=== PATIENT | female | born 1935 | race Caucasian/White ===

== ENCOUNTER → 2016-05-25 | Outpatient (CLI) | payer BC ==
[~2016-05-25] MED LIST: ADVIN25050 INH; ALBUAER2 INH; CETI10TA99 PO; CLOP1TAB15 PO; FLUT0.0529 NAE; GABA1CAP PO; NATURAL TEARS OPB; SUMA50TA15 PO; ZNTT/150 PO; [UNRECOGNIZED DRUG - OTHER] OPB
[2016-05-25 18:23] LABS: ALT/SGPT 23 U/L (12-78); AST/SGOT 14 U/L (15-37); BLOOD UREA NITROGEN 14 mg/dl (7-18); BUN/CREATININE RATIO 15.6 (10-20); CALCIUM 8.7 mg/dl (8.5-10.1); CARBON DIOXIDE 27 mmol/L (21-32); CHLORIDE 111 mmol/L (98-107); CREATININE 0.89 mg/dl (0.60-1.20); GLUCOSE 88 mg/dl (70-99); POTASSIUM 3.3 mmol/L (3.5-5.1); SODIUM 145 mmol/L (136-145)
[2016-05-25 18:33] LABS: ALB/GLOB RATIO 1.1 (0.9-2); ALKALINE PHOSPHATASE 58 U/L (45-117)
== END | disposition home or self-care (01) ==
LOC: C.LABPVFM 15:55
PROVIDERS: ATTEND Family Medicine
DX: G60.9 Hereditary and idiopathic neuropathy, unspecified (principal); Z79.899 Other long term (current) drug therapy

== ENCOUNTER → 2016-06-05 | Outpatient (CLI) | payer BC ==
--- NOTE | 2016-06-05 13:56 | DIAGNOSTIC IMAGING REPORT ---
CERVICAL SPINE 6 VIEWS HISTORY: Pain NECK PAIN COMPARISON: None. FINDINGS: The cervical spine is visualized from C1 through the superior endplate of T1. There is no fracture. Grade 1. Reverse spondylolisthesis C3 on C4. Maximum posterior displacement is 2.5 mm. Superior to be secondary to degenerative changes of posterior elements. Moderate degenerative vertebral this changes from C3 through C4. Disc spaces are preserved. Prevertebral soft tissues and the atlantodens interval are intact. Moderate osteophytic narrowing of the neuroforamina bilaterally at C3-C4 IMPRESSION: Moderate degenerative change of the cervical spine with a grade 1 reversal retrolisthesis of C3 on C4. Moderate osteophytic narrowing of the upper neural foramina bilaterally. Mild degenerative disc changes throughout. Electronically signed by: Zuhair Vaughan M.D. 06/05/2016 1:55 PM Dictated Date/Time: 06/05/2016 1:51 PM
== END | disposition home or self-care (01) ==
LOC: C.RADPV 13:00
PROVIDERS: ATTEND Psychiatry & Neurology Neurology
DX: M54.2 Cervicalgia (principal); M47.812 Spondylosis without myelopathy or radiculopathy, cervical region; M43.12 Spondylolisthesis, cervical region; M25.78 Osteophyte, vertebrae; M48.02 Spinal stenosis, cervical region

== ENCOUNTER → 2017-06-19 | Outpatient (CLI) | payer BC ==
[~2017-06-19] MED LIST changes: +GABA100C13 PO; -GABA1CAP PO; +RANI150T85 PO; -ZNTT/150 PO
--- NOTE | 2017-06-20 14:43 | MAMMOGRAPHY REPORT ---
BILATERAL DIGITAL SCREENING MAMMOGRAM TOMOSYNTHESIS WITH CAD: 06/19/2017 CLINICAL HISTORY: Routine screening. Patient has no complaints. TECHNIQUE: Breast tomosynthesis in addition to standard 2D mammography was performed. Current study was also evaluated with a Computer Aided Detection (CAD) system. COMPARISON: Comparison is made to exams dated: 02/09/2015 mammogram, 02/18/2013 mammogram, 01/17/2012 mammogram, 06/16/2010 mammogram - [facility], 10/14/2008, and 10/05/2008. BREAST COMPOSITION: The tissue of both breasts is almost entirely fatty. FINDINGS: There are moderate to marked vascular calcifications in both breasts. No suspicious mass, architectural distortion or cluster of microcalcifications is seen. IMPRESSION: ACR BI-RADS CATEGORY 2: BENIGN There is no mammographic evidence of malignancy. A 1 year screening mammogram is recommended. The pa tient will receive written notification of the results. Approximately 10% of breast cancers are not detected with mammography. A negative mammographic report should not delay biopsy if a clinically suggestive mass is present. Zo Duenas M.D. ay/:06/19/2017 15:18:55 Computer Forensic Examiner: Nilda Haley, [facility] letter sent: Normal 1/2 BI-RADS Code: ACR BI-RADS Category 2: Benign
== END | disposition home or self-care (01) ==
LOC: C.MAMM 13:47
PROVIDERS: ATTEND Family Medicine
DX: Z12.31 Encounter for screening mammogram for malignant neoplasm of breast (principal)

== ENCOUNTER 2017-07-07 16:36 | Inpatient (IN) | payer BC, OTHER ==
[~2017-07-07] VITALS: Ht 162.6 cm; Wt 76.6 kg
[2017-07-07] MEDS ORDERED: SODIUM CHLORIDE 0.9% 1000ML 1,000 ML IV STA ×2 (16:50→19:34)
[2017-07-07] MEDS ORDERED: ACETAMINOPHEN 500 MG TAB PO STA (16:50)
[2017-07-07 17:39] LABS: HEMATOCRIT 38.2 % (37-47); HEMOGLOBIN 12.6 g/dL (12.0-16.0); MEAN CELL VOLUME 92.3 fL (80-100); MEAN CORPUSCULAR HEMOGLOBIN 30.4 pg (25-34); PLATELET COUNT 227 K/uL (130-400); WHITE BLOOD COUNT 8.26 K/uL (4.8-10.8)
[2017-07-07 17:48] LABS: INR 0.9 (0.9-1.1); PTT PATIENT 30.3 SECONDS (21.0-31.0)
[2017-07-07] MEDS ORDERED: ADVIN25/60 INH (17:54)
[2017-07-07 17:56] LABS: ALBUMIN 3.8 gm/dl (3.4-5.0); ALT/SGPT 35 U/L (12-78); AST/SGOT 32 U/L (15-37); BLOOD UREA NITROGEN 13 mg/dl (7-18); CALCIUM 8.7 mg/dl (8.5-10.1); CARBON DIOXIDE 24 mmol/L (21-32); CREATININE 0.96 mg/dl (0.60-1.20); GLUCOSE 135 mg/dl (70-99); POTASSIUM 3.8 mmol/L (3.5-5.1); SODIUM 139 mmol/L (136-145)
[2017-07-07] MEDS ORDERED: CLB100 PO (17:56)
[2017-07-07] MEDS ORDERED: OMEP20TA PO (17:58)
[2017-07-07] MEDS ORDERED: TOPI50TA16 PO (18:00)
[2017-07-07 18:01] LABS: ALKALINE PHOSPHATASE 59 U/L (45-117); CKMB 2.8 ng/ml (0.5-3.6); TOTAL PROTEIN 7.9 gm/dl (6.4-8.2)
[2017-07-07 18:04] LABS: BASO % 0.5 %; BASO ABS # 0.04 K/uL (0-0.2); EOS % 2.3 %; EOS ABS # 0.19 K/uL (0-0.5); IG# 0.02 K/uL (0.00-0.02); LYMPH % 6.4 %; LYMPH ABS # 0.53 K/uL (1.2-3.4); MONO % 7.6 %; MONO ABS # 0.63 K/uL (0.11-0.59); NEUT ABS # 6.85 K/uL (1.4-6.5)
[2017-07-07] MEDS ORDERED: ARTIOIN27 OPB (18:06)
[2017-07-07] MEDS ORDERED: SUMA100T16 PO (18:08)
[2017-07-07] MEDS ORDERED: CHOL1000 PO (18:10)
[2017-07-07] MEDS ORDERED: KRIL1000 PO (18:11)
[2017-07-07 18:13] LABS: INFLUENZA A PCR Neg for Influ A (NEG)
--- NOTE | 2017-07-07 18:14 | DIAGNOSTIC IMAGING REPORT ---
CHEST 2 VIEWS ROUTINE CLINICAL HISTORY: Evaluate Fever/Sepsis COMPARISON STUDY: 08/16/2014 FINDINGS: Chronic pleural and parenchymal change medial right cardiophrenic angle. Subtle increase in density left lung base with poor visibility left hemidiaphragm. A superimposed infiltrate is felt to be present. Mid and upper lungs are considered clear. IMPRESSION: 1. Chronic bibasilar change. 2. Small superimposed parenchymal infiltrate left base. The above report was generated using voice recognition software. It may contain grammatical, syntax or spelling errors. Electronically signed by: Zuhair Vaughan M.D. 07/07/2017 6:12 PM Dictated Date/Time: 07/07/2017 6:12 PM
[2017-07-07 18:17] LABS: INFLUENZA B PCR POS for Influ B (NEG)
[2017-07-07] MEDS ORDERED: OSELTAMIVIR PHOSPHATE 75 MG CAP PO STA (18:40)
[2017-07-07] MEDS ORDERED: CEFTRIAXONE SOD INJ 1 GM ADDVIAL IV STA (18:40)
--- NOTE | 2017-07-07 18:54 | EMERGENCY ROOM VISIT NOTE ---
History Report prepared by Jeffry: Mariam Eagle Under the Supervision of: Dr. Vasile Cid D.O. First contact with patient: 16:44 Chief Complaint: FEVER Stated Complaint: FEVER,COLD, TEMP 101 History of Present Illness The patient is a 82 year old female who presents to the Emergency Room with complaints of a persistent fever that began earlier today. She reports that she recently traveled to [place] for a [employer] tournament this weekend, noting that afterwards she felt tired and felt much better after using her inhaler. Today, she woke up feeling fine. Around noon today, the patient began shaking, noting that due to the shaking she was unable to speak properly. Her granddaughter, who is a travel nurse, checked her vital signs and told her that she had a fever of 101 degrees Fahrenheit. The patient states that she did not take anything for the fever and decided to come to the Emergency Department for further evaluation. She denies any coughing, irregular urinary patterns, chest pain, or redness in her arms or legs. The patient states that she currently takes blood thinners. She reports a history of an aortic valve replacement, meningioma, and cataract surgery, but denies any history of cancer. Source of History: patient Onset: today Position: other (skin throughout body) Quality: other (fever) Timing: other (persistent) Associated Symptoms: No cough, No chest pain Note: Associated symptoms include: shaking. Patient denies: irregular urinary patterns or redness in her arms or legs. Review of Systems See HPI for pertinent positives & negatives. A total of 10 systems reviewed and were otherwise negative. Past Medical & Surgical Medical Problems: (1) Pneumonia Family History Diabetes mellitus Heart disease Hypertension Lung disease Social History Smoking Status: Never Smoker Alcohol Use: none Drug Use: none Marital Status: Housing Status: lives alone Occupation Status: unemployed Current/Historical Medications Scheduled Albuterol (Ventolin), 2 PUFFS INH QID PRN Artificial Tear Ointment (Refresh P.m.), 1 APPLN OPB UD Cefdinir (Omnicef), 300 MG PO Q12H Celecoxib (Celebrex), 1 CAP PO BID Cholecalciferol (Vitamin D3), 1,000 UNITS PO DAILY Clopidogrel (Plavix), 75 MG PO DAILY Fluticasone Prop/Salmeterol (Advair Diskus 250/50 60 Dose), 1 PUFFS INH BID Krill Oil (Krill Oil), 1 CAP PO DAILY Omeprazole (Omeprazole), 20 MG PO DAILY Oseltamivir (Tamiflu), 75 MG PO BID Ranitidine (Zantac), 150 MG PO BID Sumatriptan Succinate (Imitrex), 100 MG PO PRN Topiramate (Topamax), 125 MG PO DAILY [Natural Tears], OPB PRN Scheduled PRN Cetirizine Hcl (Zyrtec Allergy), 5 MG PO DAILY PRN for Allergic Reaction Allergies Coded Allergies: Penicillins (Verified Allergy, Mild, swelling, 08/16/14) Physical Exam Vital Signs Date Time Temp Pulse Resp B/P (MAP) Pulse Ox O2 Delivery O2 Flow Rate FiO2 07/07/17 22:02 37.4 91 24 95/48 94 Room Air 07/07/17 20:54 86 20 94/50 95 Room Air 07/07/17 20:00 37.5 88 22 108/49 93 Room Air 07/07/17 18:54 38.4 99 20 123/56 93 Room Air 07/07/17 17:16 117 07/07/17 16:59 97 Room Air 07/07/17 16:40 39.3 122 20 145/71 97 Room Air Physical Exam GENERAL: Patient is awake, alert, and in no acute distress. Patient is mildly anxious appearing, but comfortable EYES: The conjunctivae are clear. The pupils are round and reactive. EARS, NOSE, MOUTH AND THROAT: The nose is without any evidence of any deformity. Mucous membranes are dried, tongue is midline NECK: The neck is nontender and supple. RESPIRATORY: Lung sounds are diminished at right base. Rales at right base. No tachypnea or conversational dyspnea. noted. CARDIOVASCULAR: Tachycardic rate but regular rhythm noted. There are no definite murmurs, rubs, or gallops. Normal S1, normal S2 GASTROINTESTINAL: The abdomen is soft. Bowel sounds are present in all quadrants. Abdomen is nontender MUSCULOSKELETAL/EXTREMITIES: There is no evidence of gross deformity full range of motion is noted in the hips and shoulders SKIN: There is no obvious evidence of any rash. There are no petechiae, pallor or cyanosis noted. NEUROLOGIC: Patient is awake alert and oriented x3 strength is symmetric patellar reflexes are 2+ bilaterally Medical Decision & Procedures ER Provider Diagnostic Interpretation: Radiology results as stated below per my review and radiologist interpretation: CHEST 2 VIEWS ROUTINE CLINICAL HISTORY: Evaluate Fever/Sepsis COMPARISON STUDY: 08/16/2014 FINDINGS: Chronic pleural and parenchymal change medial right cardiophrenic angle. Subtle increase in density left lung base with poor visibility left hemidiaphragm. A superimposed infiltrate is felt to be present. Mid and upper lungs are considered clear. IMPRESSION: 1. Chronic bibasilar change. 2. Small superimposed parenchymal infiltrate left base. The above report was generated using voice recognition software. It may contain grammatical, syntax or spelling errors. Electronically signed by: Zuhair Vaughan M.D. 07/07/2017 6:12 PM Dictated Date/Time: 07/07/2017 6:12 PM Laboratory Results Test 07/07/17 17:10 07/07/17 17:16 07/07/17 17:30 Influenza Type A (RT-PCR) Neg for Influ A (NEG) Influenza Type B (RT-PCR) POS for Influ B (NEG) Red Blood Cell Morphology Unremarkable Erythrocyte Sedimentation Rate 21 mm/hr (0-21) Prothrombin Time 9.9 SECONDS (9.0-12.0) Prothromb Time International Ratio 0.9 (0.9-1.1) Activated Partial Thromboplast Time 30.3 SECONDS (21.0-31.0) Partial Thromboplastin Ratio 1.2 Total Bilirubin 0.2 mg/dl (0.2-1) Direct Bilirubin < 0.1 mg/dl (0-0.2) Aspartate Amino Transf (AST/SGOT) 32 U/L (15-37) Alanine Aminotransferase (ALT/SGPT) 35 U/L (12-78) Alkaline Phosphatase 59 U/L (45-117) Creatine Kinase MB 2.8 ng/ml (0.5-3.6) Creatine Kinase MB Ratio 1.0 (0-3.0) Troponin I < 0.015 ng/ml (0-0.045) Total Protein 7.9 gm/dl (6.4-8.2) Albumin 3.8 gm/dl (3.4-5.0) Bedside Lactic Acid Venous 2.00 mmol/L (0.90-1.70) Laboratory results per my review. Medications Administered Medications (Trade) Dose Ordered Sig/Melida Route Start Time Stop Time Status Last Admin Dose Admin Acetaminophen (Tylenol Tab) 1,000 mg NOW STAT PO 07/07/17 16:50 07/07/17 16:51 DC 07/07/17 17:17 1,000 MG Sodium Chloride 1,000 ml @ 999 mls/hr Q1H1M STAT IV 07/07/17 16:50 07/07/17 17:50 DC 07/07/17 17:16 999 MLS/HR Oseltamivir Phosphate (Tamiflu Cap) 75 mg NOW STAT PO 07/07/17 18:40 07/07/17 18:41 DC 07/07/17 19:08 75 MG Ceftriaxone Sodium (Rocephin Inj) 1 gm NOW STAT IV 07/07/17 18:40 07/07/17 18:41 DC 07/07/17 19:08 1 GM Sodium Chloride 1,000 ml @ 999 mls/hr Q1H1M STAT IV 07/07/17 19:34 07/07/17 20:34 DC 07/07/17 19:57 999 MLS/HR Ketorolac Tromethamine (Toradol Inj) 10 mg NOW STAT IV 07/07/17 19:34 07/07/17 19:35 DC 07/07/17 19:57 10 MG Acetaminophen (Tylenol Tab) 650 mg Q4H PRN PO 07/07/17 22:30 08/06/17 22:29 07/08/17 15:34 650 MG Sumatriptan Succinate (Imitrex Tab) 100 mg PRN PRN PO 07/07/17 22:30 08/06/17 22:29 07/08/17 15:58 100 MG ECG Per My Interpretation Indication: weakness Rate (beats per minute): 102 Rhythm: sinus tachycardia Findings: other (frequent PVC's noted, no acute ST abnormalities) Change: no significant change (08/17/14) Change: 2nd EKG: Sinus rhythm, rate of 99, PAC's noted, no acute ST segments abnormalities, similar to most recent EKG. ED Course 1645: The patient was evaluated in room B6. A complete history and physical examination were performed. 1649: Ordered Sodium Chloride 1000 ml @ 999 mls/hr IV and Tylenol Tab 1000mg PO. 1839: Ordered Rocephin Inj 1gm IV and Tamiflu Cap 75mg PO. 1845: I reevaluated the patient, who was resting. Discussed test findings with her and her daughter. They verbalized complete understanding and agreement. 1933: Ordered Toradol Inj 10mg IV and Sodium Chloride 1000 ml @ 999 mls/hr IV. 2116: The patient's blood pressure is still low. 2202: I discussed the patient's case [facility] The patient will be evaluated for further management. 2214: I reevaluated the patient, who was resting. I updated her on test findings and the treatment plan. She verbalized complete understanding and agreement. Medical Decision Prior records/ancillary studies reviewed. Triage Nursing notes reviewed. The patient's history was concerning for fever. Differential diagnosis: Etiologies such as viral syndrome, otitis, pharyngitis, pneumonia, influenza, meningitis, urinary tract infection, sepsis, bacteremia, as well as others were entertained. The patient is an 82-year-old female who presented to the emergency department with a one-day history of fever and chills. The patient also had a cough. Her history and physical exam appear to be consistent with influenza and her influenza swab was positive but she was also found to have a possible pneumonia noted on chest x-ray. She was treated with antipyretics IV fluids IV antibiotics as well as Tamiflu. Initially her blood pressure was acceptable however it started to drop. I discussed patient's laboratory and radiographic studies with her. Because of her symptoms and worsening vital signs I also discussed her case with the on-call [facility] hospitalist. They have agreed to evaluate the patient in the emergency department for further management and disposition. Medication Reconcilliation Current Medication List: was personally reviewed by me Blood Pressure Screening Patient's blood pressure: Low blood pressure Blood pressure disposition: Referred to PCP (hospitalist) Consults Time Called: 2202 Consulting Physician: [facility] Returned Call: [phone] I discussed the patient's case with Dr[facility]. The patient will be evaluated for further management. Impression Primary Impression: Influenza Additional Impressions: Pneumonia Hypotension Scribe Attestation The scribe's documentation has been prepared under my direction and personally reviewed by me in its entirety. I confirm that the note above accurately reflects all work, treatment, procedures, and medical decision making performed by me. Departure Information Prescriptions Cefdinir (OMNICEF) 300 Mg Cap 300 MG PO Q12H, #14 CAP Prov: Vasile Cid, 07/07/17 Oseltamivir (Tamiflu) 75 Mg Cap 75 MG PO BID, #10 CAP Prov: Vasile Cid, DO 07/07/17 Referrals No Doctor, Assigned (PCP) Forms HOME CARE DOCUMENTATION FORM, IMPORTANT VISIT INFORMATION Patient Instructions My [facility] Problem Qualifiers Additional Impressions: Pneumonia Pneumonia type: due to unspecified organism Laterality: unspecified laterality Lung location: unspecified part of lung Qualified Codes: J18.9 - Pneumonia, unspecified organism Hypotension Hypotension type: unspecified hypotension type Qualified Codes: I95.9 - Hypotension, unspecified
[2017-07-07] MEDS ORDERED: OSEL75CA12 PO (18:56)
[2017-07-07] MEDS ORDERED: CEFD300C2 PO (18:56)
[2017-07-07] MEDS ORDERED: KETOROLAC TROMETHAMINE 30 MG/ML VIAL IV STA (19:34)
[2017-07-07] MEDS ORDERED: PREMIXED IN D5W 150 ML IV SCH (22:30)
[2017-07-07] MEDS ORDERED: CETIRIZINE HCL 10 MG TAB PO PRN (22:30)
[2017-07-07] MEDS ORDERED: SUMATRIPTAN SUCC TAB 100 MG TAB PO PRN (22:30)
[2017-07-07] MEDS ORDERED: ALUMINUM/MAGNESIUM/SIMETH (MAALOX MAX) 30 ML UDC PO PRN (22:30)
[2017-07-07] MEDS ORDERED: ONDANSETRON INJ 2 MG/ML 2 ML VIAL IV PRN (22:30)
[2017-07-07] MEDS ORDERED: MAGNESIUM HYDROXIDE SUSP 30 ML UDC PO PRN (22:30)
[2017-07-07] MEDS ORDERED: POLYETHYLENE (MIRALAX) 17 GM PACK PO PRN (22:30)
--- NOTE | 2017-07-07 22:46 | History and Physical ---
History & Physical Date & Time of Service: Jul 07, 2017 at 22:46 Chief Complaint: Fever,Cold, Temp 101 Primary Care Physician: Helen Moreno M.D. History of Present Illness Source: patient, hospital records 82 yo history of asthma fever, chills since 12 pm, temperature 101.7. She also reports bodyaches since last night. She reports worsening dry cough. She denies Chest tightness, wheezing n/v, abdominal pain, diarrhea. She denies use of her albuterol inhaler. She reports she has received flu vaccine and pneumonia vaccine. In ED, she arrived febrile 38.4, maintaining saturation. Her flu swab was positive for Influenza B. CXR was positive for Left lower lobe infiltrate. She was given Rocephin, Toradol, Tamiflu, Tylenol, IV NS 1L x2 Past Medical/Surgical History Medical Problems: (1) Asthma (2) Chest pain (3) Heart disease (4) HTN (hypertension) (5) Pneumonia Surgical Problems: (1) History of knee replacement Family History Diabetes mellitus Heart disease Hypertension Lung disease Diabetes Social History Smoking Status: Never Smoker Smokeless Tobacco Use: No Alcohol Use: none Drug Use: none Marital Status: Housing status: lives with family Occupational Status: unemployed Immunizations History of Influenza Vaccine: Yes Influenza Vaccine Date: Dec 27, 2008 History of Tetanus Vaccine?: Unknown History of Pneumococcal: Unknown History of Hepatitis B Vaccine: Unknown Allergies Coded Allergies: Penicillins (Verified Allergy, Mild, swelling, 08/16/14) Home Medications Scheduled Albuterol (Ventolin), 2 PUFFS INH QID PRN Artificial Tear Ointment (Refresh P.m.), 1 APPLN OPB UD Cefdinir (Omnicef), 300 MG PO Q12H Celecoxib (Celebrex), 1 CAP PO BID Cholecalciferol (Vitamin D3), 1,000 UNITS PO DAILY Clopidogrel (Plavix), 75 MG PO DAILY Fluticasone Prop/Salmeterol (Advair Diskus 250/50 60 Dose), 1 PUFFS INH BID Krill Oil (Krill Oil), 1 CAP PO DAILY Omeprazole (Omeprazole), 20 MG PO DAILY Oseltamivir (Tamiflu), 75 MG PO BID Ranitidine (Zantac), 150 MG PO BID Sumatriptan Succinate (Imitrex), 100 MG PO PRN Topiramate (Topamax), 125 MG PO DAILY [Natural Tears], OPB PRN Scheduled PRN Cetirizine Hcl (Zyrtec Allergy), 5 MG PO DAILY PRN for Allergic Reaction Review of Systems Constitutional: + fever, + chills, + problem reported (bodyaches) Respiratory: + cough, No sputum, No wheezing, No shortness of breath Cardiovascular: No chest pain, No edema, No palpitations Abdomen: No pain, No nausea, No vomiting, No diarrhea Genitourinary - Female: No dysuria, No urinary frequency, No urinary urgency Integumentary: No rash, No itch Physical Exam Vital Signs Date Time Temp Pulse Resp B/P (MAP) Pulse Ox O2 Delivery O2 Flow Rate FiO2 07/07/17 22:02 37.4 91 24 95/48 94 Room Air 07/07/17 20:54 86 20 94/50 95 Room Air 07/07/17 20:00 37.5 88 22 108/49 93 Room Air 07/07/17 18:54 38.4 99 20 123/56 93 Room Air 07/07/17 17:16 117 07/07/17 16:59 97 Room Air 07/07/17 16:40 39.3 122 20 145/71 97 Room Air General Appearance: WD/WN, no apparent distress Head: normocephalic, atraumatic Eyes: PERRL, EOMI, sclerae normal ENT: pharynx normal Neck: supple, no adenopathy, trachea midline Respiratory/Chest: no respiratory distress, no accessory muscle use, + rhonchi (bilateral), + wheezing (mild) Cardiovascular: regular rate, rhythm, no edema, no murmur Abdomen/GI: normal bowel sounds, non tender, soft Back: normal inspection, normal range of motion Extremities/Musculoskelatal: no calf tenderness, no pedal edema Neurologic/Psych: 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, no motor/sensory deficits, alert, normal mood/affect, oriented x 3, + pertinent finding (normal finger to nose testing, ) Skin: normal color, warm/dry, no rash Diagnostics Laboratory Results Results Past 24 Hours Test 07/07/17 17:10 07/07/17 17:16 07/07/17 17:30 Range/Units Influenza Type A (RT-PCR) Neg for Influ A NEG Influenza Type B (RT-PCR) POS for Influ B NEG White Blood Count 8.26 4.8-10.8 K/uL Red Blood Count 4.14 4.2-5.4 M/uL Hemoglobin 12.6 12.0-16.0 g/dL Hematocrit 38.2 37-47 % Mean Corpuscular Volume 92.3 80-100 fL Mean Corpuscular Hemoglobin 30.4 25-34 pg Mean Corpuscular Hemoglobin Concent 33.0 32-36 g/dl Platelet Count 227 130-400 K/uL Mean Platelet Volume 10.0 7.4-10.4 fL Neutrophils (%) (Auto) 83.0 % Lymphocytes (%) (Auto) 6.4 % Monocytes (%) (Auto) 7.6 % Eosinophils (%) (Auto) 2.3 % Basophils (%) (Auto) 0.5 % Neutrophils # (Auto) 6.85 1.4-6.5 K/uL Lymphocytes # (Auto) 0.53 1.2-3.4 K/uL Monocytes # (Auto) 0.63 0.11-0.59 K/uL Eosinophils # (Auto) 0.19 0-0.5 K/uL Basophils # (Auto) 0.04 0-0.2 K/uL RDW Standard Deviation 51.0 36.4-46.3 fL RDW Coefficient of Variation 15.0 11.5-14.5 % Immature Granulocyte % (Auto) 0.2 % Immature Granulocyte # (Auto) 0.02 0.00-0.02 K/uL Red Blood Cell Morphology Unremarkable Erythrocyte Sedimentation Rate 21 0-21 mm/hr Prothrombin Time 9.9 9.0-12.0 SECONDS Prothromb Time International Ratio 0.9 0.9-1.1 Activated Partial Thromboplast Time 30.3 21.0-31.0 SECONDS Partial Thromboplastin Ratio 1.2 Sodium Level 139 136-145 mmol/L Potassium Level 3.8 3.5-5.1 mmol/L Chloride Level 109 98-107 mmol/L Carbon Dioxide Level 24 21-32 mmol/L Anion Gap 6.0 3-11 mmol/L Blood Urea Nitrogen 13 7-18 mg/dl Creatinine 0.96 0.60-1.20 mg/dl Estimated GFR () 62.9 Estimated GFR (Non- 54.3 BUN/Creatinine Ratio 13.2 10-20 Random Glucose 135 70-99 mg/dl Calcium Level 8.7 8.5-10.1 mg/dl Total Bilirubin 0.2 0.2-1 mg/dl Direct Bilirubin < 0.1 0-0.2 mg/dl Aspartate Amino Transf (AST/SGOT) 32 15-37 U/L Alanine Aminotransferase (ALT/SGPT) 35 12-78 U/L Alkaline Phosphatase 59 45-117 U/L Total Creatine Kinase 289 26-192 U/L Creatine Kinase MB 2.8 0.5-3.6 ng/ml Creatine Kinase MB Ratio 1.0 0-3.0 Troponin I < 0.015 0-0.045 ng/ml Total Protein 7.9 6.4-8.2 gm/dl Albumin 3.8 3.4-5.0 gm/dl Bedside Lactic Acid Venous 2.00 0.90-1.70 mmol/L Microbiology Results 07/07/17 Blood Culture, Received Pending 07/07/17 Blood Culture, Received Pending Diagnostic Radiology CHEST 2 VIEWS ROUTINE CLINICAL HISTORY: Evaluate Fever/Sepsis COMPARISON STUDY: 08/16/2014 FINDINGS: Chronic pleural and parenchymal change medial right cardiophrenic angle. Subtle increase in density left lung base with poor visibility left hemidiaphragm. A superimposed infiltrate is felt to be present. Mid and upper lungs are considered clear. IMPRESSION: 1. Chronic bibasilar change. 2. Small superimposed parenchymal infiltrate left base. EKG Rate (beats per minute): 102 Rhythm: sinus tachycardia Findings: other (frequent PVC's noted, no acute ST abnormalities) Change: no significant change (08/17/14) Impression Assessment and Plan 82 yo F presenting with Fever, Cough found to be positive for Influenza B, LLL infiltrate on CXR Influenza - Tamiflu 75 BID -reportedly received influenza vaccine previously Pneumonia: LLL infiltrate in setting of Influenza - febrile, normal O2 saturation, no distress, normal White ct - CXR . Small superimposed parenchymal infiltrate left base. - sputum gram stain and cx - recheck cbc in morning , blood cx - Levaquin, Ceftriaxone - Guaifenesin - Duonebs - Pulmicort Respules .5 bid GERD - Protonix, Ranitidine Migraine hx: prn imitrex, topamax DVT PPX - Heparin Code: Full , no mechanical ventilation Attending addendum: I have physically seen this patient, have supervised the medical residents activities, and agree with the H&P unless as otherwise noted. Assessment and Plan: Influenza B-- Tamiflu 30 mg p.o. twice daily renally adjusted dosing. Left lower lobe pneumonia-- Ceftriaxone 1 g IV daily Levofloxacin 500 mg IV every 24 hours Pulmicort Respules 0.5 mg inhaled twice daily Guaifenesin extended release 600 mg by mouth twice a day Duonebs every 4 hours while awake and every 2 hours when necessary. Nasal cannula 2 L of oxygen titrating to keep pulse ox greater than or equal to 92%. GERD-- Continue pantoprazole and ranitidine. Migraine headache-- Continue Topamax and as needed Imitrex. Advanced Directives Existing Advance Directive: Yes Existing Living Will: Yes Resuscitation Status VTE Prophylaxis Will order VTE Prophylaxis: Yes Social Service Consult >80 yr.& Lives Alone Note Total Time: Critical Care 30 - 74 minutes Resident Tracking Resident Involvement: Resident Care Provided Care Provided: Adult Hospital Medicine
[2017-07-08] VITALS (12 sets, daily range): BP systolic 99–146; BP diastolic 60–76; PULSE 70–99; TEMP 36.8–38.9; O2SAT 93–98; Ht 162.6 cm; Wt 76.6 kg
[2017-07-08] MEDS ORDERED: PATIENT'S HEIGHT AND/OR WEIGHT NEEDED SCH (00:15)
[2017-07-08] MEDS ORDERED: SODIUM CHLORIDE 0.9% 1000ML 1,000 ML IV SCH (01:00)
[2017-07-08] MEDS: ACETAMINOPHEN 325 MG TAB PO PRN ×2 (01:24→15:34)
[2017-07-08] MEDS ORDERED: LEVALBUTEROL 1.25MG/0.5ML NEB INH SCH (03:00)
[2017-07-08] MEDS: GUAIFENESIN 200 MG TAB PO SCH ×6 (05:01→23:15)
[2017-07-08] MEDS ORDERED: HEPARIN SOD 5000 UNIT/0.5 ML CARP SQ SCH (06:00)
[2017-07-08 06:33] LABS: HEMATOCRIT 32.6 % (37-47); HEMOGLOBIN 10.6 g/dL (12.0-16.0); MEAN CELL VOLUME 93.4 fL (80-100); MEAN CORPUSCULAR HEMOGLOBIN 30.4 pg (25-34); MEAN CORPUSCULAR HGB CONC 32.5 g/dl (32-36); MEAN PLATELET VOLUME 9.7 fL (7.4-10.4); PLATELET COUNT 179 K/uL (130-400); RED CELL DISTRIBUTION WIDTH CV 15.3 % (11.5-14.5); RED CELL DISTRIBUTION WIDTH SD 52.4 fL (36.4-46.3); WHITE BLOOD COUNT 8.78 K/uL (4.8-10.8)
[2017-07-08] MEDS: ALBUT/IPRATROP 3MG/0.5MG NEB 3 ML VIAL INH SCH ×4 (07:03→19:11)
[2017-07-08] MEDS: BUDESONIDE 0.5 MG/2 ML VIAL (PULMICORT) INH SCH ×2 (07:03→19:11)
[2017-07-08 07:04] LABS: CALCIUM 7.8 mg/dl (8.5-10.1); CREATININE 0.61 mg/dl (0.60-1.20); POTASSIUM 3.4 mmol/L (3.5-5.1)
[2017-07-08 07:26] LABS: BASO % 0.5 %; BASO ABS # 0.04 K/uL (0-0.2); EOS ABS # 0.09 K/uL (0-0.5); IG# 0.02 K/uL (0.00-0.02); LYMPH % 10.1 %; LYMPH ABS # 0.89 K/uL (1.2-3.4); MONO % 7.4 %; MONO ABS # 0.65 K/uL (0.11-0.59); NEUT % 80.8 %; NEUT ABS # 7.09 K/uL (1.4-6.5)
[2017-07-08] MEDS: TOPIRAMATE 50 MG TAB PO SCH (08:49)
[2017-07-08] MEDS: CLOPIDOGREL BISULFATE 75 MG TAB PO SCH (08:50)
[2017-07-08] MEDS: RANITIDINE HCL 150 MG TAB PO SCH ×2 (08:50→20:38)
[2017-07-08] MEDS: OSELTAMIVIR PHOSPHATE SUSP 30 MG/5 ML UDP PO SCH ×2 (08:50→20:41)
[2017-07-08] MEDS: PANTOprazole SOD 40 MG TAB PO SCH (08:50)
[2017-07-08] MEDS ORDERED: POTASSIUM CHLORIDE 10 MEQ TABCR PO ONE (10:15)
[2017-07-08] MEDS ORDERED: APIXABAN 2.5 MG TAB PO ONE (10:15)
[2017-07-08] MEDS ORDERED: METOPROLOL TARTRATE 25 MG TAB PO ONE (10:15)
[2017-07-08] MEDS ORDERED: POTASSIUM CHLORIDE 10 MEQ TABCR PO STA (10:57)
--- NOTE | 2017-07-08 11:03 | ECHOCARDIOGRAM REPORT ---
*NOTICE TO RECEIVING CONSTITUTION PARTY AGENCY This information is strictly Confidential and protected under [place] law. [place] law prohibits you from making any further disclosure of this information unless further disclosure is expressly permitted by the written consent of the person to whom it pertains or is authorized by law. A general authorization for the release of medical or other information is not sufficient for this purpose. Hospital accepts no responsibility if the information is made available to any other person, INCLUDING THE PATIENT. Interpretation Summary * Name: JYOTI PEGUERO Study Date: 07/08/2017 08:50 AM BP: 104/65 mmHg * Patient Location: C.2T\S\E218\S\1 HR: 88 * : 1935 (M/d/yyy) Gender: Female Height: 64 in * Age: 82 yrs Ethnicity: CA Weight: 169 lb * Ordering Physician: Pravin Tovar * Referring Physician: UNKNOWN * Performed By: Khadijah Douglass RDCS * * Reason For Study: * BSA: 1.8 m2 * -- Conclusions -- * There is mild concentric left ventricular hypertrophy. * Left ventricular systolic function is normal. * Grade I diastolic dysfunction, (abnormal relaxation pattern). * Borderline left atrial enlargement. 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 * Moderate valvular aortic stenosis. * There is mild mitral annular calcification. * There is mild mitral regurgitation. * Right ventricular systolic pressure is normal. * Compared to an echocardiogram from 08/2014, the aortic valve gradients are higher Procedure Details * A complete two-dimensional transthoracic echocardiogram was performed (2D, M-mode, Doppler and color flow Doppler). Left Ventricle * The left ventricle is normal in size. * There is mild concentric left ventricular hypertrophy. * Ejection Fraction = 60-65%. * Left ventricular systolic function is normal. * Grade I diastolic dysfunction, (abnormal relaxation pattern). * The left ventricular wall motion is normal. Right Ventricle * The right ventricle is normal in size and function. * The right ventricular systolic function is normal as assessed by tricuspid annular plane systolic excursion (TAPSE) (normal >1.5 cm). Atria * Borderline left atrial enlargement. * Right atrial size is normal. Mitral Valve * The mitral valve is normal. * There is mild mitral annular calcification. * There is mild mitral regurgitation. Tricuspid Valve * The tricuspid valve is not well visualized, but is grossly normal. * There is mild tricuspid regurgitation. * Right ventricular systolic pressure is normal. Aortic Valve * Moderate valvular aortic stenosis. * Trace aortic regurgitation. 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 * Transvalvular gradients appear slightly elevated for this valve Great Vessels * The aortic root is normal size. Pericardium/Pleural * There is no pericardial effusion. Great Vessels * Normal inferior vena cava diameter and respiratory variation suggests normal central venous pressure. MMode 2D Measurements and Calculations IVSd 1.5 cm IVSs 1.8 cm LVIDd 3.9 cm LVIDs 2.7 cm LVPWd 1.3 cm LVPWs 1.9 cm IVS/LVPW 1.1 FS 31.7 % EDV(Teich) 66.4 ml ESV(Teich) 26.3 ml EF(Teich) 60.3 % EDV(cubed) 59.9 ml ESV(cubed) 19.1 ml EF(cubed) 68.1 % % IVS thick 20.7 % % LVPW thick 39.6 % LV mass(C)d 204.5 grams LV mass(C)dI 112.3 grams/m\S\2 LV mass(C)s 195.5 grams LV mass(C)sI 107.3 grams/m\S\2 SV(Teich) 40.1 ml SI(Teich) 22.0 ml/m\S\2 SV(cubed) 40.8 ml SI(cubed) 22.4 ml/m\S\2 Ao root diam 2.7 cm Ao root area 5.6 cm\S\2 LA dimension 3.9 cm LA/Ao 1.5 LVOT diam 1.9 cm LVOT area 2.8 cm\S\2 LVAd ap4 23.5 cm\S\2 LVLd ap4 7.5 cm EDV(MOD-sp4) 60.6 ml EDV(sp4-el) 62.2 ml LVAs ap4 13.1 cm\S\2 LVLs ap4 6.1 cm ESV(MOD-sp4) 23.4 ml ESV(sp4-el) 23.8 ml EF(MOD-sp4) 61.4 % EF(sp4-el) 61.7 % LVAd ap2 24.5 cm\S\2 LVLd ap2 7.8 cm EDV(MOD-sp2) 63.8 ml EDV(sp2-el) 65.5 ml LVAs ap2 14.1 cm\S\2 LVLs ap2 6.4 cm ESV(MOD-sp2) 26.9 ml ESV(sp2-el) 26.6 ml EF(MOD-sp2) 57.9 % EF(sp2-el) 59.4 % LVLd %diff 2.8 % EDV(MOD-bp) 62.0 ml LVLs %diff 3.9 % ESV(MOD-bp) 25.3 ml EF(MOD-bp) 59.2 % SV(MOD-sp4) 37.2 ml SI(MOD-sp4) 20.4 ml/m\S\2 SV(MOD-sp2) 36.9 ml SI(MOD-sp2) 20.3 ml/m\S\2 SV(MOD-bp) 36.7 ml SI(MOD-bp) 20.2 ml/m\S\2 SV(sp4-el) 38.3 ml SI(sp4-el) 21.1 ml/m\S\2 SV(sp2-el) 38.9 ml SI(sp2-el) 21.3 ml/m\S\2 Doppler Measurements and Calculations MV E max nyla 140.0 cm/sec MV A max nyla 142.7 cm/sec MV E/A 0.98 MV dec time 0.29 sec Ao V2 max 359.2 cm/sec Ao max PG 51.7 mmHg Ao max PG (full) 43.7 mmHg Ao V2 mean 255.3 cm/sec Ao mean PG 29.5 mmHg Ao mean PG (full) 25.1 mmHg Ao V2 VTI 70.9 cm SINDHU(I,A) 1.2 cm\S\2 SINDHU(I,D) 1.2 cm\S\2 SINDHU(V,A) 1.1 cm\S\2 SINDHU(V,D) 1.1 cm\S\2 LV V1 max PG 8.0 mmHg LV V1 mean PG 4.4 mmHg LV V1 max 141.4 cm/sec LV V1 mean 99.8 cm/sec LV V1 VTI 29.2 cm SV(Ao) 397.0 ml SI(Ao) 218.0 ml/m\S\2 SV(LVOT) 82.6 ml SI(LVOT) 45.3 ml/m\S\2 TR max nyla 250.9 cm/sec
[2017-07-08] MEDS ORDERED: NURSING VERBAL MED ORDER ONE ×2 (11:15)
--- NOTE | 2017-07-08 11:41 | CARDIOLOGY CONSULTATION REPORT ---
DATE OF CONSULTATION: 07/08/2017 REASON FOR CONSULTATION: New-onset Paroxysmal Atrial Fibrillation. HISTORY OF PRESENT ILLNESS: Mrs. Robert is a very pleasant 82-year-old white female with a history of Aortic Valvular Disease status post Bovine AVR in 03/2002, Dyslipidemia, Carotid Artery Disease, Palpitations (symptomatic PACs), Depression, HTN, Asthma, and Esophageal Dysmotility Disorder who was admitted acutely to [facility] on 07/07/2017 complaining of fever, chills, myalgias, arthralgias and malaise over the proceeding 12-24 hours. In the ER, she was noted to have a positive influenza B swab and a left lower lobe infiltrate. Her initial EKG shows atrial fibrillation with an elevated ventricular response rate, nonspecific ST abnormality and left axis deviation. Please note that the patient denies any prior history of atrial fibrillation -- which she is certainly at risk for it with regards to her age, history of valvular disease, hypertension, and she is currently hypokalemic. Patient did not have any significant symptoms other than a few skipped beats related to atrial fibrillation. She denies any associated chest pain, heaviness, tightness, pressure, or discomfort. She denies any associated shortness of breath, dyspnea on exertion or decrease in exertional tolerance. She denies any syncope or near syncope. MEDICATIONS: 1. Ceftriaxone 2 g IV q. 24 hours. 2. Plavix 75 mg daily. 3. Zantac 150 mg b.i.d. 4. Topamax 125 mg daily. 5. Protonix 40 mg daily. 6. Tamiflu b.i.d. 7. DuoNeb nebulizers q.i.d. 8. Pulmicort Respules 0.5 mg inhaled b.i.d. 9. Heparin 5000 units subcutaneous injection q. 8 hours. 10. Organidin 200 mg q. 4 hours. 11. Normal saline at 100 mL/hour. 12. Tylenol 650 mg p.o. q. 4 hours p.r.n. for pain or fever. 13. Maalox Max p.r.n. 14. Milk of magnesia p.r.n. 15. Zofran 4 mg IV q. 6 hours p.r.n. for nausea. 16. MiraLax 17 g daily as needed. 17. Zyrtec 5 mg daily as needed. 18. Imitrex 100 mg p.o. p.r.n. for migraine headaches. ALLERGIES: PENICILLIN. PAST MEDICAL HISTORY: 1. Asthma. 2. Allergic rhinitis. 3. History of aortic valve disease status post bovine aortic valve replacement in 2002. 4. History of palpitations secondary to PACs. 5. New-onset paroxysmal atrial fibrillation. 6. History of migraine headaches. 7. Depression. 8. Esophageal motility disorder. 9. Familial tremor. 10. Dyslipidemia. 11. Idiopathic peripheral neuropathy. 12. Periodic limb movement disorder. 13. Ptosis of the eyelid. 14. History of vertigo. 15. Currently diagnosed with influenza B. 16. History of an appendectomy. 17. History of knee surgery. SOCIAL HISTORY: Patient is . She is retired from work. Exercises routinely. Lifelong nonsmoker. Rarely drinks alcohol. FAMILY HISTORY: Significant for diabetes mellitus, heart disease, hypertension, lung disease. PHYSICAL EXAMINATION: VITAL SIGNS: Temperature is 37.1 degrees Celsius, pulse 79 and regular with occasional ectopy, respiratory rate is 18 and unlabored, blood pressure 104/65, and SpO2 is 93% on room air. GENERAL: Patient is in no acute distress. HEENT: Head is atraumatic, normocephalic. EOMs intact. Sclerae are anicteric. Face is symmetric. No perioral cyanosis. NECK: Without JVD. Carotid upstrokes +2 bilaterally without obvious bruits. JVP is at the level of the clavicle sitting upright. CHEST AND LUNGS: Left basilar crackles. CARDIOVASCULAR: S1 and S2 are regular with a harsh grade 2/6 basal systolic murmur which radiates to suprasternal notch and left sternal border. No diastolic murmurs appreciated. No gallops or rubs. BMI is nondisplaced. No lifts, heaves, or thrills. No abdominal aortic or renal bruits. ABDOMEN: Bowel sounds are present. No masses, organomegaly, or tenderness. EXTREMITIES: Without clubbing, cyanosis, or edema. NEUROLOGIC: Patient is awake, alert and oriented. Pleasant and cooperative. Answers questions appropriately. Speech is clear. Normal movement IN all 4 extremities. Gait pattern was not assessed today. LABORATORY DATA: Sodium 143 mmol/L, potassium 3.4 mmol/L, BUN is 12 mg/dL, and creatinine 0.61 mg/dL. Random glucose 111 mg/dL. Total CK is 146. Troponin I is less than 0.015 ng/mL. TSH is normal at 0.756 uIU/mL. Serology shows influenza B by PCR. Blood cultures are pending. Urine culture pending. Chest x-ray on admission shows left basilar infiltrate. The mid and upper lung delacruz are clear. Initial EKG performed on 07/07/2017 at 1650 shows atrial fibrillation with nonspecific ST abnormality, left axis deviation. ASSESSMENT: 1. Newly-diagnosed Paroxysmal Atrial Fibrillation, has spontaneously converted back to a normal sinus rhythm. 2. Aortic Valvular Disease status post Bovine AVR in 2002. 3. History of symptomatic premature atrial contractions. 4. Hypertension. 5. Dyslipidemia. 6. Currently hypokalemic. 7. History of asthma. 8. Currently infected with influenza B. 9. Carotid artery disease. 10. Esophageal dysmotility disorder. 11. Diagnoses as mentioned above. PLAN: 1. I had a long discussion today regarding what atrial fibrillation is, the risk associated with atrial fibrillation, and various management strategies. 2. She has converted back to a normal sinus rhythm on her own. 3. Patient did not have any significant symptoms with her atrial fibrillation -- so it may have occurred at different times and she did not notice it. 4. Due to her elevated CHADS-VASc score of 5, patient would benefit with oral anticoagulation. We discussed this today. 5. Recommend starting Eliquis 5 mg p.o. b.i.d. for long-term anticoagulation. Patient does not have any contraindications to anticoagulation. 6. Recommend starting a low-dose beta arsh, initially using Lopressor 12.5 mg b.i.d. 7. Echocardiogram has been performed. The interpretation has not back yet. 8. We will continue to follow along while hospitalized. Case discussed and reviewed with Mr. Biswas. I agree with above assessment and recommendations.Although she has converted to sinus rhythm, her atrial fibrillation was asymptomatic. With her elevated risk for a thromboembolic event skilled nursing anticoagulation is indicated. James White MD [facility]ITAL[facility]
[2017-07-08] MEDS ORDERED: CEFTRIAXONE SOD INJ 2,000 MG in DEXTROSE 5% 50ML 50 ML IV SCH (19:00)
--- NOTE | 2017-07-08 19:43 | Family Medicine Progress Note ---
Progress Note Date of Service Jul 08, 2017. Subjective Pt evaluation today including: conversation w/ patient, physical exam, chart review, lab review Pain: no pain PO Intake: tolerating Voiding: no voiding problems This AM pt reports wet cough (no sputum production). denies any sob, cp or palpitations, abd pain, n/v, d/c, dysuria Constitutional: No fever Respiratory: + cough, No sputum, No shortness of breath Cardiovascular: No chest pain Abdomen: No pain, No nausea, No vomiting, No diarrhea, No constipation Female : No dysuria Medications Current Inpatient Medications Medications (Trade) Dose Ordered Sig/Melida Route Start Time Stop Time Status Last Admin Dose Admin Acetaminophen (Tylenol Tab) 650 mg Q4H PRN PO 07/07/17 22:30 08/06/17 22:29 07/08/17 15:34 650 MG Al Hydrox/Mg Hydrox/Simethicone (Maalox Max Susp) 15 ml Q4H PRN PO 07/07/17 22:30 08/06/17 22:29 Magnesium Hydroxide (Milk Of Magnesia Susp) 30 ml Q12H PRN PO 07/07/17 22:30 08/06/17 22:29 Ondansetron HCl (Zofran Inj) 4 mg Q6H PRN IV 07/07/17 22:30 08/06/17 22:29 Polyethylene (Miralax Powder Packet) 17 gm DAILY PRN PO 07/07/17 22:30 08/06/17 22:29 Cetirizine HCl (zyrTEC TAB) 5 mg DAILY PRN PO 07/07/17 22:30 08/06/17 22:29 Clopidogrel Bisulfate (plAVix TAB) 75 mg DAILY PO 07/08/17 09:00 08/07/17 08:59 07/08/17 08:50 75 MG Ranitidine HCl (zANTac TAB) 150 mg BID PO 07/08/17 09:00 08/07/17 08:59 07/08/17 08:50 150 MG Sumatriptan Succinate (Imitrex Tab) 100 mg PRN PRN PO 07/07/17 22:30 08/06/17 22:29 07/08/17 15:58 100 MG Topiramate (Topamax Tab) 125 mg DAILY PO 07/08/17 09:00 08/07/17 08:59 07/08/17 08:49 125 MG Pantoprazole Sodium (Protonix Tab) 40 mg DAILY PO 07/08/17 09:00 08/07/17 08:59 07/08/17 08:50 40 MG Guaifenesin (Organidin Nr Tab) 200 mg Q4H PO 07/08/17 04:00 08/07/17 03:59 07/08/17 15:34 200 MG Albuterol/ Ipratropium (Duoneb) 3 ml QIDR INH 07/08/17 08:00 08/07/17 07:59 07/08/17 19:11 3 ML Budesonide (Pulmicort Respules 0.5MG/ 2ML Neb Soln) 0.5 mg BIDR INH 07/08/17 08:00 08/07/17 07:59 07/08/17 19:11 0.5 MG Oseltamivir Phosphate (Tamiflu Susp) 30 mg BID PO 07/08/17 09:00 07/13/17 08:59 07/08/17 08:50 30 MG Metoprolol Tartrate (Lopressor Tab) 12.5 mg BID PO 07/08/17 21:00 08/07/17 20:59 Apixaban (Eliquis Tab) 5 mg BID PO 07/08/17 21:00 08/07/17 20:59 Potassium Chloride (Klor-Con M10) 10 meq BID PO 07/08/17 21:00 08/07/17 20:59 Levofloxacin 750 mg/Prmx 150 ml @ 100 mls/hr Q24H IV 07/08/17 19:00 07/15/17 18:59 UNV Objective Vital Signs Date Time Temp Pulse Resp B/P (MAP) Pulse Ox O2 Delivery O2 Flow Rate FiO2 07/08/17 19:13 70 16 96 Room Air 07/08/17 16:00 Room Air 07/08/17 15:20 37.4 89 18 99/60 (73) 95 Room Air 07/08/17 14:55 78 16 95 Room Air 07/08/17 12:00 Room Air 07/08/17 11:21 37.2 24 124/76 (92) 98 Room Air 07/08/17 11:12 89 16 94 Room Air 07/08/17 08:00 Room Air 07/08/17 07:25 37.1 79 20 104/65 (78) 93 Room Air 07/08/17 07:03 94 16 93 Room Air 07/08/17 04:16 37.1 93 18 99/61 (74) 94 Room Air 07/08/17 04:00 Room Air 07/08/17 00:30 38.9 95 20 146/72 94 Room Air 07/07/17 23:56 37.4 80 24 119/66 94 07/07/17 23:10 80 119/66 94 Room Air 07/07/17 22:02 37.4 91 24 95/48 94 Room Air 07/07/17 20:54 86 20 94/50 95 Room Air 07/07/17 20:00 37.5 88 22 108/49 93 Room Air Physical Exam General Appearance: no apparent distress Eyes: normal inspection Neck: supple Respiratory/Chest: + rhonchi (diffuse), + pertinent finding (coarse but equal breath sounds; no respiratory distress noted) Cardiovascular: regular rate, rhythm, no murmur Abdomen: normal bowel sounds, non tender, soft Extremities: non-tender, no pedal edema Neurologic/Psychiatric: alert Laboratory Results 07/08/17 06:07 Red Blood Count 3.49, Mean Corpuscular Volume 93.4, Mean Corpuscular Hemoglobin 30.4, Mean Corpuscular Hemoglobin Concent 32.5, Mean Platelet Volume 9.7, Neutrophils (%) (Auto) 80.8, Lymphocytes (%) (Auto) 10.1, Monocytes (%) (Auto) 7.4, Eosinophils (%) (Auto) 1.0, Basophils (%) (Auto) 0.5, Neutrophils # (Auto) 7.09, Lymphocytes # (Auto) 0.89, Monocytes # (Auto) 0.65, Eosinophils # (Auto) 0.09, Basophils # (Auto) 0.04 07/08/17 06:07 Test 07/08/17 00:30 07/08/17 06:07 Urine Color YELLOW Urine Appearance CLEAR (CLEAR) Urine pH 7.0 (4.5-7.5) Urine Specific [place] 1.008 (1.000-1.030) Urine Protein NEG (NEG) Urine Glucose (UA) NEG (NEG) Urine Ketones NEG (NEG) Urine Occult Blood NEG (NEG) Urine Nitrite NEG (NEG) Urine Bilirubin NEG (NEG) Urine Urobilinogen NEG (NEG) Urine Leukocyte Esterase TRACE (NEG) Urine WBC (Auto) 5-10 /hpf (0-5) Urine RBC (Auto) 0-4 /hpf (0-4) Urine Hyaline Casts (Auto) 0 /lpf (0-5) Urine Epithelial Cells (Auto) 5-10 /lpf (0-5) Urine Bacteria (Auto) NEG (NEG) White Blood Count 8.78 K/uL (4.8-10.8) Red Blood Count 3.49 M/uL (4.2-5.4) Hemoglobin 10.6 g/dL (12.0-16.0) Hematocrit 32.6 % (37-47) Mean Corpuscular Volume 93.4 fL (80-100) Mean Corpuscular Hemoglobin 30.4 pg (25-34) Mean Corpuscular Hemoglobin Concent 32.5 g/dl (32-36) Platelet Count 179 K/uL (130-400) Mean Platelet Volume 9.7 fL (7.4-10.4) Neutrophils (%) (Auto) 80.8 % Lymphocytes (%) (Auto) 10.1 % Monocytes (%) (Auto) 7.4 % Eosinophils (%) (Auto) 1.0 % Basophils (%) (Auto) 0.5 % Neutrophils # (Auto) 7.09 K/uL (1.4-6.5) Lymphocytes # (Auto) 0.89 K/uL (1.2-3.4) Monocytes # (Auto) 0.65 K/uL (0.11-0.59) Eosinophils # (Auto) 0.09 K/uL (0-0.5) Basophils # (Auto) 0.04 K/uL (0-0.2) RDW Standard Deviation 52.4 fL (36.4-46.3) RDW Coefficient of Variation 15.3 % (11.5-14.5) Immature Granulocyte % (Auto) 0.2 % Immature Granulocyte # (Auto) 0.02 K/uL (0.00-0.02) Anion Gap 7.0 mmol/L (3-11) Est Creatinine Clear Calc Drug Dose 68.9 ml/min Estimated GFR () 96.5 Estimated GFR (Non- 83.2 BUN/Creatinine Ratio 19.7 (10-20) Calcium Level 7.8 mg/dl (8.5-10.1) Total Creatine Kinase 146 U/L (26-192) Thyroid Stimulating Hormone (TSH) 0.756 uIu/ml (0.300-4.500) Assessment and Plan 82 yoF presented with fever and cough. Positive for Influenza B. LLL infiltrate on CXR Influenza -Tamiflu 30mg BID -Received influenza vaccine before illness Pneumonia: LLL infiltrate in setting of Influenza -febrile initially, now afebrile; no WBC -normal O2 saturation, no distress -CXR . Small superimposed parenchymal infiltrate left base -Transitioned from Cefriaxone to Levaquin 750mg daily -Pulmicort Respules 0.5 mg inhaled twice daily -Guaifenesin extended release 600 mg by mouth twice a day -Duonebs every 4 hours while awake and every 2 hours when necessary Afib new onset -ECHO: EF 60-65%; mild concentric LVH; Grade 1 diastolic dysfunction; biprosthetic aortic valve with mod.stenosis; mild mitral calcification/regurg -Cards consulted: -started on eliquis 5mg PO BID for CHADsVASc score of 5 -started on lopressor 12.5mg BID GERD -Continue Protonix, Ranitidine Migraine hx: -Continue prn imitrex, topamax DVT PPX - Heparin Code: Full , no mechanical ventilation Resident Physician Supervision Note: I interviewed and examined the patient. Discussed with Dr. Harrison and agree with findings and plan as documented in the note. Any exceptions or clarifications are listed here: The patient feels improved this morning as compared to admission. Agree with treatment plan as noted above with renally dosed Tamiflu and Levaquin. Documented By: Titi Elder Resident Involvement: Resident Care Provided Care Provided: Adult Hospital Medicine
[2017-07-08] MEDS: LEVOFLOXACIN / D5W 750 MG in PREMIXED IN D5W 150 ML IV SCH (19:47)
[2017-07-08] MEDS: POTASSIUM CHLORIDE 10 MEQ TABCR PO SCH (20:37)
[2017-07-08] MEDS: APIXABAN 2.5 MG TAB PO SCH (20:37)
[2017-07-08] MEDS: METOPROLOL TARTRATE 25 MG TAB PO SCH (20:38)
[2017-07-09] VITALS (13 sets, daily range): BP systolic 107–144; BP diastolic 69–81; PULSE 61–114; TEMP 36.4–37.3; O2SAT 93–100
[2017-07-09] MEDS: GUAIFENESIN 200 MG TAB PO SCH ×6 (04:02→23:31)
[2017-07-09 06:31] LABS: HEMATOCRIT 33.2 % (37-47); HEMOGLOBIN 10.9 g/dL (12.0-16.0); MEAN CELL VOLUME 93.5 fL (80-100); MEAN CORPUSCULAR HEMOGLOBIN 30.7 pg (25-34); MEAN CORPUSCULAR HGB CONC 32.8 g/dl (32-36); MEAN PLATELET VOLUME 10.3 fL (7.4-10.4); PLATELET COUNT 176 K/uL (130-400); RED CELL DISTRIBUTION WIDTH CV 15.3 % (11.5-14.5); RED CELL DISTRIBUTION WIDTH SD 52.2 fL (36.4-46.3)
[2017-07-09 06:59] LABS: BASO % 0.5 %; BASO ABS # 0.03 K/uL (0-0.2); EOS % 2.3 %; EOS ABS # 0.13 K/uL (0-0.5); IG# 0.01 K/uL (0.00-0.02); LYMPH % 13.7 %; LYMPH ABS # 0.78 K/uL (1.2-3.4); MONO % 9.6 %; MONO ABS # 0.55 K/uL (0.11-0.59); NEUT % 73.7 %
[2017-07-09 07:08] LABS: CALCIUM 8.3 mg/dl (8.5-10.1); CREATININE 0.65 mg/dl (0.60-1.20); POTASSIUM 3.9 mmol/L (3.5-5.1)
[2017-07-09] MEDS: BUDESONIDE 0.5 MG/2 ML VIAL (PULMICORT) INH SCH ×2 (07:10→19:27)
[2017-07-09] MEDS: ALBUT/IPRATROP 3MG/0.5MG NEB 3 ML VIAL INH SCH ×4 (07:10→19:25)
[2017-07-09] MEDS: POTASSIUM CHLORIDE 10 MEQ TABCR PO SCH ×2 (08:04→19:50)
[2017-07-09] MEDS: METOPROLOL TARTRATE 25 MG TAB PO SCH ×2 (08:04→19:51)
[2017-07-09] MEDS: TOPIRAMATE 50 MG TAB PO SCH (08:05)
[2017-07-09] MEDS: CLOPIDOGREL BISULFATE 75 MG TAB PO SCH (08:05)
[2017-07-09] MEDS: RANITIDINE HCL 150 MG TAB PO SCH ×2 (08:05→19:51)
[2017-07-09] MEDS: APIXABAN 2.5 MG TAB PO SCH ×2 (08:06→19:50)
[2017-07-09] MEDS: PANTOprazole SOD 40 MG TAB PO SCH (08:06)
[2017-07-09] MEDS: OSELTAMIVIR PHOSPHATE SUSP 30 MG/5 ML UDP PO SCH (08:07)
--- NOTE | 2017-07-09 12:38 | Clinical Documentation Query ---
CLINICAL DOCUMENTATION QUERY Dr. ZAMARRIPA, In your clinical opinion is this patient being managed for: (X ) Sepsis/possible sepsis, POA ( ) Not Agree ( ) Other explanation of clinical findings (Please Explain) ( ) Unable to determine (Please Define) ( ) Need to Discuss The medical record reflects the following clinical findings, treatment, and risk factors. Clinical Indicators: 82 yo female presenting with persistent fever, measured at 101 at home. Initial VS 39.3-122-20, 145/71, 97% on RA, POC lactic acid 2.0, glucose 135 Treatment: 2L NSS bolus, tylenol, IV levaquin, IV rocephin, tamiflu, nebs, tele monitoring, blood and urine cx Risk Factors: age, pneumonia/influenza Please clarify and document your clinical opinion in the progress notes and discharge summary. Terms such as "probable", "suspected", "likely", "questionable", "possible", or "still to be ruled out" are acceptable. IF IN AGREEMENT, YOU MUST DOCUMENT ABOVE DIAGNOSTIC STATEMENT IN DAILY PROGRESS NOTES AND DISCHARGE SUMMARY. This document is not part of the patient's record. Thank You, Elizabeth Low, RN [phone]
--- NOTE | 2017-07-09 12:40 | Clinical Documentation Query ---
CLINICAL DOCUMENTATION QUERY Dr. MARCOS, In your clinical opinion is this patient being managed for: ( ) Sepsis/possible sepsis, POA ( x ) Not Agree ( ) Other explanation of clinical findings (Please Explain) ( ) Unable to determine (Please Define) ( ) Need to Discuss The medical record reflects the following clinical findings, treatment, and risk factors. Clinical Indicators: 82 yo female presenting with persistent fever, measured at 101 at home. Initial VS 39.3-122-20, 145/71, 97% on RA, POC lactic acid 2.0, glucose 135 Treatment: 2L NSS bolus, tylenol, IV levaquin, IV rocephin, tamiflu, nebs, tele monitoring, blood and urine cx Risk Factors: age, pneumonia/influenza Please clarify and document your clinical opinion in the progress notes and discharge summary. Terms such as "probable", "suspected", "likely", "questionable", "possible", or "still to be ruled out" are acceptable. IF IN AGREEMENT, YOU MUST DOCUMENT ABOVE DIAGNOSTIC STATEMENT IN DAILY PROGRESS NOTES AND DISCHARGE SUMMARY. This document is not part of the patient's record. Thank You, Elizabeth Low, RN [phone]
--- NOTE | 2017-07-09 13:04 | Family Medicine Progress Note ---
Progress Note Date of Service Jul 09, 2017. Subjective Pt evaluation today including: conversation w/ patient, physical exam, chart review, lab review Pain: denies any discomfort PO Intake: tolerating Voiding: no voiding problems This AM reports improvement in cough (wet but non-productive). Headache has improved. No sob or cp Constitutional: No fever Respiratory: + cough, No sputum, No shortness of breath Cardiovascular: No chest pain Abdomen: No pain, No nausea, No vomiting Female : No dysuria Medications Current Inpatient Medications Medications (Trade) Dose Ordered Sig/Melida Route Start Time Stop Time Status Last Admin Dose Admin Acetaminophen (Tylenol Tab) 650 mg Q4H PRN PO 07/07/17 22:30 08/06/17 22:29 07/08/17 15:34 650 MG Al Hydrox/Mg Hydrox/Simethicone (Maalox Max Susp) 15 ml Q4H PRN PO 07/07/17 22:30 08/06/17 22:29 Magnesium Hydroxide (Milk Of Magnesia Susp) 30 ml Q12H PRN PO 07/07/17 22:30 08/06/17 22:29 Ondansetron HCl (Zofran Inj) 4 mg Q6H PRN IV 07/07/17 22:30 08/06/17 22:29 Polyethylene (Miralax Powder Packet) 17 gm DAILY PRN PO 07/07/17 22:30 08/06/17 22:29 Cetirizine HCl (zyrTEC TAB) 5 mg DAILY PRN PO 07/07/17 22:30 08/06/17 22:29 Clopidogrel Bisulfate (plAVix TAB) 75 mg DAILY PO 07/08/17 09:00 08/07/17 08:59 07/09/17 08:05 75 MG Ranitidine HCl (zANTac TAB) 150 mg BID PO 07/08/17 09:00 08/07/17 08:59 07/09/17 08:05 150 MG Sumatriptan Succinate (Imitrex Tab) 100 mg PRN PRN PO 07/07/17 22:30 08/06/17 22:29 07/08/17 15:58 100 MG Topiramate (Topamax Tab) 125 mg DAILY PO 07/08/17 09:00 08/07/17 08:59 07/09/17 08:05 125 MG Pantoprazole Sodium (Protonix Tab) 40 mg DAILY PO 07/08/17 09:00 08/07/17 08:59 07/09/17 08:06 40 MG Guaifenesin (Organidin Nr Tab) 200 mg Q4H PO 07/08/17 04:00 08/07/17 03:59 07/09/17 11:48 200 MG Albuterol/ Ipratropium (Duoneb) 3 ml QIDR INH 07/08/17 08:00 08/07/17 07:59 07/09/17 15:01 3 ML Budesonide (Pulmicort Respules 0.5MG/ 2ML Neb Soln) 0.5 mg BIDR INH 07/08/17 08:00 08/07/17 07:59 07/09/17 07:10 0.5 MG Metoprolol Tartrate (Lopressor Tab) 12.5 mg BID PO 07/08/17 21:00 08/07/17 20:59 07/09/17 08:04 12.5 MG Apixaban (Eliquis Tab) 5 mg BID PO 07/08/17 21:00 08/07/17 20:59 07/09/17 08:06 5 MG Potassium Chloride (Klor-Con M10) 10 meq BID PO 07/08/17 21:00 08/07/17 20:59 07/09/17 08:04 10 MEQ Levofloxacin 750 mg/Prmx 150 ml @ 100 mls/hr Q24H IV 07/08/17 20:00 07/15/17 19:59 07/08/17 19:47 100 MLS/HR Oseltamivir Phosphate (Tamiflu Cap) 75 mg BID PO 07/09/17 21:00 07/13/17 23:59 Objective Vital Signs Date Time Temp Pulse Resp B/P (MAP) Pulse Ox O2 Delivery O2 Flow Rate FiO2 07/09/17 15:01 78 16 97 Room Air 07/09/17 12:00 Room Air 07/09/17 11:56 37.1 61 19 107/69 (82) 93 Room Air 07/09/17 11:24 63 16 94 Room Air 07/09/17 08:00 Room Air 07/09/17 07:47 37.2 97 20 129/72 (91) 94 Room Air 4/24/18 07:17 83 16 94 Room Air 07/09/17 04:00 37.3 74 18 130/69 (89) 96 Room Air 07/09/17 04:00 Room Air 07/08/17 23:59 Room Air 07/08/17 23:16 37.2 84 18 105/66 (79) 95 Room Air 07/08/17 20:00 95 Room Air 07/08/17 19:25 36.8 99 16 108/64 (79) 95 Room Air 07/08/17 19:13 70 16 96 Room Air 07/08/17 16:00 Room Air Physical Exam General Appearance: no apparent distress Eyes: normal inspection ENT: normal ENT inspection Neck: supple Respiratory/Chest: + rhonchi (occasional ), + wheezing (diffuse in posterior lung delacruz - end expiratory), + pertinent finding (equal breath sounds) Cardiovascular: + tachycardia, + pertinent finding (regular rhythm) Abdomen: normal bowel sounds, non tender, soft Extremities: non-tender, no pedal edema Neurologic/Psychiatric: alert, oriented x 3 Skin: warm/dry Laboratory Results 07/09/17 05:53 Red Blood Count 3.55, Mean Corpuscular Volume 93.5, Mean Corpuscular Hemoglobin 30.7, Mean Corpuscular Hemoglobin Concent 32.8, Mean Platelet Volume 10.3, Neutrophils (%) (Auto) 73.7, Lymphocytes (%) (Auto) 13.7, Monocytes (%) (Auto) 9.6, Eosinophils (%) (Auto) 2.3, Basophils (%) (Auto) 0.5, Neutrophils # (Auto) 4.20, Lymphocytes # (Auto) 0.78, Monocytes # (Auto) 0.55, Eosinophils # (Auto) 0.13, Basophils # (Auto) 0.03 07/09/17 05:53 Test 07/09/17 05:53 White Blood Count 5.70 K/uL (4.8-10.8) Red Blood Count 3.55 M/uL (4.2-5.4) Hemoglobin 10.9 g/dL (12.0-16.0) Hematocrit 33.2 % (37-47) Mean Corpuscular Volume 93.5 fL (80-100) Mean Corpuscular Hemoglobin 30.7 pg (25-34) Mean Corpuscular Hemoglobin Concent 32.8 g/dl (32-36) Platelet Count 176 K/uL (130-400) Mean Platelet Volume 10.3 fL (7.4-10.4) Neutrophils (%) (Auto) 73.7 % Lymphocytes (%) (Auto) 13.7 % Monocytes (%) (Auto) 9.6 % Eosinophils (%) (Auto) 2.3 % Basophils (%) (Auto) 0.5 % Neutrophils # (Auto) 4.20 K/uL (1.4-6.5) Lymphocytes # (Auto) 0.78 K/uL (1.2-3.4) Monocytes # (Auto) 0.55 K/uL (0.11-0.59) Eosinophils # (Auto) 0.13 K/uL (0-0.5) Basophils # (Auto) 0.03 K/uL (0-0.2) RDW Standard Deviation 52.2 fL (36.4-46.3) RDW Coefficient of Variation 15.3 % (11.5-14.5) Immature Granulocyte % (Auto) 0.2 % Immature Granulocyte # (Auto) 0.01 K/uL (0.00-0.02) Anion Gap 6.0 mmol/L (3-11) Est Creatinine Clear Calc Drug Dose 64.8 ml/min Estimated GFR () 94.5 Estimated GFR (Non- 81.5 BUN/Creatinine Ratio 16.5 (10-20) Calcium Level 8.3 mg/dl (8.5-10.1) Magnesium Level 2.3 mg/dl (1.8-2.4) Assessment and Plan 82 yoF with hx of asthma, GERD and migraine headaches admitted for influenza B and pneumonia. Found to have new-onset Afib and initiated on rate control with anticoagulation as well during hospitalization. Influenza -Tamiflu 30mg BID - day 2 -Received influenza vaccine before illness Pneumonia: LLL infiltrate in setting of Influenza -febrile initially, now afebrile; no WBC elevation -normal O2 saturation, no distress -CXR . Small superimposed parenchymal infiltrate left base -UCx negative and BCx x 2 NGTD -Transitioned from Cefriaxone (no dose administered) to Levaquin 750mg daily day 2 -Pulmicort Respules 0.5 mg inhaled twice daily -Guaifenesin extended release 600 mg by mouth twice a day -Duonebs every 4 hours while awake and every 2 hours when necessary Afib new onset -ECHO: EF 60-65%; mild concentric LVH; Grade 1 diastolic dysfunction; biprosthetic aortic valve with mod.stenosis; mild mitral calcification/regurg -Cards consulted: -Continue eliquis 5mg PO BID for CHADsVASc score of 5 -Continue lopressor 12.5mg BID GERD -Continue Protonix, Ranitidine Migraine hx: -Continue prn imitrex, topamax DVT PPX - Eliquis Code: Full, no mechanical ventilation Resident Physician Supervision Note: I interviewed and examined the patient. Discussed with Dr. Harrison and agree with findings and plan as documented in the note. Any exceptions or clarifications are listed here: The patient feels better compared to yesterday. PLAN 1) Encourage ambulation and monitor HR to make sure she remains with good rate control. 2) PT/OT to see if safe to return home. 3) Continue current antiviral and antibiotics. Documented By: Titi Elder Resident Involvement: Resident Care Provided Care Provided: Adult Hospital Medicine
[2017-07-09] MEDS: OSELTAMIVIR PHOSPHATE 75 MG CAP PO SCH (19:50)
[2017-07-09] MEDS: LEVOFLOXACIN / D5W 750 MG in PREMIXED IN D5W 150 ML IV SCH (19:51)
[2017-07-10] VITALS (9 sets, daily range): BP systolic 112–119; BP diastolic 71–81; PULSE 73–94; TEMP 36.5–36.9; O2SAT 95–96
[2017-07-10] MEDS: GUAIFENESIN 200 MG TAB PO SCH ×3 (03:34→12:43)
[2017-07-10 06:54] LABS: HEMATOCRIT 34.7 % (37-47); HEMOGLOBIN 11.3 g/dL (12.0-16.0); MEAN CELL VOLUME 93.3 fL (80-100); MEAN CORPUSCULAR HEMOGLOBIN 30.4 pg (25-34); MEAN CORPUSCULAR HGB CONC 32.6 g/dl (32-36); MEAN PLATELET VOLUME 9.8 fL (7.4-10.4); PLATELET COUNT 196 K/uL (130-400); RED CELL DISTRIBUTION WIDTH CV 15.1 % (11.5-14.5); RED CELL DISTRIBUTION WIDTH SD 52.2 fL (36.4-46.3); WHITE BLOOD COUNT 4.32 K/uL (4.8-10.8)
[2017-07-10] MEDS: ALBUT/IPRATROP 3MG/0.5MG NEB 3 ML VIAL INH SCH ×2 (07:04→11:18)
[2017-07-10] MEDS: BUDESONIDE 0.5 MG/2 ML VIAL (PULMICORT) INH SCH (07:04)
[2017-07-10 07:15] LABS: BASO % 0.7 %; BASO ABS # 0.03 K/uL (0-0.2); EOS % 7.2 %; EOS ABS # 0.31 K/uL (0-0.5); IG# 0.01 K/uL (0.00-0.02); LYMPH % 17.4 %; LYMPH ABS # 0.75 K/uL (1.2-3.4); MONO % 12.3 %; MONO ABS # 0.53 K/uL (0.11-0.59); NEUT % 62.2 %; NEUT ABS # 2.69 K/uL (1.4-6.5)
[2017-07-10 07:30] LABS: CALCIUM 8.2 mg/dl (8.5-10.1); CREATININE 0.81 mg/dl (0.60-1.20)
[2017-07-10] MEDS: TOPIRAMATE 50 MG TAB PO SCH (09:28)
[2017-07-10] MEDS: CLOPIDOGREL BISULFATE 75 MG TAB PO SCH (09:29)
[2017-07-10] MEDS: APIXABAN 2.5 MG TAB PO SCH (09:29)
[2017-07-10] MEDS: PANTOprazole SOD 40 MG TAB PO SCH (09:29)
[2017-07-10] MEDS: POTASSIUM CHLORIDE 10 MEQ TABCR PO SCH (09:29)
[2017-07-10] MEDS: RANITIDINE HCL 150 MG TAB PO SCH (09:29)
[2017-07-10] MEDS: METOPROLOL TARTRATE 25 MG TAB PO SCH (09:29)
[2017-07-10] MEDS: OSELTAMIVIR PHOSPHATE 75 MG CAP PO SCH (09:29)
[2017-07-10] MEDS ORDERED: LVQ750 PO (13:12)
[2017-07-10] MEDS ORDERED: TMF75 PO (13:12)
[2017-07-10] MEDS ORDERED: LPR25 PO (13:12)
[2017-07-10] MEDS ORDERED: ELQ25 PO (13:12)
[2017-07-10] MEDS ORDERED: OSELTAMIVIR PHOSPHATE 75 MG CAP PO STA (13:18)
--- NOTE | 2017-07-10 13:18 | Discharge Instructions ---
Discharge Instructions Date of Service Jul 10, 2017. Admission Reason for Admission: Pneumonia Discharge Discharge Diagnosis / Problem: Influenza and Pneumonia Discharge Goals Goal(s): Improve function, Therapeutic intervention Activity Recommendations Activity Limitations: resume your previous activity Lifting Limitations: none Exercise/Sports Limitations: none Shower/Bathe: no limitations . Instructions / Follow-Up Instructions / Follow-Up You came to the ER for respiratory difficulties. You were diagnosed with a combination of both Influenza B and Pneumonia. You were started on antibiotics as well as Tamiflu to treat the flu. You were also noted to have an abnormal heart rhythm called "atrial fibrillation ". This condition can increase the risk of clots in the heart which can lead to stroke. Treating you with a blood thinner will reduce this risk. We will also give you a medication to help keep your heart rate slow and prevent the atrial fibrillation from occurring. When you go home please do the following For your Influenza/Pneumonia: - Continue taking Levofloxacin for an additional 6 days. Start taking this tomorrow. - For the Influenza, please take Tamiflu for an additional 3 days. Take this twice daily. Start taking this tomorrow. For your atrial fibrillation: - Please take Eliquis twice daily WITH meals. This is the blood thinner. Be cautious and watch for signs of increased bleeding and call your doctor immediately if this occurs. - Please take Metoprolol twice daily. This keeps your heart from going into the abnormal rhythm. Watch for signs of lightheadedness and dizziness with this medication and call your doctor if you notice this - Please attend your scheduled appointment with Dr. White in July. All the new prescriptions have been sent directly to your pharmacy. If your symptoms fail to improve, acutely worsen, please seek medical attention immediately by either calling your primary care provider or going to your nearest emergency department. Otherwise, please see your primary care provider within 1 week to ensure that your symptoms continue to improve. It was a pleasure to be involved in your care and we wish you all the best. Current Hospital Diet Patient's current hospital diet: Regular Diet Discharge Diet Recommended Diet: AHA Diet (Heart Healthy) Pending Studies Studies pending at discharge: no Medical Emergencies . Who to Call and When: Medical Emergencies: If at any time you feel your situation is an emergency, please call 911 immediately. . Non-Emergent Contact Non-Emergency issues call your: Primary Care Provider Call Non-Emergent contact if: you have any medication questions . . "Provider Documentation" section prepared by Pravin Tovar. .
--- NOTE | 2017-07-10 17:09 | Discharge Summary ---
Discharge Summary Date of Service Jul 10, 2017. Discharge Summary Admission Date: Jul 07, 2017 at 22:56 Discharge Date: Jul 10, 2017 Discharge Disposition: Home Principal Diagnosis: Pneumonia in the setting of Influenza B infection Problems/Secondary Diagnoses: Influenza B Afib new onset GERD Migraine history Immunizations: Have You Had Influenza Vaccine: Yes Influenza Vaccine Date: Dec 27, 2008 History of Tetanus Vaccine?: Unknown History of Pneumococcal: Unknown History of Hepatitis B Vaccine: Unknown Procedures: ECHO * -- Conclusions -- * There is mild concentric left ventricular hypertrophy. * Left ventricular systolic function is normal. * Grade I diastolic dysfunction, (abnormal relaxation pattern). * Borderline left atrial enlargement. 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 * Moderate valvular aortic stenosis. * There is mild mitral annular calcification. * There is mild mitral regurgitation. * Right ventricular systolic pressure is normal. * Compared to an echocardiogram from 08/2014, the aortic valve gradients are higher CHEST 2 VIEWS ROUTINE CLINICAL HISTORY: Evaluate Fever/Sepsis COMPARISON STUDY: 08/16/2014 FINDINGS: Chronic pleural and parenchymal change medial right cardiophrenic angle. Subtle increase in density left lung base with poor visibility left hemidiaphragm. A superimposed infiltrate is felt to be present. Mid and upper lungs are considered clear. IMPRESSION: 1. Chronic bibasilar change. 2. Small superimposed parenchymal infiltrate left base. Consultations: Cardiology - Sharee Biswas Medication Reconciliation New Medications: Apixaban (Eliquis) 2.5 Mg Tab 5 MG PO BID for 30 Days, #120 TAB 1 Refill Levofloxacin (Levofloxacin) 750 Mg Tab 750 MG PO DAILY for 6 Days, #6 TAB Metoprolol Tartrate (Lopressor) 25 Mg Tab 12.5 MG PO BID for 30 Days, #30 TAB 1 Refill Oseltamivir Phosphate (Tamiflu) 75 Mg Cap 75 MG PO BID for 2 Days, #4 CAP Continued Medications: Albuterol (Ventolin) Inh 2 PUFFS INH QID PRN Artificial Tear Ointment (Refresh P.m.) 1 Oin Oin 1 APPLN OPB UD Celecoxib (Celebrex) 100 Mg Cap 1 CAP PO BID Cetirizine Hcl (Zyrtec Allergy) 10 Mg Tab 5 MG PO DAILY PRN for Allergic Reaction Cholecalciferol (Vitamin D3) 1,000 Unit Tab 1000 UNITS PO DAILY Clopidogrel (Plavix) 75 Mg Tab 75 MG PO DAILY Fluticasone Prop/Salmeterol (Advair Diskus 250/50 60 Dose) 1 Ea Aerp 1 PUFFS INH BID Krill Oil (Krill Oil) 1 Cap Cap 1 CAP PO DAILY Omeprazole (Omeprazole) 20 Mg Tab 20 MG PO DAILY Ranitidine (Zantac) 150 Mg Tab 150 MG PO BID Sumatriptan Succinate (Imitrex) 100 Mg Tab 100 MG PO PRN, TAB TAKE DIRECTED FOR MIGRAINE Topiramate (Topamax) 50 Mg Tab 125 MG PO DAILY, TAB [Natural Tears] () OPB PRN Discontinued Medications: Cefdinir (Omnicef) 300 Mg Cap 300 MG PO Q12H, #14 CAP Oseltamivir (Tamiflu) 75 Mg Cap 75 MG PO BID, #10 CAP Discharge Exam cough improved. Had BM as well Review of Systems: Constitutional: No fever Respiratory: + cough, No sputum, No shortness of breath Cardiovascular: No chest pain Abdomen: No pain, No nausea, No vomiting, No diarrhea, No constipation Genitourinary - Female: No dysuria Physical Exam: General Appearance: no apparent distress Eyes: normal inspection ENT: normal ENT inspection Neck: supple Respiratory/Chest: + rhonchi (occasional - improves with coughing), + wheezing (occasional), + pertinent finding (coarse breath sounds) Cardiovascular: regular rate, rhythm, no murmur Abdomen / GI: normal bowel sounds, non tender, soft Extremities: no calf tenderness, no pedal edema Neurologic/Psychiatric: alert Hospital Course 82 yoF with hx of asthma, GERD and migraine headaches admitted for influenza B and pneumonia. Found to have new-onset Afib and initiated on rate control with anticoagulation as well during hospitalization. Influenza -Received Tamiflu 30mg BID x 3 days (discharged with remaining 2 day course) -Received influenza vaccine before illness Pneumonia: LLL infiltrate in setting of Influenza Sepsis, secondary to above -febrile initially, now afebrile; no WBC elevation -normal O2 saturation, no distress -CXR . Small superimposed parenchymal infiltrate left base -UCx negative and BCx x 2 NGTD -Transitioned from Cefriaxone (no dose administered) to Levaquin 750mg daily received for 3 days (discharged with additional 6 days dosage) -Received Pulmicort Respules 0.5 mg inhaled twice daily -Received Guaifenesin extended release 600 mg by mouth twice a day -Received Duonebs every 4 hours while awake and every 2 hours when necessary -Continued home albuterol on DC for asthma as needed Afib new onset -ECHO: EF 60-65%; mild concentric LVH; Grade 1 diastolic dysfunction; biprosthetic aortic valve with mod.stenosis; mild mitral calcification/regurg -Cards consulted: -Received and discharged with eliquis 5mg PO BID for CHADsVASc score of 5 -Received and discharged with lopressor 12.5mg BID GERD -Continued home Protonix, Ranitidine Migraine hx: -Continue home prn imitrex, and topamax DVT PPX: Eliquis Code: Full, no mechanical ventilation Resident Physician Supervision Note: I interviewed and examined the patient. Discussed with Dr. Harrison and agree with findings and plan as documented in the note. The patient denies dyspnea por chest pain. Minimal cough. The weakness she noted upon admission has improved. She will follow up with PCP in about 1 week; she has a cardiology appointment in mid to late July already scheduled. Documented By: Titi Elder Total Time Spent: Less than 30 minutes This includes examination of the patient, discharge planning, medication reconciliation, and communication with other providers. Discharge Instructions Please refer to the electronic Patient Visit Report (Discharge Instructions) for additional information. Additional Copies To Helen Moreno M.D.
[2017-07-10] MEDS ORDERED: LEVOFLOXACIN 750 MG TAB PO SCH ×2 (18:00)
== END 2017-07-10 15:00 | disposition home or self-care (01) | DRG 195 ==
LOC: C.EDB 16:36 → C.2T 22:56 → UNDOADMIN 22:56 → EDBEDREQ 23:04 → ENRESERV 23:19 → C.2T 23:56
PROVIDERS: ADMIT Hospitalist; ATTEND Family Medicine
DX: J10.00 Influenza due to other identified influenza virus with unspecified type of pneumonia (principal); I48.0 Paroxysmal atrial fibrillation; I95.9 Hypotension, unspecified; E87.6 Hypokalemia; K21.9 Gastro-esophageal reflux disease without esophagitis; G43.909 Migraine, unspecified, not intractable, without status migrainosus; J45.909 Unspecified asthma, uncomplicated; I11.9 Hypertensive heart disease without heart failure; Z51.81 Encounter for therapeutic drug level monitoring; Z79.899 Other long term (current) drug therapy; Z79.02 Long term (current) use of antithrombotics/antiplatelets; Z95.3 Presence of xenogenic heart valve; Z88.0 Allergy status to penicillin; Z83.3 Family history of diabetes mellitus; Z82.49 Family history of ischemic heart disease and other diseases of the circulatory system

== ENCOUNTER 2017-08-05 11:40 | Inpatient (IN) | payer BC, OTHER ==
[~2017-08-05] VITALS: Ht 162.6 cm; Wt 72.2 kg
[~2017-08-05 11:40] MED LIST changes: +ADVIN25/60 INH; -ADVIN25050 INH; +ARTIOIN27 OPB; +CHOL1000 PO; +CLB100 PO; +ELQ25 PO; -FLUT0.0529 NAE; -GABA100C13 PO; +KRIL1000 PO; +LPR25 PO; +LVQ750 PO; +OMEP20TA PO; +SUMA100T16 PO; -SUMA50TA15 PO; +TMF75 PO; +TOPI50TA16 PO; -[UNRECOGNIZED DRUG - OTHER] OPB
[2017-08-05] MEDS ORDERED: SODIUM CHLORIDE 0.9% 500ML 500 ML IV STA (12:07)
[2017-08-05] MEDS ORDERED: OPTIRAY 320 IV PRN (12:15)
[2017-08-05 12:22] LABS: BASO % 1.2 %; BASO ABS # 0.07 K/uL (0-0.2); EOS % 9.5 %; EOS ABS # 0.56 K/uL (0-0.5); HEMOGLOBIN 12.6 g/dL (12.0-16.0); IG# 0.01 K/uL (0.00-0.02); LYMPH ABS # 1.06 K/uL (1.2-3.4); MEAN CELL VOLUME 92.7 fL (80-100); MEAN CORPUSCULAR HEMOGLOBIN 30.7 pg (25-34); MEAN CORPUSCULAR HGB CONC 33.2 g/dl (32-36); MEAN PLATELET VOLUME 9.7 fL (7.4-10.4); MONO % 6.1 %; MONO ABS # 0.36 K/uL (0.11-0.59); NEUT ABS # 3.82 K/uL (1.4-6.5); PLATELET COUNT 196 K/uL (130-400); RED CELL DISTRIBUTION WIDTH SD 51.1 fL (36.4-46.3); WHITE BLOOD COUNT 5.88 K/uL (4.8-10.8)
[2017-08-05 12:28] LABS: ISTAT CREATININE 0.7 mg/dl (0.6-1.3); ISTAT IONIZED CALCIUM 1.14 mmol/l (1.12-1.32); ISTAT POTASSIUM 3.8 mEq/L (3.3-5.0)
[2017-08-05 12:36] LABS: PTT PATIENT 32.4 SECONDS (21.0-31.0)
[2017-08-05 12:44] LABS: BLOOD UREA NITROGEN 14 mg/dl (7-18); CARBON DIOXIDE 25 mmol/L (21-32); CKMB 2.6 ng/ml (0.5-3.6); CREATININE 0.72 mg/dl (0.60-1.20); GLUCOSE 102 mg/dl (70-99); SODIUM 141 mmol/L (136-145)
--- NOTE | 2017-08-05 12:57 | EMERGENCY ROOM VISIT NOTE ---
History Report prepared by Jeffry: Eliezer De Leon Under the Supervision of: Dr. Jose Wright M.D. First contact with patient: 11:49 Chief Complaint: NEURO SYMPTOMS Stated Complaint: ARM AND LEG NUMBNESS History of Present Illness The patient is an 82 year old female who presents to the Emergency Room with complaints of intermittent left hand, left arm, left knee, and left lip numbness for the past 4 days. The patient states that the numbness lasts for around a minute or two. She denies any weakness or trouble speaking, and she does not lose any functions. The patient states that she had an MRI, and she was found to have mini strokes 10 years ago. She has a history of neuropathy and migraine headaches, and she states that she does not get numbness with her migraines. She denies any current headache. The patient states that after the numbness episodes sometimes she gets nauseous and her head does not feel right. The patient recently had the flu, and she was in the hospital for three days. 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 She denies any fever, chills, cough, and congestion. Source of History: patient Onset: 4 days Position: lip (left), arm (left), hand (left), knee (left) Quality: numbness Timing: intermittent Associated Symptoms: + nausea, No fevers, No chills, No headache, No cough, No weakness Review of Systems See HPI for pertinent positives and negatives. A total of ten systems were reviewed and were otherwise negative. Past Medical & Surgical Medical Problems: (1) Pneumonia (2) TIA (transient ischemic attack) Family History Diabetes mellitus Heart disease Hypertension Lung disease Social History Smoking Status: Never Smoker Alcohol Use: none Drug Use: none Marital Status: Housing Status: lives alone Occupation Status: unemployed Current/Historical Medications Scheduled Apixaban (Eliquis), 5 MG PO BID Artificial Tear Ointment (Refresh P.m.), 1 APPLN OPB UD Celecoxib (Celebrex), 1 CAP PO BID Cholecalciferol (Vitamin D3), 1,000 UNITS PO DAILY Clopidogrel (Plavix), 75 MG PO DAILY Fluticasone Prop/Salmeterol (Advair Diskus 250/50 60 Dose), 1 PUFFS INH BID Krill Oil (Krill Oil), 1 CAP PO DAILY Metoprolol Tartrate (Lopressor), 12.5 MG PO BID Omeprazole (Omeprazole), 20 MG PO DAILY Ranitidine (Zantac), 150 MG PO BID Sumatriptan Succinate (Imitrex), 100 MG PO PRN Topiramate (Topamax), 125 MG PO DAILY [Natural Tears], OPB PRN Scheduled PRN Cetirizine Hcl (Zyrtec Allergy), 5 MG PO DAILY PRN for Allergic Reaction Allergies Coded Allergies: Penicillins (Verified Allergy, Mild, swelling, 08/05/17) Physical Exam Vital Signs Date Time Temp Pulse Resp B/P (MAP) Pulse Ox O2 Delivery O2 Flow Rate FiO2 08/05/17 13:07 60 18 172/77 98 Room Air 08/05/17 12:15 60 08/05/17 12:06 62 18 172/75 Room Air 08/05/17 12:05 Room Air 08/05/17 11:59 36.9 67 20 191/96 97 Room Air Physical Exam GENERAL: Awake, alert, fatigued-appearing, in no distress HENT: Normocephalic, atraumatic. Dry mucous membranes otherwise oropharynx unremarkable. EYES: Normal conjunctiva. Sclera non-icteric. NECK: Supple. No nuchal rigidity. FROM. No JVD. RESPIRATORY: Clear to auscultation. CARDIAC: Regular rate, normal rhythm. Extremities warm and well perfused. Pulses equal. ABDOMEN: Soft, non-distended. No tenderness to palpation. No rebound or guarding. No masses. RECTAL: Deferred. MUSCULOSKELETAL: Chest examination reveals no tenderness. The back is symmetrical on inspection without obvious abnormality. There is no CVA tenderness to palpation. No joint edema. LOWER EXTREMITIES: Calves are equal size bilaterally and non-tender. No edema. No discoloration. NEURO: Normal sensorium. No sensory or motor deficits noted. 5/5 strength and SILT in all 4 extremities. Normal cerebellar function with [id number], alternating palms, [id number]-[id number]. SKIN: No rash or jaundice noted. Medical Decision & Procedures ER Provider Diagnostic Interpretation: Radiology results as stated below per my review and radiologist interpretation: ADDENDUM The corrected technique should read as follows: TECHNIQUE: Initially, multidetector CT imaging of the head was performed without the use of intravenous contrast. Subsequently, multidetector CT angiography of the head was performed after the administration of intravenous contrast. 3-D volumetric and/or maximum intensity projection (MIP) images were subsequently reconstructed for review. IV contrast: 94 mL of Optiray 320. A dose lowering technique was used consistent with the principles of ALARA (as low as reasonably achievable). Electronically signed by: Teddy Barraza M.D. 08/05/2017 2:03 PM Dictated Date/Time: 08/05/2017 2:01 PM ORIGINAL REPORT HEAD ANGIO WITH CONTRAST, HEAD WITHOUT CONTRAST (CT) CLINICAL HISTORY: 82 years-old Female presenting with stroke, arm and leg numbness. TECHNIQUE: Multidetector CT angiography of the head was performed after the administration of intravenous contrast. 3-D volumetric and/or maximum intensity projection (MIP) images were subsequently reconstructed for review. IV contrast: 94 mL of Optiray 320. A dose lowering technique was used consistent with the principles of ALARA (as low as reasonably achievable). COMPARISON: Brain MR from 2013. CT DOSE (mGy.cm): The estimated cumulative dose is 1133.02 mGy.cm. FINDINGS: [employer] topogram: Right craniotomy. Median sternotomy wires. NONCONTRAST CT HEAD: Proportional ventricular and sulcal prominence, likely age-related parenchymal volume loss. Periventricular and subcortical white matter hypoattenuation, nonspecific but likely indicative of chronic small vessel ischemic change. Limited focus of encephalomalacia at the anterior most right temporal lobe is unchanged from prior and likely postsurgical. No mass effect or midline shift. No hemorrhage or acute territorial infarct. No extra-axial fluid collection. Paranasal sinuses and mastoid air cells clear. Postsurgical changes of right pterional craniotomy. Intracranial atherosclerosis noted. CTA HEAD: Anterior circulation: Atherosclerosis of the internal carotid arteries without significant narrowing. Intracranial portions of the internal carotid arteries patent to the level of the termini. Anterior and middle cerebral arteries patent. Anterior communicating artery patent. Posterior circulation: Codominant vertebral arteries. Intradural portions of the vertebral arteries patent. Posterior inferior cerebellar arteries patent. Basilar artery patent. Anterior inferior cerebellar arteries poorly visualized. Superior cerebellar and posterior cerebral arteries patent. Posterior communicating arteries hypoplastic or aplastic. Dural venous sinuses: Patent. IMPRESSION: 1. No acute intracranial pathology. 2. 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 3. No evidence of aneurysm, focal vessel occlusion, or significant stenosis of the intracranial arteries. Electronically signed by: Teddy Barraza M.D. 08/05/2017 1:17 PM Dictated Date/Time: 08/05/2017 1:09 PM NECK CTA HISTORY: Stroke symptoms. Right arm and leg numbness. TECHNIQUE: Multiaxial CT images of the neck were performed following the intravenous administration of contrast to evaluate the major cervical vessels. Maximum intensity projection images were also obtained. All measurements were calculated based on NASCET criteria. A dose lowering technique was utilized adhering to the principles of ALARA. COMPARISON STUDY: Carotid Doppler 02/11/2013. FINDINGS: The aortic arch and proximal great vessels are widely patent. Mild calcified plaque within the proximal left subclavian artery. High-grade stenosis at the origin of the left vertebral artery due to the extensive calcified plaque. Mild calcified plaque within the bilateral carotid bifurcations. The bilateral common carotid and internal carotid arteries are widely patent. The right vertebral artery is widely patent. Moderate to severe scattered calcified plaque within the left vertebral artery. This results in a long segment of mild narrowing within the mid left vertebral artery. Focal area of 50% stenosis within the distal left vertebral artery at the C2 level and at the C1 level. There are poststernotomy changes. No pneumothorax. Degenerative changes within the cervical spine. No fractures. The internal jugular veins are patent. IMPRESSION: 1. No significant stenosis or occlusion within the bilateral carotid arteries or right vertebral artery. 2. Multifocal areas of mild to moderate stenosis within the left vertebral artery due to the calcified plaque. There is also a focal area of high-grade stenosis at the takeoff of the left vertebral artery. Electronically signed by: Jorge Escobar M.D. 08/05/2017 1:23 PM Dictated Date/Time: 08/05/2017 1:17 PM ADDENDUM The corrected technique should read as follows: TECHNIQUE: Initially, multidetector CT imaging of the head was performed without the use of intravenous contrast. Subsequently, multidetector CT angiography of the head was performed after the administration of intravenous contrast. 3-D volumetric and/or maximum intensity projection (MIP) images were subsequently reconstructed for review. IV contrast: 94 mL of Optiray 320. A dose lowering technique was used consistent with the principles of ALARA (as low as reasonably achievable). Electronically signed by: Teddy Barraza M.D. 08/05/2017 2:03 PM Dictated Date/Time: 08/05/2017 2:01 PM ORIGINAL REPORT HEAD ANGIO WITH CONTRAST, HEAD WITHOUT CONTRAST (CT) CLINICAL HISTORY: 82 years-old Female presenting with stroke, arm and leg numbness. TECHNIQUE: Multidetector CT angiography of the head was performed after the administration of intravenous contrast. 3-D volumetric and/or maximum intensity projection (MIP) images were subsequently reconstructed for review. IV contrast: 94 mL of Optiray 320. A dose lowering technique was used consistent with the principles of ALARA (as low as reasonably achievable). COMPARISON: Brain MR from 2013. CT DOSE (mGy.cm): The estimated cumulative dose is 1133.02 mGy.cm. FINDINGS: [employer] topogram: Right craniotomy. Median sternotomy wires. NONCONTRAST CT HEAD: Proportional ventricular and sulcal prominence, likely age-related parenchymal volume loss. Periventricular and subcortical white matter hypoattenuation, nonspecific but likely indicative of chronic small vessel ischemic change. Limited focus of encephalomalacia at the anterior most right temporal lobe is unchanged from prior and likely postsurgical. No mass effect or midline shift. No hemorrhage or acute territorial infarct. No extra-axial fluid collection. Paranasal sinuses and mastoid air cells clear. Postsurgical changes of right pterional craniotomy. Intracranial atherosclerosis noted. CTA HEAD: Anterior circulation: Atherosclerosis of the internal carotid arteries without significant narrowing. Intracranial portions of the internal carotid arteries patent to the level of the termini. Anterior and middle cerebral arteries patent. Anterior communicating artery patent. Posterior circulation: Codominant vertebral arteries. Intradural portions of the vertebral arteries patent. Posterior inferior cerebellar arteries patent. Basilar artery patent. Anterior inferior cerebellar arteries poorly visualized. Superior cerebellar and posterior cerebral arteries patent. Posterior communicating arteries hypoplastic or aplastic. Dural venous sinuses: Patent. IMPRESSION: 1. No acute intracranial pathology. 2. 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 3. No evidence of aneurysm, focal vessel occlusion, or significant stenosis of the intracranial arteries. Electronically signed by: Teddy Barraza M.D. 08/05/2017 1:17 PM Dictated Date/Time: 08/05/2017 1:09 PM SINGLE VIEW CHEST CLINICAL HISTORY: Left arm numbness. FINDINGS: An AP, portable, upright chest radiograph is compared to study dated 07/07/2017. The examination is degraded by portable technique and patient rotation. The patient is status post midline sternotomy and aortic valve surgery. The heart is enlarged and there is atherosclerotic calcification of the thoracic aorta. The pulmonary vasculature is noncongested. Chronic interstitial thickening is similar to previous. No airspace consolidation or large pleural effusion is identified. There is mild bibasilar atelectasis. No pneumothorax is seen. The bony thorax is grossly intact. IMPRESSION: Cardiomegaly with no acute cardiopulmonary abnormality. Electronically signed by: Damian Russo M.D. 08/05/2017 2:08 PM Dictated Date/Time: 08/05/2017 2:07 PM Laboratory Results 08/05/17 11:16 Red Blood Count 4.10, Mean Corpuscular Volume 92.7, Mean Corpuscular Hemoglobin 30.7, Mean Corpuscular Hemoglobin Concent 33.2, Mean Platelet Volume 9.7, Neutrophils (%) (Auto) 65.0, Lymphocytes (%) (Auto) 18.0, Monocytes (%) (Auto) 6.1, Eosinophils (%) (Auto) 9.5, Basophils (%) (Auto) 1.2, Neutrophils # (Auto) 3.82, Lymphocytes # (Auto) 1.06, Monocytes # (Auto) 0.36, Eosinophils # (Auto) 0.56, Basophils # (Auto) 0.07 08/05/17 11:16 Test 08/05/17 11:16 08/05/17 12:15 08/05/17 12:17 08/05/17 12:39 White Blood Count 5.88 K/uL (4.8-10.8) Red Blood Count 4.10 M/uL (4.2-5.4) Hemoglobin 12.6 g/dL (12.0-16.0) Hematocrit 38.0 % (37-47) Mean Corpuscular Volume 92.7 fL (80-100) Mean Corpuscular Hemoglobin 30.7 pg (25-34) Mean Corpuscular Hemoglobin Concent 33.2 g/dl (32-36) Platelet Count 196 K/uL (130-400) Mean Platelet Volume 9.7 fL (7.4-10.4) Neutrophils (%) (Auto) 65.0 % Lymphocytes (%) (Auto) 18.0 % Monocytes (%) (Auto) 6.1 % Eosinophils (%) (Auto) 9.5 % Basophils (%) (Auto) 1.2 % Neutrophils # (Auto) 3.82 K/uL (1.4-6.5) Lymphocytes # (Auto) 1.06 K/uL (1.2-3.4) Monocytes # (Auto) 0.36 K/uL (0.11-0.59) Eosinophils # (Auto) 0.56 K/uL (0-0.5) Basophils # (Auto) 0.07 K/uL (0-0.2) RDW Standard Deviation 51.1 fL (36.4-46.3) RDW Coefficient of Variation 15.0 % (11.5-14.5) Immature Granulocyte % (Auto) 0.2 % Immature Granulocyte # (Auto) 0.01 K/uL (0.00-0.02) Prothrombin Time 10.2 SECONDS (9.0-12.0) Prothromb Time International Ratio 1.0 (0.9-1.1) Activated Partial Thromboplast Time 32.4 SECONDS (21.0-31.0) Partial Thromboplastin Ratio 1.2 Est Creatinine Clear Calc Drug Dose 57.8 ml/min Estimated GFR () 89.1 Estimated GFR (Non- 76.9 BUN/Creatinine Ratio 19.1 (10-20) Calcium Level 9.0 mg/dl (8.5-10.1) Magnesium Level 2.5 mg/dl (1.8-2.4) Creatine Kinase MB 2.6 ng/ml (0.5-3.6) Creatine Kinase MB Ratio 1.7 (0-3.0) Urine Color YELLOW Urine Appearance CLEAR (CLEAR) Urine pH 7.5 (4.5-7.5) Urine Specific [place] 1.010 (1.000-1.030) Urine Protein NEG (NEG) Urine Glucose (UA) NEG (NEG) Urine Ketones NEG (NEG) Urine Occult Blood NEG (NEG) Urine Nitrite NEG (NEG) Urine Bilirubin NEG (NEG) Urine Urobilinogen NEG (NEG) Urine Leukocyte Esterase NEG (NEG) Bedside Hemoglobin 12.6 g/dl (12.0-16.0) Bedside Hematocrit 37 % (37-47) Bedside Sodium 142 mEq/L (135-144) Bedside Potassium 3.8 mEq/L (3.3-5.0) Bedside Chloride 107 mEq/L (101-112) Bedside Total CO2 24 mEq/l (24-31) Anion Gap 15.0 mmol/L (16-25) Bedside Blood Urea Nitrogen 15 mg/dl (7-18) Bedside Creatinine 0.7 mg/dl (0.6-1.3) Bedside Glucose (other) 102 mg/dl (70-99) Bedside Ionized Calcium (Sivakumar) 1.14 mmol/l (1.12-1.32) Bedside Glucose 106 mg/dl (70-90) Laboratory results reviewed by me Medications Administered Medications (Trade) Dose Ordered Sig/Melida Route Start Time Stop Time Status Last Admin Dose Admin Sodium Chloride 500 ml @ 999 mls/hr Q31M STAT IV 08/05/17 12:07 08/05/17 12:37 DC 08/05/17 13:05 999 MLS/HR ECG Per My Interpretation Indication: other (neuro symptoms) Rate (beats per minute): 55 Rhythm: sinus bradycardia Findings: no acute ischemic change, left axis deviation ED Course 1149: The patient was evaluated in room C11. A complete history and physical exam was performed. 1345: Upon reexamination, the patient was doing okay. I discussed the test results and treatment plan with her. The patient will be evaluated for further management. 1402: I discussed the patient with Dr. Samuel Castelan [facility] - She will evaluate the patient for further treatment. Medical Decision I reviewed the patient's past medical history, medications, and the nursing notes as described above. Differential diagnosis: Etiologies such as metabolic, infection, hypo/hyperglycemia, electrolyte abnormalities, cardiac sources, intracerebral event, toxicologic, neurologic, as well as others were entertained. The patient is an 82 y/o woman with a pmhx of migraines and prior CVA/TIAs who presents to the emergency department with intermittent episodes of left facial and arm numbness that began yesterday per HPI. On arrival the patient had a 15 second episode that resolved. Otherwise, in NAD, AFVSS. Neurologically objectively intact including 5/5 strength and SILT wnl. Normal cerebellar function with [id number], alternating palms, bctd-xy-vees. Labs unremarkable. CXR negative. CTA head/neck without ischemia or large vessel occlusion. Dose show left vertebral a. stenosis. 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 Reasonable to admit patient for MRI and monitoring for further CVA/TIA r/o. Case d/w DARSHAN Ibrahim hospitalist, who will admit the patient for further management. Medication Reconcilliation Current Medication List: was personally reviewed by me Blood Pressure Screening Patient's blood pressure: Elevated blood pressure Monitored by the hospitalist. Consults Time Called: 1400 Consulting Physician: Dr. Samuel HAGEN Hospitalist Returned Call: 1402 I discussed the patient with Dr. Samuel HAGEN Hospitalist - She will evaluate the patient for further treatment. Impression Primary Impression: Arm paresthesia, left Additional Impression: Facial paresthesia Scribe Attestation The scribe's documentation has been prepared under my direction and personally reviewed by me in its entirety. I confirm that the note above accurately reflects all work, treatment, procedures, and medical decision making performed by me. Departure Information Dispostion Being Evaluated By Hospitalist Referrals Helen Moreno M.D. (PCP) Patient Instructions [facility] Problem Qualifiers
--- NOTE | 2017-08-05 13:18 | DIAGNOSTIC IMAGING REPORT ---
ADDENDUM The corrected technique should read as follows: TECHNIQUE: Initially, multidetector CT imaging of the head was performed without the use of intravenous contrast. Subsequently, multidetector CT angiography of the head was performed after the administration of intravenous contrast. 3-D volumetric and/or maximum intensity projection (MIP) images were subsequently reconstructed for review. IV contrast: 94 mL of Optiray 320. A dose lowering technique was used consistent with the principles of ALARA (as low as reasonably achievable). Electronically signed by: Teddy Barraza M.D. 08/05/2017 2:03 PM Dictated Date/Time: 08/05/2017 2:01 PM ORIGINAL REPORT HEAD ANGIO WITH CONTRAST, HEAD WITHOUT CONTRAST (CT) CLINICAL HISTORY: 82 years-old Female presenting with stroke, arm and leg numbness. TECHNIQUE: Multidetector CT angiography of the head was performed after the administration of intravenous contrast. 3-D volumetric and/or maximum intensity projection (MIP) images were subsequently reconstructed for review. IV contrast: 94 mL of Optiray 320. A dose lowering technique was used consistent with the principles of ALARA (as low as reasonably achievable). COMPARISON: Brain MR from 2013. CT DOSE (mGy.cm): The estimated cumulative dose is 1133.02 mGy.cm. 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 Median sternotomy wires. NONCONTRAST CT HEAD: Proportional ventricular and sulcal prominence, likely age-related parenchymal volume loss. Periventricular and subcortical white matter hypoattenuation, nonspecific but likely indicative of chronic small vessel ischemic change. Limited focus of encephalomalacia at the anterior most right temporal lobe is unchanged from prior and likely postsurgical. No mass effect or midline shift. No hemorrhage or acute territorial infarct. No extra-axial fluid collection. Paranasal sinuses and mastoid air cells clear. Postsurgical changes of right pterional craniotomy. Intracranial atherosclerosis noted. CTA HEAD: Anterior circulation: Atherosclerosis of the internal carotid arteries without significant narrowing. Intracranial portions of the internal carotid arteries patent to the level of the termini. Anterior and middle cerebral arteries patent. Anterior communicating artery patent. Posterior circulation: Codominant vertebral arteries. Intradural portions of the vertebral arteries patent. Posterior inferior cerebellar arteries patent. Basilar artery patent. Anterior inferior cerebellar arteries poorly visualized. Superior cerebellar and posterior cerebral arteries patent. Posterior communicating arteries hypoplastic or aplastic. Dural venous sinuses: Patent. IMPRESSION: 1. No acute intracranial pathology. 2. 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 3. No evidence of aneurysm, focal vessel occlusion, or significant stenosis of the intracranial arteries. Electronically signed by: Teddy Barraza M.D. 08/05/2017 1:17 PM Dictated Date/Time: 08/05/2017 1:09 PM
--- NOTE | 2017-08-05 13:25 | DIAGNOSTIC IMAGING REPORT ---
NECK CTA HISTORY: Stroke symptoms. Right arm and leg numbness. TECHNIQUE: Multiaxial CT images of the neck were performed following the intravenous administration of contrast to evaluate the major cervical vessels. Maximum intensity projection images were also obtained. All measurements were calculated based on NASCET criteria. A dose lowering technique was utilized adhering to the principles of ALARA. COMPARISON STUDY: Carotid Doppler 02/11/2013. FINDINGS: The aortic arch and proximal great vessels are widely patent. Mild calcified plaque within the proximal left subclavian artery. High-grade stenosis at the origin of the left vertebral artery due to the extensive calcified plaque. Mild calcified plaque within the bilateral carotid bifurcations. The bilateral common carotid and internal carotid arteries are widely patent. The right vertebral artery is widely patent. Moderate to severe scattered calcified plaque within the left vertebral artery. This results in a long segment of mild narrowing within the mid left vertebral artery. Focal area of 50% stenosis within the distal left vertebral artery at the C2 level and at the C1 level. There are poststernotomy changes. No pneumothorax. Degenerative changes within the cervical spine. No fractures. The internal jugular veins are patent. IMPRESSION: 1. No significant stenosis or occlusion within the bilateral carotid arteries or right vertebral artery. 2. Multifocal areas of mild to moderate stenosis within the left vertebral artery due to the calcified plaque. There is also a focal area of high-grade stenosis at the takeoff of the left vertebral artery. Electronically signed by: Jorge Escobar M.D. 08/05/2017 1:23 PM Dictated Date/Time: 08/05/2017 1:17 PM
--- NOTE | 2017-08-05 14:09 | DIAGNOSTIC IMAGING REPORT ---
SINGLE VIEW CHEST CLINICAL HISTORY: Left arm numbness. FINDINGS: An AP, portable, upright chest radiograph is compared to study dated 07/07/2017. The examination is degraded by portable technique and patient rotation. The patient is status post midline sternotomy and aortic valve surgery. The heart is enlarged and there is atherosclerotic calcification of the thoracic aorta. The pulmonary vasculature is noncongested. Chronic interstitial thickening is similar to previous. No airspace consolidation or large pleural effusion is identified. There is mild bibasilar atelectasis. No pneumothorax is seen. The bony thorax is grossly intact. IMPRESSION: Cardiomegaly with no acute cardiopulmonary abnormality. Electronically signed by: Damian Russo M.D. 08/05/2017 2:08 PM Dictated Date/Time: 08/05/2017 2:07 PM
--- NOTE | 2017-08-05 14:25 | History and Physical ---
History & Physical Date & Time of Service: August 05, 2017 at 14:12 Chief Complaint: Arm And Leg Numbness Primary Care Physician: Helen Moreno M.D. History of Present Illness This is a an 82 yo F with PMHx of afib on eliquis, GERD, migraine, TIA/mini strokes on plavix, meningioma s/p surgical resection by Dr. Samayoa in 2007, in the past who presents with fleeting numbness over left sided cheek and lip (not extending past the midline), left upper extremity involving the thumb and forearm, and occasionally the left knee. The sensation in her cheek "feels like I've had novocaine", and lasts for only 1-2 minutes at the longest. She notes starting to feel the sensation last where it occurred once, then on Saturday several times, Saturday once or twice, and then yesterday lasted a longer period of time of upwards of 3 minutes, but then spontaneously resolves. On Saturday she called her PCP however was unable to be seen in the office at that point, so an appointment was scheduled for this morning and she was referred to the ER. She denies any motor weakness during the numbness or residual weakness. She denies any lightheadedness, dizziness, chest pain, palpitations, flutter, or increased heart rate during these events. Pt follows with Dr. Salamanca as an outpatient, and he is on consult today. CT imaging is negative for acute CVA. BP slightly elevated at time of admission with systolic in the 190s, but has come down into the 170s. Past Medical/Surgical History Medical Problems: (1) Asthma (2) Chest pain (3) Heart disease (4) HTN (hypertension) (5) Hypotension (6) Influenza (7) Pneumonia Surgical Problems: (1) History of knee replacement Family History Diabetes mellitus Heart disease Hypertension Lung disease Social History Smoking Status: Never Smoker Smokeless Tobacco Use: No Alcohol Use: none Drug Use: none Marital Status: Housing status: lives with family Occupational Status: unemployed Immunizations History of Influenza Vaccine: Yes Influenza Vaccine Date: Dec 27, 2008 History of Tetanus Vaccine?: Unknown History of Pneumococcal: Unknown History of Hepatitis B Vaccine: Unknown Allergies Coded Allergies: Penicillins (Verified Allergy, Mild, swelling, 08/05/17) Home Medications Scheduled Apixaban (Eliquis), 5 MG PO BID Artificial Tear Ointment (Refresh P.m.), 1 APPLN OPB UD Celecoxib (Celebrex), 1 CAP PO BID Cholecalciferol (Vitamin D3), 1,000 UNITS PO DAILY Clopidogrel (Plavix), 75 MG PO DAILY Fluticasone Prop/Salmeterol (Advair Diskus 250/50 60 Dose), 1 PUFFS INH BID Krill Oil (Krill Oil), 1 CAP PO DAILY Metoprolol Tartrate (Lopressor), 12.5 MG PO BID Omeprazole (Omeprazole), 20 MG PO DAILY Ranitidine (Zantac), 150 MG PO BID Sumatriptan Succinate (Imitrex), 100 MG PO PRN Topiramate (Topamax), 125 MG PO DAILY [Natural Tears], OPB PRN Scheduled PRN Cetirizine Hcl (Zyrtec Allergy), 5 MG PO DAILY PRN for Allergic Reaction Review of Systems Constitutional: No fever, sweats or chills Eyes: No diplopia, no worsening or blurred vision ENT: normal hearing, no trouble swallowing Respiratory: No cough, sputum, dyspnea at rest or on exertion Cardiovascular: No chest pain, tightness or palpitations Abdomen: No pain, nausea, vomiting, diarrhea or constipation Musculoskeletal: No joint pain, calf pain, swelling Neurologic: See HPI. Psychiatric: No anxiety or depression Skin: No rash or itch Physical Exam Vital Signs Date Time Temp Pulse Resp B/P (MAP) Pulse Ox O2 Delivery O2 Flow Rate FiO2 08/05/17 13:07 60 18 172/77 98 Room Air 08/05/17 12:15 60 08/05/17 12:06 62 18 172/75 Room Air 08/05/17 12:05 Room Air 08/05/17 11:59 36.9 67 20 191/96 97 Room Air General: awake, alert, no apparent distress Head: Normocephalic, atraumatic ENT: PERRL, EOMI, no pharyngeal exudate, mucous membranes moist Chest: Clear to auscultation, on room air, no adventitious breath sounds Cardiac: irregularly irregular, loud systolic murmur RUSB grade III/, no murmur, no JVD, normal peripheral pulses, good capillary refill Abdominal: NABS x 4 quadrants, soft, nontender to palpation, no rebound, guarding or tenderness Extremities: Normal inspection, no peripheral edema or erythema, calfs nontender to palpation Psych: Normal mood and affect Neuro: CN tested and are intact. + Decreased sensation over left cheek involving the left upper and lower lip to the midline which resolved within 2 minutes, + numbness over the left distal forearm and left thumb resolved within 2 minutes. AAO x 3, strength intact bilaterally and related 5/5, no pronator drift, Finger to nose testing intact, no motor deficits, speech is clear Diagnostics Laboratory Results Results Past 24 Hours Test 08/05/17 11:16 08/05/17 12:15 08/05/17 12:17 Range/Units White Blood Count 5.88 4.8-10.8 K/uL Red Blood Count 4.10 4.2-5.4 M/uL Hemoglobin 12.6 12.0-16.0 g/dL Hematocrit 38.0 37-47 % Mean Corpuscular Volume 92.7 80-100 fL Mean Corpuscular Hemoglobin 30.7 25-34 pg Mean Corpuscular Hemoglobin Concent 33.2 32-36 g/dl Platelet Count 196 130-400 K/uL Mean Platelet Volume 9.7 7.4-10.4 fL Neutrophils (%) (Auto) 65.0 % Lymphocytes (%) (Auto) 18.0 % Monocytes (%) (Auto) 6.1 % Eosinophils (%) (Auto) 9.5 % Basophils (%) (Auto) 1.2 % Neutrophils # (Auto) 3.82 1.4-6.5 K/uL Lymphocytes # (Auto) 1.06 1.2-3.4 K/uL Monocytes # (Auto) 0.36 0.11-0.59 K/uL Eosinophils # (Auto) 0.56 0-0.5 K/uL Basophils # (Auto) 0.07 0-0.2 K/uL RDW Standard Deviation 51.1 36.4-46.3 fL RDW Coefficient of Variation 15.0 11.5-14.5 % Immature Granulocyte % (Auto) 0.2 % Immature Granulocyte # (Auto) 0.01 0.00-0.02 K/uL Prothrombin Time 10.2 9.0-12.0 SECONDS Prothromb Time International Ratio 1.0 0.9-1.1 Activated Partial Thromboplast Time 32.4 21.0-31.0 SECONDS Partial Thromboplastin Ratio 1.2 Sodium Level 141 136-145 mmol/L Potassium Level 4.0 3.5-5.1 mmol/L Chloride Level 110 98-107 mmol/L Carbon Dioxide Level 25 21-32 mmol/L Anion Gap 6.0 15.0 16-25 mmol/L Blood Urea Nitrogen 14 7-18 mg/dl Creatinine 0.72 0.60-1.20 mg/dl Est Creatinine Clear Calc Drug Dose 57.8 ml/min Estimated GFR () 89.1 Estimated GFR (Non- 76.9 BUN/Creatinine Ratio 19.1 10-20 Random Glucose 102 70-99 mg/dl Calcium Level 9.0 8.5-10.1 mg/dl Magnesium Level 2.5 1.8-2.4 mg/dl Total Creatine Kinase 149 26-192 U/L Creatine Kinase MB 2.6 0.5-3.6 ng/ml Creatine Kinase MB Ratio 1.7 0-3.0 Troponin I < 0.015 0-0.045 ng/ml Urine Color YELLOW Urine Appearance CLEAR CLEAR Urine pH 7.5 4.5-7.5 Urine Specific Cameron 1.010 1.000-1.030 Urine Protein NEG NEG Urine Glucose (UA) NEG NEG Urine Ketones NEG NEG Urine Occult Blood NEG NEG Urine Nitrite NEG NEG Urine Bilirubin NEG NEG Urine Urobilinogen NEG NEG Urine Leukocyte Esterase NEG NEG Bedside Hemoglobin 12.6 12.0-16.0 g/dl Bedside Hematocrit 37 37-47 % Bedside Sodium 142 135-144 mEq/L Bedside Potassium 3.8 3.3-5.0 mEq/L Bedside Chloride 107 101-112 mEq/L Bedside Total CO2 24 24-31 mEq/l Bedside Blood Urea Nitrogen 15 7-18 mg/dl Bedside Creatinine 0.7 0.6-1.3 mg/dl Bedside Glucose (other) 102 70-99 mg/dl Bedside Ionized Calcium (Sivakumar) 1.14 1.12-1.32 mmol/l Diagnostic Radiology ADDENDUM The corrected technique should read as follows: TECHNIQUE: Initially, multidetector CT imaging of the head was performed without the use of intravenous contrast. Subsequently, multidetector CT angiography of the head was performed after the administration of intravenous contrast. 3-D volumetric and/or maximum intensity projection (MIP) images were subsequently reconstructed for review. IV contrast: 94 mL of Optiray 320. A dose lowering technique was used consistent with the principles of ALARA (as low as reasonably achievable). Electronically signed by: Teddy Barraza M.D. 08/05/2017 2:03 PM Dictated Date/Time: 08/05/2017 2:01 PM ORIGINAL REPORT HEAD ANGIO WITH CONTRAST, HEAD WITHOUT CONTRAST (CT) CLINICAL HISTORY: 82 years-old Female presenting with stroke, arm and leg numbness. TECHNIQUE: Multidetector CT angiography of the head was performed after the administration of intravenous contrast. 3-D volumetric and/or maximum intensity projection (MIP) images were subsequently reconstructed for review. IV contrast: 94 mL of Optiray 320. A dose lowering technique was used consistent with the principles of ALARA (as low as reasonably achievable). COMPARISON: Brain MR from 2013. CT DOSE (mGy.cm): The estimated cumulative dose is 1133.02 mGy.cm. 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 Median sternotomy wires. NONCONTRAST CT HEAD: Proportional ventricular and sulcal prominence, likely age-related parenchymal volume loss. Periventricular and subcortical white matter hypoattenuation, nonspecific but likely indicative of chronic small vessel ischemic change. Limited focus of encephalomalacia at the anterior most right temporal lobe is unchanged from prior and likely postsurgical. No mass effect or midline shift. No hemorrhage or acute territorial infarct. No extra-axial fluid collection. Paranasal sinuses and mastoid air cells clear. Postsurgical changes of right pterional craniotomy. Intracranial atherosclerosis noted. CTA HEAD: Anterior circulation: Atherosclerosis of the internal carotid arteries without significant narrowing. Intracranial portions of the internal carotid arteries patent to the level of the termini. Anterior and middle cerebral arteries patent. Anterior communicating artery patent. Posterior circulation: Codominant vertebral arteries. Intradural portions of the vertebral arteries patent. Posterior inferior cerebellar arteries patent. Basilar artery patent. Anterior inferior cerebellar arteries poorly visualized. Superior cerebellar and posterior cerebral arteries patent. Posterior communicating arteries hypoplastic or aplastic. Dural venous sinuses: Patent. IMPRESSION: 1. No acute intracranial pathology. 2. 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 3. No evidence of aneurysm, focal vessel occlusion, or significant stenosis of the intracranial arteries. Electronically signed by: Teddy Barraza M.D. 08/05/2017 1:17 PM Dictated Date/Time: 08/05/2017 1:09 PM The status of this report is Signed. DIAGNOSTIC IMAGING [~ rep ct add3]] SINGLE VIEW CHEST CLINICAL HISTORY: Left arm numbness. FINDINGS: An AP, portable, upright chest radiograph is compared to study dated 07/07/2017. The examination is degraded by portable technique and patient rotation. The patient is status post midline sternotomy and aortic valve surgery. The heart is enlarged and there is atherosclerotic calcification of the thoracic aorta. The pulmonary vasculature is noncongested. Chronic interstitial thickening is similar to previous. No airspace consolidation or large pleural effusion is identified. There is mild bibasilar atelectasis. No pneumothorax is seen. The bony thorax is grossly intact. IMPRESSION: Cardiomegaly with no acute cardiopulmonary abnormality. Electronically signed by: Damian Russo M.D. 08/05/2017 2:08 PM Dictated Date/Time: 08/05/2017 2:07 PM The status of this report is Signed. Draft = Not yet reviewed or approved by Radiologist EKG Sinus bradycardia Left axis deviation Abnormal ECG When compared with ECG of 08-JUL-2017 10:56, Premature atrial complexes are no longer Present Vent. rate 55 BPM OK interval 184 ms QRS duration 88 ms QT/QTc 440/420 ms P-R-T axes 37 -35 42 Impression Assessment and Plan This is a an 82 yo F with PMHx of afib on eliquis, GERD, migraine, TIA/mini strokes on plavix, meningioma s/p surgical resection by Dr. Samayoa in 2007, in the past who presents with fleeting numbness over left sided cheek and lip (not extending past the midline), left upper extremity involving the thumb and forearm, and occasionally the left knee. TIA r/o Hx mini strokes/ TIA Hx meningioma s/p surg resection - Admit to tele for monitoring, Stroke admit set completed - Neuro checks Q2H, out of window for possible TPA - Check lipids, A1C with am labs, Follow troponin and CKMB - CTA/CT head and reviewed and negative - will order MRI of the brain at this time - Neuro consulted - Follows with Dr. Salamanca as an outpatient - Echo from June 2017 with normal EF, mild diastolic dysfunction. + moderate - Continue plavix - Allow for permissive hypertension at this time with SBP 160-180 and DBP 80- 100 for now until seen by neurology. - Takes imitrex and topomax as outpatient, will continue for now for migraine. - Pt currently without barreto. Diastolic CHF Moderate Aortic stenosis s/p bioprosthetic valve placement in 2002 - chronic, Echo as above. No acute exacerbation - Cont metoprolol Afib - Continue on eliquis - Monitor on tele GERD - Cont ppi and H2 antagonist DVT ppx: teds, plavix/eliquis CODE: DNR Disposition: From home, lives alone. Daughters are present and were updated at bedside. Will order PT/OT evals and CM to assist with dc planning. Resuscitation Status VTE Prophylaxis Will order VTE Prophylaxis: Yes History Patient seen and examined, chart reviewed, case discussed with ROBERT Haynes and I agree with her assessment and plan as documented above. Briefly, patient is an 82yo female with history of AF on Eliquis, GERD, Migraine, TIA, Meningioma s/ p rxs presenting with episodic numbness over left cheek and lip, LUE and LLE lasting 1-2 minutes then resolving on its own. She denies CP/palpitations/SOB, denies weakness. Remainder of ROS is negative. On physical exam she is hypertensive 172/77, HR=60, RR=18, 98% on room air. She is resting comfortably, NAD. HEENT unremarkable. Heart +S1/S2, regular, 3/ 6 NEETU heard across the precordium with radiation to carotids. Lungs CTA bilaterally. Abdomen soft, NT/ND. Extremities with scattered ecchymoses on forearms. No active bleeding. Neuro with 5/5 MS in UE/LE bilaterally, CN intact, sensation intact. Assessment: 82yo female with history of atrial fibrillation, Migraine, TIA, Meningioma presenting with transient episodic sensory deficits. Symptoms not strongly consistent with CVA Plan: Admit to telemetry for CVA/TIA. Check lipids, AIC, MRI brain. Neurology consultation - patient is known to Dr. Salamanca. Remainder of plan as above.
[2017-08-05] MEDS ORDERED: SUMATRIPTAN SUCC TAB 100 MG TAB PO PRN (14:30)
[2017-08-05] MEDS ORDERED: ONDANSETRON INJ 2 MG/ML 2 ML VIAL IV PRN (14:30)
[2017-08-05] MEDS ORDERED: ACETAMINOPHEN 325 MG TAB PO PRN (14:30)
[2017-08-05] MEDS ORDERED: CETIRIZINE HCL 10 MG TAB PO PRN (14:30)
[2017-08-05] MEDS ORDERED: ARTIFICIAL TEARS OP OINT 3.5 GM TUBE OPB PRN (14:30)
[2017-08-05] MEDS ORDERED: PHARMACIST DISCHARGE MED REC CONSULT PRN (14:30)
[2017-08-05] MEDS ORDERED: LORAZEPAM 2 MG/ML 1 ML VIAL IV STA (15:46)
[2017-08-05 17:00] VITALS: BP 151/79; PULSE 67; TEMP 36.9; O2SAT 97
[2017-08-05 17:18] VITALS: BP 151/79; PULSE 67; TEMP 36.9; O2SAT 97; Ht 162.6 cm; Wt 72.2 kg
[2017-08-05 20:00] VITALS: O2SAT 97
[2017-08-05 20:30] VITALS: BP 116/74; PULSE 70; TEMP 36.7; O2SAT 94
[2017-08-05] MEDS ORDERED: LORAZEPAM 2 MG/ML 1 ML VIAL ONE (21:26)
[2017-08-05] MEDS: APIXABAN 2.5 MG TAB PO SCH (21:29)
[2017-08-05] MEDS: FLUTICASONE/SALMETEROL 250/50 (ADVAIR) 14 PUFF/1 INHALER INH SCH (21:29)
[2017-08-05] MEDS: RANITIDINE HCL 150 MG TAB PO SCH (21:30)
[2017-08-05] MEDS: METOPROLOL TARTRATE 25 MG TAB PO SCH (21:30)
[2017-08-05] MEDS ORDERED: GADAVIST IV PRN (22:45)
[2017-08-05 22:57] VITALS: BP 124/69; PULSE 72; TEMP 36.7; O2SAT 92
--- NOTE | 2017-08-05 23:21 | DIAGNOSTIC IMAGING REPORT ---
BRAIN COMBO HISTORY: 82 years-old Female R/o stroke, Left sided facial numbess acute left-sided facial numbness. 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 There is no restricted diffusion to suggest acute or subacute infarction. Midline structures including the corpus callosum, brainstem, optic chiasm, pituitary and pineal glands appear unremarkable. No cerebellar tonsillar herniation. Study is mildly motion degraded. Moderate parenchymal atrophy with ex vacuo ventriculomegaly. Extensive T2/FLAIR prolongation throughout the white matter is compatible with chronic microvascular ischemic changes. There is no acute intracranial hemorrhage, midline shift, abnormal extra-axial collections, hydrocephalus or intracranial mass identified. Craniotomy changes of the right temporal bone. Mild encephalomalacia of the right temporal lobe redemonstrated. There is no abnormal intra-axial or extra-axial enhancement identified. The major flow voids at the level of the skull base are patent. Thinning of the bilateral optic lenses from prior bilateral cataract repair. Moderate left and trace right mastoid effusions. Mild mucosal thickening of the ethmoid air cells. Soft tissues are unremarkable. IMPRESSION: 1. No acute intracranial abnormality identified. 2. No acute infarction or abnormal enhancement. 3. Chronic changes as above. The above report was generated using voice recognition software. It may contain grammatical, syntax or spelling errors. Electronically signed by: Richardson Duenas M.D. 08/05/2017 11:20 PM Dictated Date/Time: 08/05/2017 11:10 PM
[2017-08-06] VITALS (9 sets, daily range): BP systolic 113–122; BP diastolic 61–73; PULSE 56–78; TEMP 36.4–36.5; O2SAT 94–97
[2017-08-06 04:22] LABS: BASO % 1.5 %; BASO ABS # 0.07 K/uL (0-0.2); EOS ABS # 0.59 K/uL (0-0.5); HEMATOCRIT 34.2 % (37-47); HEMOGLOBIN 11.5 g/dL (12.0-16.0); IG# 0.01 K/uL (0.00-0.02); LYMPH % 20.7 %; LYMPH ABS # 0.94 K/uL (1.2-3.4); MEAN CELL VOLUME 92.2 fL (80-100); MEAN CORPUSCULAR HGB CONC 33.6 g/dl (32-36); MEAN PLATELET VOLUME 9.5 fL (7.4-10.4); NEUT % 53.6 %; NEUT ABS # 2.43 K/uL (1.4-6.5); PLATELET COUNT 164 K/uL (130-400); RED CELL DISTRIBUTION WIDTH CV 15.1 % (11.5-14.5); WHITE BLOOD COUNT 4.54 K/uL (4.8-10.8)
[2017-08-06 04:48] LABS: BLOOD UREA NITROGEN 14 mg/dl (7-18); CALCIUM 8.2 mg/dl (8.5-10.1); CARBON DIOXIDE 27 mmol/L (21-32); CHOLESTEROL 226 mg/dl (0-200); CREATININE 0.75 mg/dl (0.60-1.20); GLUCOSE 105 mg/dl (70-99); LDL CHOLESTEROL CALCULATED 152 mg/dl; POTASSIUM 3.9 mmol/L (3.5-5.1); SODIUM 142 mmol/L (136-145)
[2017-08-06 06:04] LABS: HEMOGLOBIN A1C 5.9 % (4.5-5.6)
[2017-08-06] MEDS: FLUTICASONE/SALMETEROL 250/50 (ADVAIR) 14 PUFF/1 INHALER INH SCH (07:47)
[2017-08-06] MEDS: METOPROLOL TARTRATE 25 MG TAB PO SCH (07:48)
[2017-08-06] MEDS: RANITIDINE HCL 150 MG TAB PO SCH (07:50)
[2017-08-06] MEDS: APIXABAN 2.5 MG TAB PO SCH (07:51)
[2017-08-06] MEDS ORDERED: TOPIRAMATE 25 MG TAB PO SCH (09:00)
[2017-08-06] MEDS ORDERED: SIMVASTATIN 10 MG TAB PO SCH (09:00)
[2017-08-06] MEDS ORDERED: TOPIRAMATE PO SCH ×2 (09:00)
[2017-08-06] MEDS ORDERED: CLOPIDOGREL BISULFATE 75 MG TAB PO SCH (09:00)
--- NOTE | 2017-08-06 10:31 | Neurology Consultation ---
Neurology Consultation Date of Consultation: August 06, 2017. Attending Physician: Ishaan Knowles MD Primary Care Physician: Helen Moreno M.D. Reason for Consultation: Patient is an 82-year-old, who was asked to see the request of Dr. Khadijah Baker, for neurologic consultation regarding acute onset intermittent numbness , question TIA versus stroke History of Present Illness Source: patient, clinic records, hospital records I 1st saw this patient in 2002 for migraine headaches, which she has been getting since her teens. Over the years her headaches have become less frequent and she has responded to topiramate. She has weaned herself down to topiramate 25 mg once daily and gets headaches about once a month or so. When she gets a headache it includes her aura and it is random. Sumatriptan does help. Patient has been on Eliquis for atrial fibrillation and Aortic valve replacement (bovine), as well as clopidogrel 75 mg a day for history of previous small vessel ischemic disease. She has been very stable on this over time. She had a right frontal meningioma removed by Dr. Samayoa in 2007. I have not seen this patient in about a year. Over the last 4 days she has been having very brief episodes of numbness lasting about 1-2 minutes at a time, coming and going randomly. They will suddenly occur with numbness in the left hand and forearm as well as the left cheek and side of the mouth/lips. There is of unusual sensation in her left knee but the leg on the left is not really get numb. When she gets the numbness feels like "Novocain". Her trunk does not get numb either. She does not have any headaches before during or after these and there is no other weakness, speech problems, pain, cognitive issues, or balance problems otherwise. She read the emergency room August 05, at 1159 hours with a temperature of 36.9 , pulse 67 regular, blood pressure 191/96, respiratory rate 20, and O2 saturation 97%. Her neurologic examination was unremarkable and she had no encephalopathy. CT scan of the head showed old ischemic changes. CT angiography of the head was unremarkable. CT angiography of the neck showed multiple areas of left vertebral stenosis. Chest x-ray showed some cardiomegaly MRI of the brain revealed no stroke of a new nature. She had moderate old nonspecific small vessel ischemic disease. There was no meningioma recurrence and there were postop changes on the right side. Laboratory studies revealed a reasonable CBC and Chem profile although cholesterol was elevated to 226 . Hemoglobin A1c was 5.9. Patient has had a mild right-sided headache since last evening. She attributes this to the sedation she needed to get the MRI. She is still little bit groggy from this sedation. Otherwise, she feels back to baseline today. 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60 Smoking Status: Never smoker Smokeless Tobacco Use: No Alcohol Use: none Drug Use: none Marital Status: Housing Status: lives with family Occupation Status: unemployed Allergies Coded Allergies: Penicillins (Verified Allergy, Mild, swelling, 08/05/17) Current Inpatient Medications Current Inpatient Medications Medications (Trade) Dose Ordered Sig/Melida Route Start Time Stop Time Status Last Admin Dose Admin Ioversol (Optiray 320) 100 ml UD PRN IV 08/05/17 12:15 08/09/17 12:14 Miscellaneous Information (Pharmacist Discharge Med Rec Consult) 1 ea UD PRN N/A 08/05/17 14:30 09/04/17 14:29 Acetaminophen (Tylenol Tab) 650 mg Q4H PRN PO 08/05/17 14:30 09/04/17 14:29 Ondansetron HCl (Zofran Inj) 4 mg Q6H PRN IV 08/05/17 14:30 09/04/17 14:29 Apixaban (Eliquis Tab) 5 mg BID PO 08/05/17 21:00 09/04/17 20:59 08/06/17 07:51 5 MG Artificial Tears (Lacri-Lube Oph Oint) 1 appln PRN PRN OPB 08/05/17 14:30 09/04/17 14:29 Cetirizine HCl (zyrTEC TAB) 5 mg DAILY PRN PO 08/05/17 14:30 09/04/17 14:29 08/06/17 07:49 5 MG Clopidogrel Bisulfate (plAVix TAB) 75 mg DAILY PO 08/06/17 09:00 09/05/17 08:59 08/06/17 07:50 75 MG Salmeterol Xinafoate/ Fluticasone (Advair Diskus 250/50 Inh) 1 puff BID INH 08/05/17 21:00 09/04/17 20:59 08/06/17 07:47 1 PUFF Metoprolol Tartrate (Lopressor Tab) 12.5 mg BID PO 08/05/17 21:00 09/04/17 20:59 08/06/17 07:48 12.5 MG Ranitidine HCl (zANTac TAB) 150 mg BID PO 08/05/17 21:00 09/04/17 20:59 08/06/17 07:50 150 MG Topiramate (Topamax Tab) 125 mg DAILY PO 08/06/17 09:00 09/05/17 08:59 08/06/17 07:49 125 MG Gadobutrol (Gadavist) 7.5 mmol UD PRN IV 08/05/17 22:45 08/09/17 22:44 Atorvastatin Calcium (Lipitor Tab) 40 mg QAM PO 08/07/17 09:00 09/06/17 08:59 Review of Systems Constitutional: No weakness, No fatigue Eyes: No worsening of vision, No diplopia ENT: No hearing loss, No tinnitus, No trouble swallowing Respiratory: No cough, No shortness of breath Cardiovascular: No chest pain, No palpitations Abdomen: No pain, No nausea Musculoskeletal: No joint pain, No muscle pain Genitourinary - Female: No dysuria, No urinary incontinence Neurologic: No memory loss, No weakness, No numbness/tingling, No vertigo, No balance problems Psychiatric: No depression symptoms, No anxiety Endocrine: No fatigue Hematologic / Lymphatic: No abnormal bleeding/bruising Integumentary: No rash Allergic / Immunologic: No hives Physical Exam Vital Signs (Past 24 Hrs): Date Time Temp Pulse Resp B/P (MAP) Pulse Ox O2 Delivery O2 Flow Rate FiO2 08/06/17 07:12 36.5 56 16 113/61 (78) 94 Room Air 08/06/17 04:00 97 Room Air 08/06/17 03:38 36.4 58 16 122/66 (84) 96 Room Air 08/06/17 00:01 97 Room Air 08/05/17 22:57 36.7 72 16 124/69 (87) 92 Room Air 08/05/17 20:30 36.7 70 17 116/74 (88) 94 Room Air 08/05/17 20:00 97 Room Air 08/05/17 17:18 36.9 67 18 151/79 97 Room Air 08/05/17 17:00 36.9 67 18 151/79 (103) 97 Room Air 08/05/17 16:03 63 152/66 97 08/05/17 15:00 62 17 161/68 96 Room Air 08/05/17 13:07 60 18 172/77 98 Room Air 08/05/17 12:15 60 08/05/17 12:06 62 18 172/75 Room Air 08/05/17 12:05 Room Air 08/05/17 11:59 36.9 67 20 191/96 97 Room Air Patient is right-handed. The patient is awake and alert. Speech is normal without aphasia or dysarthria. Mentation and thought processes are intact with full orientation and normal fund of knowledge. Mood and affect are normal and appropriate. Appearance and grooming are normal. Long and short-term memory are intact. The discs are sharp with positive venous pulsations. There are no exudates, hemorrhages, or blood vessel changes seen. Pupils are 4mm bilaterally and reactive to light. Extraocular eye muscles are intact without nystagmus. Visual acuity and visual delacruz seem normal grossly to confrontation. There are no deficits to sensation of the face bilaterally. Corneal reflexes are positive bilaterally. Facial strength and symmetry is normal bilaterally. Hearing seems intact grossly to voice and finger rub. Palate moves well without asymmetry. There is normal sternocleidomastoid and trapezius strength bilaterally. Tongue is midline with good strength bilaterally. Neck is with full range of motion without discomfort. There are no cervical bruits. There are no cranial or ocular bruits. Heart is without murmur. Cervical, thoracic, and lumbar spine are nontender to palpation. Gait is normal. There is good arm swing, turn, stance, and balance. With outstretched arms there is no drift. There are no resting, postural, or action tremors. There is no ataxia with [id number] testing. There is good facility in the hands. There are no abnormal involuntary movements noted. Motor strength is 5/5 diffusely in the arms bilaterally including deltoids, biceps, brachioradialis, wrist flexors and extensors, clinical rehabilitation specialist, and intrinsic hand muscles. Motor strength is 5/5 diffusely in the legs bilaterally including hip flexors, quadriceps, hamstring, gastrocnemius, tibialis anterior, tibialis posterior, and peroneii muscles bilaterally. Toe extensors are normal and there is good bulk in the extensor digitorum brevis muscle bilaterally. The limbs have good tone without rigidity or spasticity, and there is no atrophy noted. Muscle bulk is normal, there is no tenderness, no myotonia noted to percussion, and no fasciculations seen. Sensory examination reveals a stocking distribution loss to pin and touch in the feet bilaterally to the lower legs. Reflexes are 0/4 in the biceps, triceps, brachioradialis, quadriceps, and Achilles tendons bilaterally. Toes are downgoing with plantar stimulation bilaterally. Peripheral pulses are present and of normal quality distally in all four limbs. There is no peripheral edema noted. Laboratory Results Past 24 Hours: 08/06/17 04:03 Red Blood Count 3.71, Mean Corpuscular Volume 92.2, Mean Corpuscular Hemoglobin 31.0, Mean Corpuscular Hemoglobin Concent 33.6, Mean Platelet Volume 9.5, Neutrophils (%) (Auto) 53.6, Lymphocytes (%) (Auto) 20.7, Monocytes (%) (Auto) 11.0, Eosinophils (%) (Auto) 13.0, Basophils (%) (Auto) 1.5, Neutrophils # (Auto ) 2.43, Lymphocytes # (Auto) 0.94, Monocytes # (Auto) 0.50, Eosinophils # (Auto ) 0.59, Basophils # (Auto) 0.07 08/06/17 04:03 Test 08/05/17 11:16 08/05/17 12:15 08/05/17 12:17 08/05/17 12:39 Prothrombin Time 10.2 SECONDS (9.0-12.0) Prothromb Time International Ratio 1.0 (0.9-1.1) Activated Partial Thromboplast Time 32.4 SECONDS (21.0-31.0) Partial Thromboplastin Ratio 1.2 Estimated Average Glucose 123 mg/dl Hemoglobin A1c 5.9 % (4.5-5.6) Magnesium Level 2.5 mg/dl (1.8-2.4) Creatine Kinase MB 2.6 ng/ml (0.5-3.6) Creatine Kinase MB Ratio 1.7 (0-3.0) Urine Color YELLOW Urine Appearance CLEAR (CLEAR) Urine pH 7.5 (4.5-7.5) Urine Specific Hutchinson 1.010 (1.000-1.030) Urine Protein NEG (NEG) Urine Glucose (UA) NEG (NEG) Urine Ketones NEG (NEG) Urine Occult Blood NEG (NEG) Urine Nitrite NEG (NEG) Urine Bilirubin NEG (NEG) Urine Urobilinogen NEG (NEG) Urine Leukocyte Esterase NEG (NEG) Bedside Hemoglobin 12.6 g/dl (12.0-16.0) Bedside Hematocrit 37 % (37-47) Bedside Sodium 142 mEq/L (135-144) Bedside Potassium 3.8 mEq/L (3.3-5.0) Bedside Chloride 107 mEq/L (101-112) Bedside Total CO2 24 mEq/l (24-31) Bedside Blood Urea Nitrogen 15 mg/dl (7-18) Bedside Creatinine 0.7 mg/dl (0.6-1.3) Bedside Glucose (other) 102 mg/dl (70-99) Bedside Ionized Calcium (Sivakumar) 1.14 mmol/l (1.12-1.32) Bedside Glucose 106 mg/dl (70-90) Test 08/06/17 04:03 White Blood Count 4.54 K/uL (4.8-10.8) Red Blood Count 3.71 M/uL (4.2-5.4) Hemoglobin 11.5 g/dL (12.0-16.0) Hematocrit 34.2 % (37-47) Mean Corpuscular Volume 92.2 fL (80-100) Mean Corpuscular Hemoglobin 31.0 pg (25-34) Mean Corpuscular Hemoglobin Concent 33.6 g/dl (32-36) Platelet Count 164 K/uL (130-400) Mean Platelet Volume 9.5 fL (7.4-10.4) Neutrophils (%) (Auto) 53.6 % Lymphocytes (%) (Auto) 20.7 % Monocytes (%) (Auto) 11.0 % Eosinophils (%) (Auto) 13.0 % Basophils (%) (Auto) 1.5 % Neutrophils # (Auto) 2.43 K/uL (1.4-6.5) Lymphocytes # (Auto) 0.94 K/uL (1.2-3.4) Monocytes # (Auto) 0.50 K/uL (0.11-0.59) Eosinophils # (Auto) 0.59 K/uL (0-0.5) Basophils # (Auto) 0.07 K/uL (0-0.2) RDW Standard Deviation 51.0 fL (36.4-46.3) RDW Coefficient of Variation 15.1 % (11.5-14.5) Immature Granulocyte % (Auto) 0.2 % Immature Granulocyte # (Auto) 0.01 K/uL (0.00-0.02) Anion Gap 4.0 mmol/L (3-11) Est Creatinine Clear Calc Drug Dose 55.5 ml/min Estimated GFR () 84.8 Estimated GFR (Non- 73.2 BUN/Creatinine Ratio 19.2 (10-20) Calcium Level 8.2 mg/dl (8.5-10.1) Total Creatine Kinase 124 U/L (26-192) Troponin I < 0.015 ng/ml (0-0.045) Triglycerides Level 99 mg/dl (0-150) Cholesterol Level 226 mg/dl (0-200) HDL Cholesterol 54 mg/dl LDL Cholesterol, Calculated 152 mg/dl VLDL Cholesterol, Calculated 20 mg/dl Cholesterol/HDL Ratio 4.2 Imaging BRAIN COMBO HISTORY: 82 years-old Female R/o stroke, Left sided facial numbess acute left-sided facial numbness. Prior right parietal meningioma resection COMPARISON: CT head 08/05/2017, MRI brain 10/22/2013 TECHNIQUE: Multiplanar multisequence MRI of the brain was obtained both with and without use of 7.5 mL Gadavist FINDINGS: Assistant Professor In Family Studies localizer images demonstrate no gross abnormality. There is no restricted diffusion to suggest acute or subacute infarction. Midline structures including the corpus callosum, brainstem, optic chiasm, pituitary and pineal glands appear unremarkable. No cerebellar tonsillar herniation. Study is mildly motion degraded. Moderate parenchymal atrophy with ex vacuo ventriculomegaly. Extensive T2/FLAIR prolongation throughout the white matter is compatible with chronic microvascular ischemic changes. There is no acute intracranial hemorrhage, midline shift, abnormal extra-axial collections, hydrocephalus or intracranial mass identified. Craniotomy changes of the right temporal bone. Mild encephalomalacia of the right temporal lobe redemonstrated. There is no abnormal intra-axial or extra-axial enhancement identified. The major flow voids at the level of the skull base are patent. Thinning of the bilateral optic lenses from prior bilateral cataract repair. Moderate left and trace right mastoid effusions. Mild mucosal thickening of the ethmoid air cells. Soft tissues are unremarkable. IMPRESSION: 1. No acute intracranial abnormality identified. 2. No acute infarction or abnormal enhancement. 3. Chronic changes as above. The above report was generated using voice recognition software. It may contain grammatical, syntax or spelling errors. Electronically signed by: Richardson Duenas M.D. 08/05/2017 11:20 PM Impression 1. New onset episodes of numbness of a very short duration (1-2 minutes at most ) intermittently over the last 4 days. These are very nonspecific and fleeting. Currently, her neurologic examination is unremarkable with no flow new focal findings, meningeal signs, or encephalopathy. I am not sure these episodes represent true TIAs. They may be more related to migraine phenomenon. There is no evidence of stroke. 2. History of aortic valve replacement and atrial fibrillation on anticoagulation as well as chronic small vessel cerebral ischemic disease on clopidogrel. 3. History of hypertension, elevated on admission, but improved since admission. 4. Polyneuropathy, predominantly sensory fibers, of a longstanding nature of uncertain etiology. This is stable. Plan 1. I do not have any additional neurologic testing recommendations to make at this time. 2. Increase topiramate to 25 mg twice daily and I can follow up as an outpatient. Overall, I spent a total of 70 minutes with this patient including review of old records, film review, direct evaluation the patient and discussion with the patient at bedside regarding differential diagnosis and treatment options. I have also discussed case with Lynnette Knutson including differential diagnosis and treatment options.
[2017-08-06] MEDS ORDERED: TPM25 PO (12:41)
[2017-08-06] MEDS ORDERED: TOPI25TA55 PO (14:12)
--- NOTE | 2017-08-06 14:29 | Discharge Instructions ---
Discharge Instructions Date of Service August 06, 2017. Admission Reason for Admission: TIA Discharge Discharge Diagnosis / Problem: Intermittent numbness Discharge Goals Goal(s): Decrease discomfort, Diagnostic testing, Therapeutic intervention Activity Recommendations Activity Limitations: resume your previous activity . Instructions / Follow-Up Instructions / Follow-Up You were admitted to the hospital for observation after presenting with intermittent left face numbness due to concern for a stroke or mini stroke. You had extensive imaging to evaluate for this, which was negative. You had blood tests done to help assess for risk factors, and this revealed high cholesterol. It is recommended that you take a medicine to lower your cholesterol, but as you refused, this was not prescribed. You were evaluated by neurology who does not think you had a stroke or mini stroke; however, these symptoms could be related possibly to a migraine phenomenon. Dr. Salamanca recommend increasing your Topamax. You are now medically stable for discharge. Medications: *Please take Topamax 25 mg twice a day. *Continue your other home medications as prescribed. Follow up: *You have been scheduled to follow up with your primary care provider and neurology. Please seek medical attention if you experience fevers, chills, sweats, dizziness/lightheadedness, loss of consciousness, chest pain, shortness of breath, nausea, vomiting, numbness or tingling. Risk Factors for Stroke: You can reduce your chances of stroke by working with your medical provider to adopt a healthy lifestyle. Some specific ways to lower your chance of stroke are: * If you are a smoker, now is the time to stop smoking cigarettes * If you are diabetic, improve the control of your blood sugars * Avoid excessive amounts of alcohol * Control high blood pressure * Lose weight if you are overweight * Be sure to lead an active lifestyle * Eat a healthy diet low in salt, cholesterol and fat You should know about other risk factors for stroke that you are unable to control. These include: * Age 55 years or older * Male gender * Certain racial groups: , or / * Family History of Stroke, Mini stroke or Heart Attack * Sickle Cell Disease Follow Up: It is important for you to keep your follow up appointments with your medical provider. Current Hospital Diet Patient's current hospital diet: AHA Diet (Heart Healthy) Discharge Diet Recommended Diet: AHA Diet (Heart Healthy) Pending Studies Studies pending at discharge: no Laboratory Results Hemoglobin A1c Test 08/05/17 11:16 Range/Units Estimated Average Glucose 123 mg/dl Hemoglobin A1c 5.9 H 4.5-5.6 % Lipid Panel Test 08/06/17 04:03 Range/Units Triglycerides Level 99 0-150 mg/dl Cholesterol Level 226 H 0-200 mg/dl HDL Cholesterol 54 mg/dl Cholesterol/HDL Ratio 4.2 LDL Cholesterol, Calculated 152 mg/dl Medical Emergencies . Who to Call and When: Medical Emergencies: Call 911 immediately if you experience any of the following warning signs and symptoms of Stroke: * Sudden numbness or weakness of the face, arm or leg, especially on one side of the body * Sudden confusion, trouble speaking or understanding * Sudden trouble seeing in one or both eyes * Sudden trouble walking, dizziness, loss of balance or coordination * Sudden severe headache with no cause Do not delay calling 911 if you experience any warning signs or symptoms of a stroke. Delay in seeking medical attention may affect what treatments can be given to you. . Non-Emergent Contact Non-Emergency issues call your: Primary Care Provider, Neurologist Call Non-Emergent contact if: you have a fever, you have any medication questions . Past History Medical & Surgical History: (1) Facial paresthesia . "Provider Documentation" section prepared by Jannet Tariq. . Stroke Core Measures Reason no t-PA for Stroke: Treatment not indicated Reason no antithrom by day 2: Treatment provided - N/A Reason no antithrom at D/C: Treatment provided - N/A Reason no statin at D/C: Refusal of tx by patient Reason no anticoag w/a fib: Treatment provided - N/A
--- NOTE | 2017-08-06 14:45 | Discharge Summary ---
Discharge Summary Date of Service August 06, 2017. Discharge Summary Admission Date: August 05, 2017 at 14:24 Discharge Date: August 06, 2017 Discharge Disposition: Home Principal Diagnosis: Intermittent numbness; question of TIA Problems/Secondary Diagnoses: PAF on Eliquis, h/o TIA, asthma/allergies, migraines, GERD, h/o meningioma s/p surgical resection by Dr. Samayoa in 2007 Immunizations: Have You Had Influenza Vaccine: Yes Influenza Vaccine Date: Dec 27, 2008 History of Tetanus Vaccine?: Unknown History of Pneumococcal: Unknown History of Hepatitis B Vaccine: Unknown Procedures: BRAIN COMBO HISTORY: 82 years-old Female R/o stroke, Left sided facial numbess acute left-sided facial numbness. Prior right parietal meningioma resection COMPARISON: CT head 08/05/2017, MRI brain 10/22/2013 TECHNIQUE: Multiplanar multisequence MRI of the brain was obtained both with and without use of 7.5 mL Gadavist FINDINGS: Therapeutic Radiologist localizer images demonstrate no gross abnormality. There is no restricted diffusion to suggest acute or subacute infarction. Midline structures including the corpus callosum, brainstem, optic chiasm, pituitary and pineal glands appear unremarkable. No cerebellar tonsillar herniation. Study is mildly motion degraded. Moderate parenchymal atrophy with ex vacuo ventriculomegaly. Extensive T2/FLAIR prolongation throughout the white matter is compatible with chronic microvascular ischemic changes. There is no acute intracranial hemorrhage, midline shift, abnormal extra-axial collections, hydrocephalus or intracranial mass identified. Craniotomy changes of the right temporal bone. Mild encephalomalacia of the right temporal lobe redemonstrated. There is no abnormal intra-axial or extra-axial enhancement identified. The major flow voids at the level of the skull base are patent. Thinning of the bilateral optic lenses from prior bilateral cataract repair. Moderate left and trace right mastoid effusions. Mild mucosal thickening of the ethmoid air cells. Soft tissues are unremarkable. IMPRESSION: 1. No acute intracranial abnormality identified. 2. No acute infarction or abnormal enhancement. 3. Chronic changes as above. HEAD ANGIO WITH CONTRAST, HEAD WITHOUT CONTRAST (CT) CLINICAL HISTORY: 82 years-old Female presenting with stroke, arm and leg numbness. TECHNIQUE: Multidetector CT angiography of the head was performed after the administration of intravenous contrast. 3-D volumetric and/or maximum intensity projection (MIP) images were subsequently reconstructed for review. IV contrast: 94 mL of Optiray 320. A dose lowering technique was used consistent with the principles of ALARA (as low as reasonably achievable). COMPARISON: Brain MR from 2013. CT DOSE (mGy.cm): The estimated cumulative dose is 1133.02 mGy.cm. FINDINGS: Therapeutic Radiologist topogram: Right craniotomy. Median sternotomy wires. NONCONTRAST CT HEAD: Proportional ventricular and sulcal prominence, likely age-related parenchymal volume loss. Periventricular and subcortical white matter hypoattenuation, nonspecific but likely indicative of chronic small vessel ischemic change. Limited focus of encephalomalacia at the anterior most right temporal lobe is unchanged from prior and likely postsurgical. No mass effect or midline shift. No hemorrhage or acute territorial infarct. No extra-axial fluid collection. Paranasal sinuses and mastoid air cells clear. Postsurgical changes of right pterional craniotomy. Intracranial atherosclerosis noted. CTA HEAD: Anterior circulation: Atherosclerosis of the internal carotid arteries without significant narrowing. Intracranial portions of the internal carotid arteries patent to the level of the termini. Anterior and middle cerebral arteries patent. Anterior communicating artery patent. Posterior circulation: Codominant vertebral arteries. Intradural portions of the vertebral arteries patent. Posterior inferior cerebellar arteries patent. Basilar artery patent. Anterior inferior cerebellar arteries poorly visualized. Superior cerebellar and posterior cerebral arteries patent. Posterior communicating arteries hypoplastic or aplastic. Dural venous sinuses: Patent. IMPRESSION: 1. No acute intracranial pathology. 2. 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 3. No evidence of aneurysm, focal vessel occlusion, or significant stenosis of the intracranial arteries. NECK CTA HISTORY: Stroke symptoms. Right arm and leg numbness. TECHNIQUE: Multiaxial CT images of the neck were performed following the intravenous administration of contrast to evaluate the major cervical vessels. Maximum intensity projection images were also obtained. All measurements were calculated based on NASCET criteria. A dose lowering technique was utilized adhering to the principles of ALARA. COMPARISON STUDY: Carotid Doppler 02/11/2013. FINDINGS: The aortic arch and proximal great vessels are widely patent. Mild calcified plaque within the proximal left subclavian artery. High-grade stenosis at the origin of the left vertebral artery due to the extensive calcified plaque. Mild calcified plaque within the bilateral carotid bifurcations. The bilateral common carotid and internal carotid arteries are widely patent. The right vertebral artery is widely patent. Moderate to severe scattered calcified plaque within the left vertebral artery. This results in a long segment of mild narrowing within the mid left vertebral artery. Focal area of 50% stenosis within the distal left vertebral artery at the C2 level and at the C1 level. There are poststernotomy changes. No pneumothorax. Degenerative changes within the cervical spine. No fractures. The internal jugular veins are patent. IMPRESSION: 1. No significant stenosis or occlusion within the bilateral carotid arteries or right vertebral artery. 2. Multifocal areas of mild to moderate stenosis within the left vertebral artery due to the calcified plaque. There is also a focal area of high-grade stenosis at the takeoff of the left vertebral artery. Consultations: Neurology PT, OT, speech Medication Reconciliation New Medications: Topiramate (Topamax) 25 Mg Tab 1 TAB PO BID for 30 Days, #60 TAB Continued Medications: Apixaban (Eliquis) 2.5 Mg Tab 5 MG PO BID for 30 Days, #120 TAB 1 Refill Artificial Tear Ointment (Refresh P.m.) 1 Oin Oin 1 APPLN OPB UD Celecoxib (Celebrex) 100 Mg Cap 1 CAP PO BID Cetirizine Hcl (Zyrtec Allergy) 10 Mg Tab 5 MG PO DAILY PRN for Allergic Reaction Cholecalciferol (Vitamin D3) 1,000 Unit Tab 1000 UNITS PO DAILY Clopidogrel (Plavix) 75 Mg Tab 75 MG PO DAILY Fluticasone Prop/Salmeterol (Advair Diskus 250/50 60 Dose) 1 Ea Aerp 1 PUFFS INH BID Krill Oil (Krill Oil) 1 Cap Cap 1 CAP PO DAILY Metoprolol Tartrate (Lopressor) 25 Mg Tab 12.5 MG PO BID for 30 Days, #30 TAB 1 Refill Omeprazole (Omeprazole) 20 Mg Tab 20 MG PO DAILY Ranitidine (Zantac) 150 Mg Tab 150 MG PO BID Sumatriptan Succinate (Imitrex) 100 Mg Tab 100 MG PO PRN, TAB TAKE DIRECTED FOR MIGRAINE [Natural Tears] () OPB PRN Discontinued Medications: Topiramate (Topiramate) 25 Mg Tab 25 MG PO DAILY Discharge Exam Patient reports feeling well. She denies any further paresthesias today. She denies any slurred speech, facial droop. She denies any motor weakness. She denies any headaches during the episodes of paresthesias but reports having a migraine one week prior. The patient denies fevers, chills, sweats, chest pain , palpitations, claudication, cough, wheezing, shortness of breath, nausea, vomiting, abdominal pain, dysuria, hematuria, urinary retention, paralysis, weakness, numbness and tingling. Constitutional: No fever, No chills, No sweats Eyes: No worsening of vision, No eye pain, No diplopia ENT: No hearing loss, No nasal symptoms, No trouble swallowing Respiratory: No cough, No wheezing, No shortness of breath Cardiovascular: No chest pain, No claudication, No palpitations Abdomen: No pain, No nausea, No vomiting Musculoskeletal: No joint pain, No muscle pain, No swelling Genitourinary - Female: No dysuria, No urinary retention, No hematuria Neurologic: No paralysis, No weakness, No numbness/tingling Integumentary: No rash, No itch, No color change General appearance: Well-developed, well-nourished, no apparent distress Head: Normocephalic, atraumatic Eyes: Normal inspection, PERRL, EOMI ENT: Normal ENT inspection, hearing grossly normal, pharynx normal Neck: Supple, no JVD, trachea midline Respiratory/Chest: Lungs clear to auscultation, normal breath sounds, no respiratory distress Cardiovascular: +Systolic murmur. Regular rate & rhythm, no gallop Abdomen/GI: Normal bowel sounds, non-tender, soft Extremities/Musculoskeletal: Normal inspection, no calf tenderness, no pedal edema Neurological/Psych: Alert, normal mood/affect, oriented x 3 Skin: Normal color, warm/dry, no rash Hospital Course 82 y/o female with a history of paroxysmal a-fib on Eliquis, h/o TIA on Plavix, h/o meningioma s/p surgical resection by Dr. Samayoa (2007), migraines, and GERD who presents with fleeting numbness over left side of cheek and lip (not extending past the midline), at times left upper extremity involving the thumb and forearm, and occasionally the left knee. Paresthesias, h/o TIA, migraines--paresthesias resolved today -Admit to [facility] for observation. No acute events overnight. pt in sinus rhythm with HR 60s-70s. -Head CT, CTA head and neck largely unremarkable. Moderate stenosis in left vertebral artery but no intervention for this -Brain MRI negative -Echo from June 2017 with normal EF, mild diastolic dysfunction. + moderate -Lipid panel shows total cholesterol 226, HLD 54, non-HDL 172. Recommended pt take a statin to help lower cholesterol and cardiovascular risk, she staunchly refused -HgbA1c 5.9 -Neurology consulted, appreciate recs: Spoke with Dr. Salamanca. Symptoms not specific for TIA, may be some migraine phenomenon. No further neurological testing recommended at this time. Recommend increasing topiramate to 25 mg BID and following up with neuro as outpatient. Continue Eliquis and Plavix. -Increase Topamax 25 mg PO BID, Imitrex prn -Continue Plavix PAF--stable, in NSR -Continue Eliquis 5 mg PO BID, Lopressor 12.5 mg PO BID Diastolic dysfunction, aortic stenosis s/p bioprosthetic valve (2002)--stable -Echo as above -Continue Lopressor as above GERD - Cont PPI and Zantac BID Attending Attestation - Pt seen/examined, chart reviewed, care plan d/w PA Jannet Tariq. I agree w/ the terrazas components of her discharge summary. 82yo female with history of PAF and prior TIA who presented with several days of intermittent paresthesias involving the left face, left arm, and left knee region. TIA work-up including MRI brain was negative for acute stroke and other acute findings. She did not have recurrence of her paresthesias while hospitalized. Telemetry, labs, and other imaging as noted above were normal. She was seen in consult by neurology and the exact etiology of her symptoms was uncertain. This could have been due to complicated migraines vs TIA vs other. Neurology advised increasing her topamax to 25mg BID. No other changes were made. Discharge exam: gen - nad face - no droop neck - no JVD heart - RRR, s1, s2 lungs - CTA b/l abd - soft, NT ext - no edema neuro - strength 5/5 x 4 exts; sensation intact to light touch on the face, arms , and legs She will follow-up with her PCP and neurology as noted below in the "follow up" section. Ishaan Knowles MD Total Time Spent: Greater than 30 minutes This includes examination of the patient, discharge planning, medication reconciliation, and communication with other providers. Discharge Instructions Please refer to the electronic Patient Visit Report (Discharge Instructions) for additional information. Follow-Up 1. Dr. Helen Moreno - SaturdayAugust 13 at 11:[address] Macho White - August 15 at 1:00 pm. 3. Yasmeen JONES-Chuy - SaturdaySeptember 02 at 10:00 am. Additional Copies To Helen Moreno M.D.; Yasmeen Walters; Macho White M.D.
[2017-08-07] MEDS ORDERED: ATORVASTATIN 40 MG TAB PO SCH (09:00)
== END 2017-08-06 15:05 | disposition home or self-care (01) | DRG 92 ==
LOC: EDBD 11:40 → C.EDC 11:41 → C.2T 14:24 → ENRESERV 14:46
PROVIDERS: ADMIT Internal Medicine; ATTEND Internal Medicine
DX: R20.0 Anesthesia of skin (principal); I50.32 Chronic diastolic (congestive) heart failure; I48.0 Paroxysmal atrial fibrillation; K21.9 Gastro-esophageal reflux disease without esophagitis; J45.909 Unspecified asthma, uncomplicated; I35.0 Nonrheumatic aortic (valve) stenosis; Z66 Do not resuscitate; G43.109 Migraine with aura, not intractable, without status migrainosus; G62.9 Polyneuropathy, unspecified; I11.0 Hypertensive heart disease with heart failure; Z96.659 Presence of unspecified artificial knee joint; Z87.01 Personal history of pneumonia (recurrent); Z79.01 Long term (current) use of anticoagulants; Z88.0 Allergy status to penicillin; Z86.73 Personal history of transient ischemic attack (TIA), and cerebral infarction without residual deficits; Z95.2 Presence of prosthetic heart valve; Z83.3 Family history of diabetes mellitus; Z82.49 Family history of ischemic heart disease and other diseases of the circulatory system

== ENCOUNTER 2019-08-23 20:02 | Observation (INO) ==
[2019-08-23] MEDS ORDERED: ONDANSETRON INJ 2 MG/ML 2 ML VIAL IV STA (20:31)
[2019-08-23] MEDS ORDERED: SODIUM CHLORIDE 0.9% 1000ML 500 ML IV ONE (20:31)
[2019-08-23 21:04] LABS: Hematocrit (blood only) 34.6 % (37-47); Mean Corpuscular Hemoglobin 26.6 pg (25-34); Mean Corpuscular Hgb Conc 31.8 g/dL (32-36); Mean Corpuscular Volume 83.8 fL (80-100); Mean Platelet Volume 9.7 fL (7.4-10.4); Platelet Count 182 K/uL (130-400); RDW Coefficient of Variation 17.6 % (11.5-14.5); RDW Standard Deviation 54.2 fL (36.4-46.3); Red Blood Count 4.13 M/uL (4.2-5.4); White Blood Count 9.59 K/uL (4.8-10.8)
[2019-08-23 21:31] LABS: Albumin Level 2.6 gm/dl (3.4-5.0); BUN Creatinine Ratio 18.4 (10-20); Calcium 8.3 mg/dl (8.5-10.1); Creatinine Clr Calc Pharmacy 40.9 ml/min; Est GFR (African American) 65.3; Est GFR (Non-African American) 56.4
[2019-08-23 21:32] LABS: Albumin Globulin Ratio 0.6 (0.9-2); Bilirubin,Total 0.3 mg/dl (0.2-1); Globulin 4.2 gm/dl (2.5-4.0); Thyroid Stimulating Hormone 3.14 uIu/ml (0.300-4.500); Total Protein 6.8 gm/dl (6.4-8.2); Troponin I 0.042 ng/ml (0-0.045)
--- NOTE | 2019-08-23 21:51 | Emergency Department Note ---
Impression & Plan Syncope, Abnormal ECG, Elevated troponin, Anemia ED Provider Note NAME: JYOTI PEGUERO AGE: 84 SEX: F : 1935 ARRIVES VIA: Ambulance INFORMANT: Patient ED PROVIDER(S): Alf Sims DO CHIEF COMPLAINT: Syncope HPI: Patient is an 84-year-old female who presents the ER following 2 syncopal episodes. She was seen here earlier today for abdominal pain and was worked up and had blood work along with a CT abdomen pelvis which was unremarkable. She did have a pneumonia. She was recently tested positive for ward virus. She did get this from her daughter who works at a facility that has this. She admits to a cough. No fevers. No shortness of breath. No chest pain. She does have some dizziness which started she got home today. She notes that the dizziness is worse with movement of her head. She denies any headaches or change in vision. She notes that she passed out on the toilet when she was nauseated. She also passed out while sitting in the chair when she was nauseated. Denies any vomiting or diarrhea. ROS: See above HPI for pertinent positives & negatives. A total of 10 systems reviewed and were otherwise negative. PAST MEDICAL HISTORY:See Below PAST SURGICAL HISTORY:See Below FAMILY HISTORY:See Below SOCIAL HISTORY:See Below HOME MEDICATIONS:See Below ALLERGIES:See Below VITALS:See Below PHYSICAL EXAMINATION: GENERAL: Sitting up in bed, alert, well appearing, well nourished, no distress, non-toxic EYE EXAM: normal conjunctiva. PERRL and EOM's grossly intact. OROPHARYNX: no exudate, no erythema, lips, buccal mucosa, and tongue normal and mucous membranes are moist NECK: supple, no nuchal rigidity, no adenopathy, non-tender LUNGS: Clear to auscultation. Normal chest wall mechanics HEART: no murmurs, S1 normal and S2 normal ABDOMEN: abdomen soft, non-tender, normo-active bowel sounds, no masses, no rebound or guarding. BACK: Back is symmetrical on inspection and there is no deformity, no midline tenderness, no CVA tenderness. SKIN: no rashes and no bruising UPPER EXTREMITIES: upper extremities are grossly normal. LOWER EXTREMITIES: No pitting edema. NEURO EXAM: Normal sensorium, cranial nerves II-XII intact, normal speech, no weakness of arms, no weakness of legs. No drift. Finger to nose intact. Gross sensation intact. MEDICAL DECISION MAKING: Patient is an 84-year-old female who was seen here earlier today who returns for 2 syncopal episodes. IV was established blood work was obtained. Labs show no significant leukocytosis or anemia. BMP with a slightly low CO2 of 20. This is new from previous as earlier today it was 26. LFTs bilirubin was unremarkable. Troponin is now doubled from earlier today. Initially was undetectable and then went to 0.026. Patient was discharged. Repeat now is 0.043. TSH was unremarkable. EKG was nondiagnostic although the changes in the high lateral leads do appear to be worse. Patient was neurologically intact. I did not perform a CT of the head as she recently had IV contrast and that would skew the images. She was updated and discussed with the hospitalist for admission. Of note when the patient was found by EMS she was found to be hypoxic with a pulse ox of 88% for prolonged period of time. She has not been hypoxic throughout her stay in the ER. Triage Nursing notes reviewed. Prior medical records reviewed Vital Signs: reviewed and remarkable for no significant abnormalities Differential diagnosis: Differential diagnosis includes etiologies such as vasovagal event, infection, hypoglycemia, electrolyte abnormalities, cardiac sources, intracerebral event, toxicologic, neurologic, as well as others were entertained. ER treatment provided: See below Diagnostics interpreted by me: ECG: Sinus tachycardia rate of [address] depressions in the high lateral leads No PVCs Normal QTC Cardiac Monitoring: An order was placed for continuous cardiac monitoring. The monitor shows a rate of 98 with sinus rhythm. Laboratory studies: As stated above and show below. Imaging studies: Previous chest x-ray reviewed. Consultation(s): Discussed with Dr. Noemy Baker ED COURSE: Procedures: none Critical Care: None Past Med/Surg History Social History Preferred Language: Lithuanian marital status: / Current Living Situation: Alone current occupational status: retired Feels Safe at Home: Yes Smoking Status: Never smoker Second Hand Exposure: No ; Hx Alcohol Use: No Hx Substance Use: No caffeine: Yes Dental Care, Regularly: Yes Physical Activity Frequency: Daily Seatbelt Use: always Sunscreen Use: No Allergies Allergies Allergy/AdvReac Type Severity Reaction Status Date / Time Penicillins Allergy Mild swelling Verified 08/23/19 13:11 Home Meds Home Medications Medication Instructions Recorded Confirmed dextran 70-hypromellose 0.1 %-0.3 1 drops OP UD ml 08/22/18 08/23/19 % eye drops krill oil 500 mg capsule 500 mg PO DAILY cap 09/21/18 08/23/19 albuterol sulfate 90 mcg/actuation 1 - 2 puffs INHALATION UD PRN gm 01/25/19 08/23/19 aerosol inhaler cetirizine 10 mg tablet 5 mg PO DAILY PRN tab 01/25/19 08/23/19 cholecalciferol (vitamin D3) 25 1,000 units PO DAILY tab 01/25/19 08/23/19 mcg (1,000 unit) tablet white petrolatum-mineral oil 57.3 1 appln OP UD gm 01/25/19 08/23/19 %-42.5 % eye ointment topiramate 50 mg tablet 50 mg PO BID tab 04/28/19 08/23/19 celecoxib 100 mg PO BID 08/23/19 08/23/19 omeprazole 20 mg PO DAILY 08/23/19 08/23/19 sumatriptan succinate See Rx Instructions .ROUTE 08/23/19 08/23/19 .COMPLEX PRN Previous Rx's Medication Instructions Recorded metoprolol succinate 25 mg 25 mg PO DAILY #90 tab 09/21/18 tablet,extended release 24 hr oxybutynin chloride 5 mg tablet 5 mg PO BID #60 tab 02/22/19 apixaban 5 mg tablet 5 mg PO BID #90 tab 07/31/19 prednisone 20 mg tablet 20 mg PO .COMPLEX #18 tab 08/14/19 albuterol sulfate 1.25 mg/3 mL 1.25 mg INH QID PRN #75 ml 08/21/19 solution for nebulization nebulizers #1 ea 08/21/19 levofloxacin [Levaquin] 750 mg PO DAILY 4 Days #4 tab 08/23/19 Results & Data (ED) Vital Signs Vital Signs - 24 hr 08/23/19 20:39 Temperature 37.3 C Temperature Source Oral Pulse Rate 102 H Respiratory Rate 14 Blood Pressure 121/66 Blood Pressure Mean 84 Blood Pressure Position Sitting Pulse Oximetry 97 Oxygen Delivery Method Room Air Sepsis Recent Fever Within 48 Hours No Sepsis Action Taken by Nursing No Action Required Laboratory Data Result diagrams: 08/23/19 20:31 08/23/19 20:31 Lab Results 08/23/19 08/23/19 Range/Units 20:31 20:31 WBC 9.59 (4.8-10.8) K/uL RBC 4.13 L (4.2-5.4) M/uL Hgb 11.0 L (12.0-16.0) g/dL Hct 34.6 L (37-47) % MCV 83.8 (80-100) fL MCH 26.6 (25-34) pg MCHC 31.8 L (32-36) g/dL RDW Std Deviation 54.2 H (36.4-46.3) fL RDW Coeff of Justa 17.6 H (11.5-14.5) % Plt Count 182 (130-400) K/uL MPV 9.7 (7.4-10.4) fL Sodium 139 (136-145) mmol/L Potassium (3.5-5.1) mmol/L Chloride 109 H (98-107) mmol/L Carbon Dioxide 20 L (21-32) mmol/L Anion Gap 10.0 (3-11) BUN 17 (7-18) mg/dl Creatinine 0.92 (0.6-1.2) mg/dl Est Cr Clr Drug Dosing 40.9 ml/min Est GFR ( Amer) 65.3 Est GFR (Non-Af Amer) 56.4 BUN/Creatinine Ratio 18.4 (10-20) Glucose 143 H (70-99) mg/dl Calcium 8.3 L (8.5-10.1) mg/dl Magnesium (1.8-2.4) mg/dl Total Bilirubin 0.3 (0.2-1) mg/dl AST (15-37) U/L ALT 27 (12-78) U/L Alkaline Phosphatase 54 (45-117) U/L Troponin I 0.042 (0-0.045) ng/ml Total Protein 6.8 (6.4-8.2) gm/dl Albumin 2.6 L (3.4-5.0) gm/dl Globulin 4.2 H (2.5-4.0) gm/dl Albumin/Globulin Ratio 0.6 L (0.9-2) TSH 3.140 (0.300-4.500) uIu/ml Discharge Plan Visit Data Chief Complaint: Syncope ED Provider: Alf Sims Discharge Problem: Syncope, Abnormal ECG, Elevated troponin, Anemia Forms Stand Alone Forms: [facility] Prescriptions Prescriptions: No Action oxybutynin chloride 5 mg tablet 5 mg PO BID Qty: 60 RF: 5 apixaban 5 mg tablet 5 mg PO BID Qty: 90 RF: 3 prednisone 20 mg tablet 20 mg PO .COMPLEX Qty: 18 RF: 0 albuterol sulfate 1.25 mg/3 mL solution for nebulization 1.25 mg INH QID PRN (Reason: shortness of breath or wheezing) Qty: 75 RF: 3 (DME) AeroEclipse II Nebulizer Misc See Rx Instructions .ROUTE .MEDSUPPLY Qty: 1 RF: 0 dextran 70-hypromellose 0.1-0.3 % drops 1 drops OP UD RF: 0 krill oil 500 mg capsule 500 mg PO DAILY RF: 0 metoprolol succinate 25 mg tablet extended release 24 hr 25 mg PO DAILY Qty: 90 RF: 0 cholecalciferol (vitamin D3) 25 mcg (1,000 unit) tablet 1,000 units PO DAILY RF: 0 white petrolatum-mineral oil 57.3-42.5 % ointment 1 appln OP UD RF: 0 albuterol sulfate 90 mcg/actuation HFA aerosol inhaler 1 - 2 puffs inhalation UD PRN (Reason: shortness of breath or wheezing) RF: 0 cetirizine 10 mg tablet 5 mg PO DAILY PRN (Reason: Itching) RF: 0 topiramate 50 mg tablet 50 mg PO BID RF: 0 sumatriptan succinate 100 mg tablet See Rx Instructions .ROUTE .COMPLEX PRN (Reason: Migraine Headache) RF: 0 omeprazole 20 mg capsule,delayed release(DR/EC) 20 mg PO DAILY RF: 0 celecoxib 100 mg capsule 100 mg PO BID RF: 0 levofloxacin [Levaquin] 750 mg tablet 750 mg PO DAILY 4 Days Qty: 4 RF: 0 Discharge Problem: Syncope Qualifiers: Syncope type: unspecified Qualified Code(s): R55 - Syncope and collapse Anemia Qualifiers: Anemia type: unspecified type Qualified Code(s): D64.9 - Anemia, unspecified
[2019-08-23 21:58] LABS: Basophils # (auto) 0.02 K/uL (0-0.2); Basophils % (auto) 0.2 %; Eosinophils # (auto) 0.03 K/uL (0-0.5); Eosinophils % (auto) 0.3 %; Hypochromasia Present; Immature Granulocytes # (auto) 0.02 K/uL (0.00-0.02); Immature Granulocytes % (auto) 0.2 %; Lymphocytes # (auto) 0.45 K/uL (1.2-3.4); Lymphocytes % (auto) 4.7 %; Monocytes # (auto) 0.54 K/uL (0.11-0.59); Monocytes % (auto) 5.6 %; Neutrophils # (auto) 8.53 K/uL (1.4-6.5)
[2019-08-23 22:31] LABS: Potassium 3.6 mmol/L (3.5-5.1)
[2019-08-23 22:35] LABS: Magnesium 2.1 mg/dl (1.8-2.4)
--- NOTE | 2019-08-23 22:56 | History & Physical Report ---
Date of Service August 23, 2019 Assessment & Plan (1) Syncope: 84yo C female with recent COVID-19 infection, recent ER visit with abdominal pain returns with syncopal event x 2, near syncope x 1. Patient presently afebrile, HD stable. Her EKG has some ectopic beats present. Troponin detectable 0.026 --> 0.042 -Observation to medical floor with telemetry monitoring -Check 2D echo -Trend troponin -Check orthostatic VS Present on Admission?: Yes (2) Epigastric abdominal pain: Resolved. Negative workup. Abdomen soft, NT/ND -Continue to monitor Present on Admission?: Yes (3) Pneumonia: Patient found with LLL infiltrate concerning for PNA. Clinically she denies CP/SOB/fevers/chills/sweats/malaise. She states that she has a little chest discomfort with very deep breathing. Uncertain if this represents an active PNA vs lingering Xray findings from her recent Covid infection -Continue Levaquin Present on Admission?: Yes (4) COVID-19: Patient developed symptoms of COVID-19 on August 07, she had positive testing on August 10. She denies fevers/chills/SOB/cough or CP now or for the last week. She refuses Covid-19 testing for clearance and safe discontinuation of isolation precautions. Per CDC guidelines patient meets criteria for safe discontinuation of precautions base on "duration of symptoms model". Per discussion with hospital coordinator she will need to be placed on the Covid unit for now. -Recommend that patient be placed in Airborne Precaution room overnight -ID/Infection Control consultation tomorrow to assist with safe discontinuation of isolation Present on Admission?: Yes (5) HTN (hypertension): Blood pressure well controlled -Continue Metoprolol -Continue to monitor Present on Admission?: Yes (6) Asthma: No cough/sob or wheeze. Adequate oxygenation on room air -Continue Albuterol HFA PRN -Continue Steroid taper as prescribed Present on Admission?: Yes (7) Atrial fibrillation: Rate controlled. On anticoagulation with Apixaban -Continue Metoprolol -Continue Apixaban F/E/N - LR at 80mL/hr, electrolytes WNL, Heart healthy diet as tolerated Ppx - On Apixaban Code - Full Dispo - Observation to Med-Tele Family Contact: Maria C Mckeon - [phone]. Please update her daily Present on Admission?: Yes Admission and Anticipated Discharge Date Admission Date: 08/23/19 Anticipated date of discharge: 08/24/19 History of Present Illness Chief Complaint: Syncope Primary Care Provider: Helen Moreno MD Roya Robert is an 84yo C female presenting with Syncope. Patient developed URI symptoms on AUGUST 07 to include chest discomfort with deep breathing, fatigue. She was diagnosed with COVID-19 on AUGUST 10. She denies fevers/chills/cough/SOB/chest pain/loss of taste or smell for at least one week. She reports never developing a fever or cough during the course of her illness. She reports being cleared from quarantine. She was seen in the ER today with complaint of acute onset of severe epigastric pain which lasted approximately 5 to 8 minutes with radiation to the back. She had a CXR with a left lower lung infiltrate consistent with PNA. Gallbladder ultrasound with gallstones, no evidence of acute cholecystitis. CT of the abdomen revealed gallstones, constipation, buttock hematoma. She was prescribed Levaquin for her PNA and sent home. Patient reports that she developed nausea after taking the Levaquin on an empty stomach. She did not eat or drink much during the day. She was sitting in a chair when she had a syncopal event. She got up and walked to her bathroom and sat on the commode where she had a second syncopal event. She denies CP/palpitations/SOB/cough/numbness/weakness/seizure like activity preceding or following the event. Is not sure if she experienced a prodrome. EMS was called and patient was having a difficult time ambulating due to weakness and had a near syncopal event while trying to ambulate. Presently she is complaining of feeling of fullness in her ears and head. No additional complaints at this time. She reports no recurrence of her abdominal pain. ER Course: Zofran 4mg IV, NSS x 500 Allergies Allergy/AdvReac Type Severity Reaction Status Date / Time Penicillins Allergy Mild swelling Verified 08/23/19 13:11 Home Medications Home Medications Medication Instructions Recorded Confirmed Type dextran 70-hypromellose 0.1 %-0.3 1 drops OP UD ml 08/22/18 08/23/19 History % eye drops krill oil 500 mg capsule 500 mg PO DAILY cap 09/21/18 08/23/19 History metoprolol succinate 25 mg 25 mg PO DAILY #90 tab 09/21/18 08/23/19 Rx tablet,extended release 24 hr albuterol sulfate 90 mcg/actuation 1 - 2 puffs INHALATION UD PRN gm 01/25/19 08/23/19 History aerosol inhaler cetirizine 10 mg tablet 5 mg PO DAILY PRN tab 01/25/19 08/23/19 History cholecalciferol (vitamin D3) 25 1,000 units PO DAILY tab 01/25/19 08/23/19 History mcg (1,000 unit) tablet white petrolatum-mineral oil 57.3 1 appln OP UD gm 01/25/19 08/23/19 History %-42.5 % eye ointment oxybutynin chloride 5 mg tablet 5 mg PO BID #60 tab 02/22/19 08/23/19 Rx topiramate 50 mg tablet 50 mg PO BID tab 04/28/19 08/23/19 History apixaban 5 mg tablet 5 mg PO BID #90 tab 07/31/19 08/23/19 Rx prednisone 20 mg tablet 20 mg PO .COMPLEX #18 tab 08/14/19 08/23/19 Rx albuterol sulfate 1.25 mg/3 mL 1.25 mg INH QID PRN #75 ml 08/21/19 08/23/19 Rx solution for nebulization nebulizers #1 ea 08/21/19 08/23/19 Rx celecoxib 100 mg PO BID 08/23/19 08/23/19 History levofloxacin [Levaquin] 750 mg PO DAILY 4 Days #4 tab 08/23/19 08/23/19 Rx omeprazole 20 mg PO DAILY 08/23/19 08/23/19 History sumatriptan succinate See Rx Instructions .ROUTE 08/23/19 08/23/19 History .COMPLEX PRN Past Med/Surg History Social History Preferred Language: Welsh marital status: / Current Living Situation: Alone current occupational status: retired Feels Safe at Home: Yes Smoking Status: Never smoker Second Hand Exposure: No ; Hx Alcohol Use: No Hx Substance Use: No caffeine: Yes Dental Care, Regularly: Yes Physical Activity Frequency: Daily Seatbelt Use: always Sunscreen Use: No Review of Systems Review of Systems: All systems reviewed & are unremarkable except as noted in HPI & below Physical Exam Physical Exam: General: patient resting comfortably, NAD, non-toxic in appearance, AA&O x 4 Skin: warm, dry, intact, no rashes or lesions HEENT: NC/AT, PERRL, EOMI, anicteric sclera, conjunctiva without injection, external ear normal to inspection and nontender with manipulation of tragus and pinna, TMs retracted R>L, no erythema/bulging or evidence of OM, nares patent, slightly dry mucus membranes, dentition intact, no oropharyngeal lesions, neck supple, trachea midline, no LAD, no thyromegaly, no JVD Heart: +S1/S2, irregularly irregular, 3/6 NEETU across precordium Lungs: equal air entry bilaterally, +soft crackles in left base Abd: +BS, soft, NT/ND, no masses/organomegaly/ascites Ext: warm, 2+ pulses in UE/LE bilaterally, no clubbing/cyanosis, trace edema Neuro: nonfocal, patient AA&O x 4, speech intact, no facial droop, moving all extremities on command with equal strength 5/5 Results & Data Results & Data ([facility]) Vital Signs (Past 12 Hours) Vital Signs Temp Pulse Resp BP Pulse Ox 08/23/19 20:39 37.3 C 102 H 14 121/66 97 Laboratory Results Lab Results 08/23/19 08/23/19 08/23/19 Range/Units 20:31 20:31 22:09 WBC 9.59 (4.8-10.8) K/uL RBC 4.13 L (4.2-5.4) M/uL Hgb 11.0 L (12.0-16.0) g/dL Hct 34.6 L (37-47) % MCV 83.8 (80-100) fL MCH 26.6 (25-34) pg MCHC 31.8 L (32-36) g/dL RDW Std Deviation 54.2 H (36.4-46.3) fL RDW Coeff of Justa 17.6 H (11.5-14.5) % Plt Count 182 (130-400) K/uL MPV 9.7 (7.4-10.4) fL Immature Gran % (Auto) 0.2 % Neut % (Auto) 89.0 % Lymph % (Auto) 4.7 % Moody % (Auto) 5.6 % Eos % (Auto) 0.3 % Baso % (Auto) 0.2 % Immature Gran # (Auto) 0.02 (0.00-0.02) K/uL Neut # (Auto) 8.53 H (1.4-6.5) K/uL Lymph # (Auto) 0.45 L (1.2-3.4) K/uL Moody # (Auto) 0.54 (0.11-0.59) K/uL Eos # (Auto) 0.03 (0-0.5) K/uL Baso # (Auto) 0.02 (0-0.2) K/uL Hypochromasia Present Sodium 139 (136-145) mmol/L Potassium 3.6 (3.5-5.1) mmol/L Chloride 109 H (98-107) mmol/L Carbon Dioxide 20 L (21-32) mmol/L Anion Gap 10.0 (3-11) BUN 17 (7-18) mg/dl Creatinine 0.92 (0.6-1.2) mg/dl Est Cr Clr Drug Dosing 40.9 ml/min Est GFR ( Amer) 65.3 Est GFR (Non-Af Amer) 56.4 BUN/Creatinine Ratio 18.4 (10-20) Glucose 143 H (70-99) mg/dl Calcium 8.3 L (8.5-10.1) mg/dl Magnesium 2.1 (1.8-2.4) mg/dl Total Bilirubin 0.3 (0.2-1) mg/dl AST 15 (15-37) U/L ALT 27 (12-78) U/L Alkaline Phosphatase 54 (45-117) U/L Troponin I 0.042 (0-0.045) ng/ml Total Protein 6.8 (6.4-8.2) gm/dl Albumin 2.6 L (3.4-5.0) gm/dl Globulin 4.2 H (2.5-4.0) gm/dl Albumin/Globulin Ratio 0.6 L (0.9-2) TSH 3.140 (0.300-4.500) uIu/ml ECG Additional Comments: The study shows NSR with occasional narrow complex ectopic beats, ?PACs ?junctional. QRS=94, URj=862, no acute ischemic changes Code Status & VTE Plan Code Status FULL PG Care Time/CCT Total # of Minutes Spent Total Time Spent with Patient: Total time spent is greater than 50% in coordination of care (as documented) at patient's floor/unit and/or counseling patient: Coding Level of Care Code 49409 OBS Care - Level 3 Diagnoses Syncope R55 Syncope type: unspecified Epigastric abdominal pain R10.13 Pneumonia J18.9 Laterality: left Lung location: lower lobe of lung Pneumonia type: due to unspecified organism COVID-19 U07.1 HTN (hypertension) I10 Hypertension type: essential hypertension Asthma J45.909 Asthma severity: unspecified severity Asthma complication type: uncomplicated Asthma persistence: unspecified Atrial fibrillation I48.0 Atrial fibrillation type: paroxysmal (1) Syncope Syncope type: unspecified Qualified Code(s): R55 - Syncope and collapse (2) Pneumonia Laterality: left Lung location: lower lobe of lung Pneumonia type: due to unspecified organism Qualified Code(s): J18.9 - Pneumonia, unspecified organism (3) HTN (hypertension) Hypertension type: essential hypertension Qualified Code(s): I10 - Essential (primary) hypertension (4) Asthma Asthma severity: unspecified severity Asthma complication type: uncomplicated Asthma persistence: unspecified Qualified Code(s): J45.909 - Unspecified ast hma, uncomplicated (5) Atrial fibrillation Atrial fibrillation type: paroxysmal Qualified Code(s): I48.0 - Paroxysmal atrial fibrillation
[2019-08-24] MEDS ORDERED: metroNIDAZOLE 500 MG TAB PO SCH
[2019-08-24] MEDS ORDERED: ONDANSETRON INJ 2 MG/ML 2 ML VIAL IV PRN (02:50)
[2019-08-24] MEDS ORDERED: ACETAMINOPHEN 325 MG TAB PO PRN (02:50)
[2019-08-24] MEDS ORDERED: ALBUTEROL HFA 8 GM INHALER INH PRN (02:50)
[2019-08-24] MEDS ORDERED: CETIRIZINE HCL 10 MG TABLET PO PRN (02:50)
[2019-08-24] MEDS ORDERED: LACTATED RINGER'S 1,000 ML IV SCH (03:00)
[2019-08-24] MEDS ORDERED: ARTIFICIAL TEARS OP OINT 3.5 GM TUBE OP PRN (03:10)
[2019-08-24] MEDS ORDERED: ARTIFICIAL TEARS OP PRN (03:15)
[2019-08-24 04:26] LABS: Appearance Urine Clear (Clear); Bilirubin Urine Negative (Negative); Blood Urine Negative (Negative); Color Urine Yellow; Glucose Urine UA Negative (Negative); Ketones Urine Negative (Negative); Leukocyte Esterase Urine Negative (Negative); Nitrite Urine Negative (Negative); Protein Urine Negative (Negative); Specific Gravity Urine 1.011 (1.000-1.030); Urobilinogen Urine Negative (Negative)
[2019-08-24 08:02] LABS: Hemoglobin 10.4 g/dL (12.0-16.0); Mean Corpuscular Hemoglobin 26.1 pg (25-34); Mean Corpuscular Hgb Conc 31.5 g/dL (32-36); Mean Corpuscular Volume 82.9 fL (80-100); Mean Platelet Volume 9.8 fL (7.4-10.4); Platelet Count 191 K/uL (130-400); RDW Coefficient of Variation 17.7 % (11.5-14.5); RDW Standard Deviation 53.7 fL (36.4-46.3); Red Blood Count 3.98 M/uL (4.2-5.4); White Blood Count 5.79 K/uL (4.8-10.8)
[2019-08-24 08:35] LABS: Basophils # (auto) 0.01 K/uL (0-0.2); Basophils % (auto) 0.2 %; Giant Platelets 1+; Immature Granulocytes # (auto) 0.01 K/uL (0.00-0.02); Immature Granulocytes % (auto) 0.2 %; Lymphocytes # (auto) 0.67 K/uL (1.2-3.4); Lymphocytes % (auto) 11.6 %; Monocytes # (auto) 0.29 K/uL (0.11-0.59); Neutrophils # (auto) 4.81 K/uL (1.4-6.5); Ovalocytes 1+
[2019-08-24] MEDS ORDERED: CELECOXIB 100 MG CAP PO SCH (09:00)
[2019-08-24] MEDS ORDERED: METOPROLOL SUCC 25MG EXT REL TAB PO SCH (09:00)
[2019-08-24] MEDS ORDERED: APIXABAN 5 MG TABLET PO SCH (09:00)
[2019-08-24] MEDS ORDERED: TOPIRAMATE 50 MG TAB PO SCH (09:00)
[2019-08-24] MEDS ORDERED: PANTOprazole 40 MG TAB PO SCH (09:00)
[2019-08-24] MEDS ORDERED: OXYBUTYNIN CHLORIDE 5 MG TAB PO SCH (09:00)
[2019-08-24] MEDS ORDERED: predniSONE 20 MG TAB PO SCH (09:00)
[2019-08-24 09:44] LABS: BUN Creatinine Ratio 21.8 (10-20); Calcium 8.2 mg/dl (8.5-10.1); Creatinine Clr Calc Pharmacy 55.5 ml/min; Est GFR (African American) 91.8; Est GFR (Non-African American) 79.2; Potassium 3.7 mmol/L (3.5-5.1)
[2019-08-24 09:47] LABS: Troponin I 0.018 ng/ml (0-0.045)
[2019-08-24] MEDS ORDERED: LORazepam 0.5 MG TAB PO STA (12:24)
[2019-08-24] MEDS ORDERED: CEFDINIR 300 MG CAP PO STA (16:06)
[2019-08-24] MEDS ORDERED: metroNIDAZOLE 500 MG TAB PO STA ×2 (16:06→17:10)
--- NOTE | 2019-08-24 16:37 | Discharge Summary ---
Date of Service date of admission - August 23, 2019 date of discharge - August 24, 2019 Admission HPI Per Admitting Provider Roya Robert is an 84yo C female presenting with Syncope. Patient developed URI symptoms on AUGUST 07 to include chest discomfort with deep breathing, fatigue. She was diagnosed with COVID-19 on AUGUST 10. She denies fevers/chills/cough/SOB/chest pain/loss of taste or smell for at least one week. She reports never developing a fever or cough during the course of her illness. She reports being cleared from quarantine. She was seen in the ER today with complaint of acute onset of severe epigastric pain which lasted approximately 5 to 8 minutes with radiation to the back. She had a CXR with a left lower lung infiltrate consistent with PNA. Gallbladder ultrasound with gallstones, no evidence of acute cholecystitis. CT of the abdomen revealed gallstones, constipation, buttock hematoma. She was prescribed Levaquin for her PNA and sent home. Patient reports that she developed nausea after taking the Levaquin on an empty stomach. She did not eat or drink much during the day. She was sitting in a chair when she had a syncopal event. She got up and walked to her bathroom and sat on the commode where she had a second syncopal event. She denies CP/palpitations/SOB/cough/numbness/weakness/seizure like activity preceding or following the event. Is not sure if she experienced a prodrome. EMS was called and patient was having a difficult time ambulating due to weakness and had a near syncopal event while trying to ambulate. Presently she is complaining of feeling of fullness in her ears and head. No additional complaints at this time. She reports no recurrence of her abdominal pain. ER Course: Zofran 4mg IV, NSS x 500 Principal Diagnosis syncope, suspect vasovagal etiology; in setting of COVID-19 infection Discharge Exam Constitutional + well hydrated; no acute distress and no altered mental status Eyes + anicteric sclerae ENMT external ear and nose normal, oropharynx normal Respiratory no respiratory distress Auscultation: + rales (b/l bases); no wheezes Cardiovascular Rate/Rhythm: regular rate and regular rhythm Heart Sounds: normal S1, normal S2 and + murmur (2/6 holosystolic RUSB) Vessels: posterior tibial pulses present and dorsalis pedis pulses present; no JVD Extremities: no edema Gastrointestinal (Abdomen) Inspection/Auscultation: normal bowel sounds; abdomen not distended Percussion/Palpation: + abdomen tender (minimal - high epigastric region ) and abdomen soft; no guarding, abdomen not rigid and no hepatosplenomegaly Skin no rashes, warm and dry Psychiatric A+Ox3, euthymic affect Discharge Data Allergies Allergy/AdvReac Type Severity Reaction Status Date / Time Penicillins Allergy Mild swelling Verified 08/23/19 13:[address] abd/pelvis - IMPRESSION: 1. Chronic sigmoid diverticulosis. 2. Several small gallstones. 3. Right gluteal hematoma posterior to the right iliac wing measuring 8 x 6 cm. 4. Patchy bibasilar parenchymal infiltrative change. 5. Increased colonic fecal load consistent with a component of fecal stasis. 2. RUQ ultrasound - IMPRESSION: 1. Several small gallstones. 2. Mild prominence of the extra hepatic common bile duct at 8.5 mm. 3. Study is otherwise unremarkable. 3. echocardiogram - * severe aortic stenosis of bioprosthetic aortic valve * valve area 0.6cm^2 * EF 60-65% * mod-severe LVH Hospital Course (1) Syncope: Syncopal event x 2, near syncope x 1 prior to her brief hospital stay. This was in the setting of recent abdominal pain, nausea, poor oral intake on day of events, antibiotic usage that gave her nausea, COVID-19 infection, etc. Suspect vasovagal in etiology. I cannot exclude that her severe contributed but less likely. Telemetry was normal during her stay. Troponins were negative. She had no further dizziness, presyncope or syncope. (2) Epigastric abdominal pain: Suspect 2nd to episode of biliary colic from gallstones. CT abd/pelvis and u/s both with gallstones. CBD was mildly dilated at 8.5mm on u/s. LFTs and lipase were normal. I attempted to secure an MRCP and/or HIDA because of the gallstones and her symptoms but her COVID-19 status precluded her from obtaining these. As a precautionary measure I recommended the following at discharge - 1. course of antibiotics to cover for any early cholecystitis (omnicef with flagyl x 10 days each) 2. low fat diet 3. close f/u with PCP; likely to need MRCP and/or HIDA as outpatient along with general surgery referral; PCP made aware of her CT findings/ultrasound findinigs Pain was largely resolved except for some scant discomfort in the epigastrium on day of discharge. (3) Pneumonia: CT with b/l infiltrates. This is all likely due to COVID-19 itself. Cannot exclude bacterial superinfection but less likely. Patient did not tolerate levaquin at home. This will be stopped, and she was changed to omnicef. O2 sats were normal during her stay. (4) COVID-19: Patient developed symptoms of COVID-19 on August 07. Tested positive on August 10. Patient had temp of 37.8 on the AM of 08/24/2019. Due to the fever I recommended to patient that she continue isolation at home. She can stop isolation once she has had no fever for 3 days at minimum. This recommendation was passed on to her family as well. (5) HTN (hypertension): Blood pressure well controlled on metoprolol. Avoid afterload reduction given her severe . (6) Asthma: No sob or wheeze. Adequate oxygenation on room air. Continue Albuterol HFA PRN. Recent steroid taper has been completed. (7) Atrial fibrillation: Patient remained in NSR during the stay. Continue Metoprolol and apixaban. (8) S/P AVR: 15+ years ago now with severe of valve will need f/u with Dr White from [facility] [place] cardiology to determine next steps (9) Severe aortic stenosis: limited echo with severe (valve area 0.6cm^2) but preserved EF 65% f/u with Dr White as outpatient for management and/or referral to tertiary care center for this (10) Traumatic hematoma of buttock: small, right buttock no symptoms from such Hemoglobin remained stable during the stay risks of stopping the apixaban are outweighed by the benefits especially in the setting of acute COVID-19 infection Total Time Total Time Spent Total Time Spent (In Minutes): 45 Total Time Includes: Examination of the Patient, Discharge Planning, Medication Reconciliation and Communication With Other Providers Discharge Plan Discharge Items Patient Disposition: Home - Self-Care Reason For Visit: SYNCOPE Discharge Diagnosis: 1. syncope (passing out spell) - likely due to "vasovagal" in the setting of antibiotic usage, empty stomach, recovery from COVID-19, etc 2. COVID-19 infection 3. pneumonia likely due to COVID-19 4. gallstones - concern that abdominal pain episode was due to such 5. small bruise/hematoma in the right buttock region - blood counts have remained stable over the last 36 hours; ok to continue your apixaban blood thinner Activity: As commented below Activity Comment: GRADUALLY increase activities over the next 7-10 days Bathing: No limitations Exercise/Sports: Wait until after follow-up appointment Driving/Machine Use: no driving until cleared by your family doctor Non-emergency contact: Primary Care Provider Call non-emergency contact if: you have any medication questions, your symptoms worsen, your pain is worsening, your pain is unusual for you and your pain is concerning for you Follow-up/Referrals: Helen Moreno MD [Primary Care Provider] - (please schedule a "virtual" (telehealth) visit with Dr Moreno within 3 days ) Diet: Low Fat Addtl Attending Provider Instructions: You were admitted to the hospital for the problems listed above in "discharge diagnoses." Your episodes of passing out were likely "vasovagal" in etiology which is the most common cause of passing out/fainting. Your nausea, antibiotics on empty stomach, and recovering from COVID-19 likely led to the passing out. I am waiting on your echocardiogram to check your aortic valve that was replaced years ago. Your imaging shows pneumonia. This is likely due to COVID-19 itself. Bacterial pneumonia is also possible but less likely. Your imaging also shows gallstones. I am concerned that your abdominal pain yesterday was in fact from a gall bladder attack. Recommendations - 1. low fat diet indefinitely as a diet high in fat will precipitate gall bladder attacks 2. in the event your gall bladder is sick please take the following antibiotics - * cefdinir 300mg twice daily; start tomorrow MORNING * metronidazole 500mg three times daily; start TONIGHT at bedtime * do not drink alcohol with antibiotics 3. you may need additional gall bladder tests. In order to have these tests you will need to be rechecked for COVID-19 and the test come back negative. I spoke to Dr Moreno who is aware of this. You potentially may need referral to surgery and/or a GI doctor for the gall bladder. 4. the antibiotics for the gall bladder will also cover for a bacterial pneumonia, if present 5. plenty of fluids over the next few days as you recover from COVID-19 6. I believe you are still contagious from COVID-19; you had a documented fever of about 100 degrees at 2am this morning; you will need to have AT LEAST 3 days of no fever (all temps <100) before stopping isolation at home; this is for your safety and the safety of those around you 7. for cough/shortness of breath please use your albuterol inhaler as needed every 4 hours; may also use [id number] mucinex up to twice a day as needed 8. continue your apixaban blood thinner Follow-up - please schedule a virtual visit with Dr Moreno within 3 days Return to [facility] if - * you have worsening shortness of breath * you have chest pains * you have recurrent abdominal pain episodes * you have nausea and/or vomiting * you have episodes of passing out again * any other concerns Addtl Machine Technician Provider Instructions: Home Isolation COVID-19 Instructions The following information about Home Isolation is from the CDC Website: https://www.cdc.gov/coronavirus/2019-ncov/hcp/vayuhmuy-mlavruq-ligmlj.html COVID-19 instructions: Stay home except to get medical care People who are mildly ill with COVID-19 are able to isolate at home during their illness. You should restrict activities outside your home, except for getting medical care. Do not go to work, school, or public areas. Avoid using public transportation, ride-sharing, or taxis. Separate yourself from other people and animals in your home People: As much as possible, you should stay in a specific room and away from other people in your home. Also, you should use a separate bathroom, if available. Animals: You should restrict contact with pets and other animals while you are sick with COVID-19, just like you would around other people. Although there have not been reports of pets or other animals becoming sick with COVID-19, it is still recommended that people sick with COVID-19 limit contact with animals until more information is known about the virus. When possible, have another member of your household care for your animals while you are sick. If you are sick with COVID-19, avoid contact with your pet, including petting, snuggling, being kissed or licked, and sharing food. If you must care for your pet or be around animals while you are sick, wash your hands before and after you interact with pets and wear a face mask. Call ahead before visiting your doctor If you have a medical appointment, call the healthcare provider and tell them that you have or may have COVID-19. This will help the healthcare providers office take steps to keep other people from getting infected or exposed. Wear a face mask You should wear a face mask when you are around other people (e.g., sharing a room or vehicle) or pets and before you enter a healthcare providers office. If you are not able to wear a face mask (for example, because it causes trouble breathing), then people who live with you should not stay in the same room with you, or they should wear a face mask if they enter your room. Cover your coughs and sneezes Cover your mouth and nose with a tissue when you cough or sneeze. Throw used tissues in a lined trash can. Immediately wash your hands with soap and water for at least 20 seconds or, if soap and water are not available, clean your hands with an alcohol-based hand emergency medicine specialist that contains at least 60% alcohol. Clean your hands often Wash your hands often with soap and water for at least 20 seconds, especially after blowing your nose, coughing, or sneezing; going to the bathroom; and before eating or preparing food. If soap and water are not readily available, use an alcohol-based hand emergency medicine specialist with at least 60% alcohol, covering all surfaces of your hands and rubbing them together until they feel dry. Soap and water are the best option if hands are visibly dirty. Avoid touching your eyes, nose, and mouth with unwashed hands. Avoid sharing personal household items You should not share dishes, drinking glasses, cups, eating utensils, towels, or bedding with other people or pets in your home. After using these items, they should be washed thoroughly with soap and water. Clean all high-touch surfaces everyday High touch surfaces include counters, tabletops, doorknobs, bathroom fixtures, toilets, phones, keyboards, tablets, and bedside tables. Also, clean any surfaces that may have blood, stool, or body fluids on them. Use a household cleaning spray or wipe, according to the label instructions. Labels contain instructions for safe and effective use of the cleaning product including precautions you should take when applying the product, such as wearing gloves and making sure you have good ventilation during use of the product. Monitor your symptoms Seek prompt medical attention if your illness is worsening (e.g., difficulty breathing).Beforeseeking care, call your healthcare provider and tell them that you have, or are being evaluated for, COVID-19. Put on a face mask before you enter the facility. These steps will help the healthcare providers office to keep other people in the office or waiting room from getting infected or exposed. Ask your healthcare provider to call the local or state health department. Persons who are placed under active monitoring or facilitated self- monitoring should follow instructions provided by their local health department or occupational health professionals, as appropriate. When working with your local health department check their available hours. If you have a medical emergency and need to call 911, notify the dispatch personnel that you have, or are being evaluated for COVID-19. If possible, put on a face mask before emergency medical services arrive. Discontinuing home isolation Patients with confirmed COVID-19 should remain under home isolation precautions until the risk of secondary transmission to others is thought to be low. The decision to discontinue home isolation precautions should be made on a [id number] basis, in consultation with healthcare providers and [facility] and [facility] health departments. Pending Studies at Discharge: Yes Studies:: echocardiogram to evaluate your aortic valve Stand-Alone Forms: [facility], Smoking Cessation Medications and DC Order Prescriptions: New cefdinir 300 mg capsule 300 mg PO BID 9 Days Qty: 18 RF: 0 metronidazole [Flagyl] 500 mg tablet 500 mg PO TID 10 Days Qty: 30 RF: 0 ondansetron 4 mg tablet,disintegrating 4 mg PO Q6H PRN (Reason: nausea and vomiting) Qty: 14 RF: 0 Continued oxybutynin chloride 5 mg tablet 5 mg PO BID Qty: 60 RF: 5 apixaban 5 mg tablet 5 mg PO BID Qty: 90 RF: 3 albuterol sulfate 1.25 mg/3 mL solution for nebulization 1.25 mg INH QID PRN (Reason: shortness of breath or wheezing) Qty: 75 RF: 3 (DME) AeroEclipse II Nebulizer Mis See Rx Instructions .ROUTE .MEDSUPPLY Qty: 1 RF: 0 dextran 70-hypromellose 0.1-0.3 % drops 1 drops OP UD RF: 0 krill oil 500 mg capsule 500 mg PO DAILY RF: 0 metoprolol succinate 25 mg tablet extended release 24 hr 25 mg PO DAILY Qty: 90 RF: 0 cholecalciferol (vitamin D3) 25 mcg (1,000 unit) tablet 1,000 units PO DAILY RF: 0 white petrolatum-mineral oil 57.3-42.5 % ointment 1 appln OP UD RF: 0 albuterol sulfate 90 mcg/actuation HFA aerosol inhaler 1 - 2 puffs inhalation UD PRN (Reason: shortness of breath or wheezing) RF: 0 cetirizine 10 mg tablet 5 mg PO DAILY PRN (Reason: Itching) RF: 0 topiramate 50 mg tablet 50 mg PO BID RF: 0 sumatriptan succinate 100 mg tablet See Rx Instructions .ROUTE .COMPLEX PRN (Reason: Migraine Headache) RF: 0 omeprazole 20 mg capsule,delayed release(DR/EC) 20 mg PO DAILY RF: 0 celecoxib 100 mg capsule 100 mg PO BID RF: 0 Discontinued prednisone 20 mg tablet 20 mg PO .COMPLEX Qty: 18 RF: 0 levofloxacin [Levaquin] 750 mg tablet 750 mg PO DAILY 4 Days Qty: 4 RF: 0 Discharge Orders: Discharge Order (Routine); Ordered 08/24/19 Ordered By: Ishaan Chilel/Other Patient Handouts: 2019-nCoV, COVID-19 Prevention, COVID-19 Home Care, COVID Face Mask Steps, Pneumonia, COVID-19 Make Face Mas Admission Data Admit Date/Time: 08/23/19 22:53 Attending Provider: Ishaan Knowles Admit Provider: Khadijah Baker Primary Care Provider: Helen Moreno Other Providers: Khadijah Baker Other Interventions: Discharge Summary Assessment (RN) Last Done: 08/24/19 17:04 DC Date/Time DO NOT enter until pt leaves facility: 08/24/19 17:45 Coding Level of Care Code 33816 OBS Care - Discharge Diagnoses Syncope R55 Syncope type: unspecified Epigastric abdominal pain R10.13 Pneumonia J18.9 Laterality: left Lung location: lower lobe of lung Pneumonia type: due to unspecified organism COVID-19 U07.1 HTN (hypertension) I10 Hypertension type: essential hypertension Asthma J45.909 Asthma complication type: uncomplicated Asthma persistence: unspecified Asthma severity: unspecified severity Atrial fibrillation I48.0 Atrial fibrillation type: paroxysmal S/P AVR Z95.2 Severe aortic stenosis I35.0 Traumatic hematoma of buttock S30.0XXA
--- NOTE | 2019-08-24 22:20 | Electrocardiogram Report ---
Test Reason : Blood Pressure : / mmHG Vent. Rate : 101 BPM Atrial Rate : 102 BPM P-R Int : 000 ms QRS Dur : 094 ms QT Int : 342 ms P-R-T Axes : 000 -37 068 degrees QTc Int : 443 ms Poor data quality, interpretation may be adversely affected Sinus tachycardia with frequent Premature atrial complexes Left axis deviation Moderate voltage criteria for LVH, may be normal variant Abnormal ECG When compared with ECG of 23-AUG-2019 11:29, No significant change Confirmed by Deonte Schuster ([id number]) on 08/24/2019 10:20:13 PM Referred By: REFERRED SELF Confirmed By:Deonte Schuster
[2019-08-25] MEDS ORDERED: levoFLOXacin 750 MG TAB PO SCH (17:00)
== END 2019-08-24 17:45 | disposition home or self-care (01) ==
LOC: ED 20:02 → 2S 20:02 → SUATTDRO 22:53 → 2S 08-24 02:05

== ENCOUNTER 2020-05-30 09:18 | Observation (INO) ==
--- NOTE | 2020-05-30 09:41 | Emergency Department Note ---
Impression & Plan Elevated troponin, H/O aortic valve replacement, CHF (congestive heart failure), Pleural effusion, Aortic stenosis ED Provider Note NAME: JYOTI PEGUERO AGE: 85 SEX: F : 1935 ARRIVES VIA: Walk-In INFORMANT: Patient ED PROVIDER(S): Alf Sims DO CHIEF COMPLAINT: Shortness of breath HPI: Patient is an 85-year-old female with a past medical history of depression, anxiety, asthma, aortic valve replacement with severe aortic stenosis who set to be evaluated for possible TAVR presents the ER for shortness of breath. Patient notes that she has been getting more short of breath over the past week since this past Saturday. It has been gradually getting worse. Significantly worse with up moving around. She denies any swelling of her legs. No cough or runny nose. No chest pain or belly pain. No nausea vomiting or diarrhea. No dysuria urgency or frequency. She has been off Eliquis for a total of 5 days due to epistaxis and nasal surgery as well. She had this done this past week as well. She believes her shortness of breath secondary to her asthma as symptoms started after new couch which she can smell and believes that it is irritating her symptoms. ROS: See above HPI for pertinent positives & negatives. A total of 10 systems reviewed and were otherwise negative. PAST MEDICAL HISTORY:See Below PAST SURGICAL HISTORY:See Below FAMILY HISTORY:See Below SOCIAL HISTORY:See Below HOME MEDICATIONS:See Below ALLERGIES:See Below VITALS:See Below PHYSICAL EXAMINATION: GENERAL: Sitting up in bed, alert, well appearing, well nourished, no distress, non-toxic EYE EXAM: normal conjunctiva. PERRL and EOM's grossly intact. OROPHARYNX: no exudate, no erythema, lips, buccal mucosa, and tongue normal and mucous membranes are moist NECK: supple, no nuchal rigidity, no adenopathy, non-tender LUNGS: Crackles at bilateral bases. Normal chest wall mechanics HEART: +NEETU, S1 normal and S2 normal ABDOMEN: abdomen soft, non-tender, normo-active bowel sounds, no masses, no rebound or guarding. UPPER EXTREMITIES: upper extremities are grossly normal. LOWER EXTREMITIES: No pitting edema. Calves are equal bilateral NEURO EXAM: Normal sensorium, cranial nerves II-XII grossly intact, normal speech, no gross weakness of arms, no gross weakness of legs. MEDICAL DECISION MAKING: Patient is an 85-year-old female with a past medical history of aortic stenosis with a valve replacement nearly 16 years ago that presents the ER for worsening shortness of breath. IV was established blood work was obtained. She was dy spneic with conversation. Labs show no significant leukocytosis but a mild anemia at 9.9 consistent with previous. BMP with a slightly elevated chloride. Troponin was elevated at 0.056 proBNP was elevated at 6000. Lipase was normal. Covid was negative. Chest x-ray with worsening bilateral pleural effusions. EKG was nondiagnostic. Patient was updated bedside. Discussed with hospitalist for further evaluation. She was given aspirin while in the ER. Triage Nursing notes reviewed. Limited review of prior medical records performed Vital Signs: reviewed and remarkable for HTN Differential diagnosis: Differential diagnoses includes but is not limited to pneumonia, bronchitis, COPD/Asthma exacerbation, pneumothorax, pulmonary embolism, congestive heart failure, acute coronary syndrome ER treatment provided: See below Diagnostics interpreted by me: ECG: Sinus rhythm rate of [address] wave changes in the high lateral leads Poor baseline in the anterior leads QTC 477 Cardiac Monitoring: An order was placed for continuous cardiac monitoring. The monitor shows a rate of 85 with sinus rhythm. Laboratory studies: As stated above and show below. Imaging studies: Portable AP upright 1 view of the chest shows bilateral pleural effusions Consultation(s): Discussed with Dr. Ishaan Chan for further evaluation Procedures: none Critical Care: None Past Med/Surg History Medical History (Updated 05/30/20 @ 15:45 by Alf Sims DO) Acute sinusitis Anemia Anxiety and depression Aortic valve disease S/P bovine pericardial tissue valve in 2002. September 2019 echo revealed severe stenosis of the bioprosthesis, referred to CT surgery for TAVR. Unfortunately, due to finding of mass in buttocks and lung lesions on pre-op CT, surgery postponed until mass etiology identified. Patient refusing biopsy. Asthma NO RECENT PROBLEMS "DOES NOT USE INHALER" Atrial fibrillation FOLLOWS WITH DR. JESUS Chronic anticoagulation Classic migraine with aura Stable and improved on Topamax, seen by Dr Salamanca 03/30/20. COVID-19 Epistaxis Esophageal motility disorder Eustachian tube dysfunction GERD (gastroesophageal reflux disease) Controlled with PPI. History of COVID-04 AUG 2019 (TESTED NEAR [place] AT A TENT) SYMPTOMS>FATIGUE, CONGESTION, FEVER History of meningioma OF BRAIN Hx of gastric ulcer Hx of vertigo Hyperlipidemia Osteoarthritis Sjogrens syndrome TIA (transient ischemic attack) ? DATE Urinary, incontinence, stress female Surgical History (Updated 05/30/20 @ 15:45 by Alf Sims DO) H/O aortic valve replacement 2003 DONE AT [facility] History of appendectomy History of brain surgery Meningioma excision, 2009 AT [facility] History of cardiac cath LAST ONE 2019 AT [facility] for pre-op for TAVR. History of cataract surgery RT/LEFT History of colonoscopy History of knee replacement History of total knee replacement RT/LEFT Family History Father Family history of diabetes mellitus Grandmother (Paternal) Family history of diabetes mellitus Other Allergies Asthma Heart disease No family history of adverse response to anesthesia No family history of bleeding disorder Stroke Denies family history of Ovarian cancer Prostate cancer Hearing loss Myocardial infarction Breast cancer Colorectal cancer Cancer Hypertension Social History Smoking Status: Never smoker Second Hand Exposure: No; Hx Alcohol Use: Yes Hx Substance Use: No Preferred Language: Czech Communication Ability: Effective Academic Manager Required: No Beliefs That Will Affect Care: None marital status: / Current Living Situation: Alone current occupational status: retired How many Children do You have: 5 Feels Safe at Home: Yes caffeine: Yes Dental Care, Regularly: Yes Physical Activity Frequency: Daily Seatbelt Use: always Sunscreen Use: No Assistive Devices: Glasses Allergies Allergies Allergy/AdvReac Type Severity Reaction Status Date / Time adhesive tape Allergy Intermediate BURN SKIN Verified 05/30/20 10:07 Penicillins Allergy Intermediate swelling Verified 05/30/20 10:07 Home Meds Home Medications Medication Instructions Recorded Confirmed dextran 70-hypromellose 0.1 %-0.3 1 drops OP UD ml 08/22/18 05/30/20 % eye drops krill oil 500 mg capsule 500 mg PO QAM cap 09/21/18 05/30/20 cholecalciferol (vitamin D3) 25 1,000 units PO QAM tab 01/25/19 05/30/20 mcg (1,000 unit) tablet white petrolatum-mineral oil 57.3 1 appln OP HS gm 01/25/19 05/30/20 %-42.5 % eye ointment omeprazole 20 mg PO DAILY 08/23/19 05/30/20 Eliquis 5 mg PO BID 05/27/20 05/30/20 metoprolol succinate [Toprol XL] 25 mg PO DAILY 05/27/20 05/30/20 sumatriptan succinate [Imitrex] See Rx Instructions .ROUTE 05/27/20 05/30/20 .COMPLEX PRN topiramate [Topamax] 50 mg PO BID 05/27/20 05/30/20 celecoxib 100 mg PO BID 05/30/20 05/30/20 mv,Ca,min-iron [id number]-UC-hkhtiq 1 tab PO DAILY 05/30/20 05/30/20 [Hair,Skin and Nails] Previous Rx's Medication Instructions Recorded oxybutynin chloride 5 mg tablet 5 mg PO BID #60 tab 11/03/19 Results & Data (ED) Vital Signs Vital Signs - 24 hr 05/30/20 09:23 05/30/20 09:57 05/30/20 11:41 Temperature 36.4 C L Temperature Source Temporal Artery Scan Pulse Rate 80 Pulse Rate [Right Finger] 85 Pulse Rhythm Regular Pulse Rhythm [Right Finger] Regular Pulse Strength Normal Respiratory Rate 24 Respiratory Effort / Characteristics Non-Labored Spontaneous Non-Labored Respiratory Depth Normal Normal Normal Respiratory Pattern Regular Regular Regular Blood Pressure 166/61 H Blood Pressure [Left Arm] 135/77 Blood Pressure Mean 96 Blood Pressure Mean [Left Arm] 96 Blood Pressure Position Sitting Blood Pressure Position [Left Arm] Semi-fowlers Pulse Oximetry 96 95 Oxygen Delivery Method Room Air Room Air Room Air Oxygen Flow Rate Sepsis Recent Fever Within 48 Hours No Sepsis New/Unexplained Change in Mental Status No Sepsis Action Taken by Nursing No Action Required 05/30/20 11:42 05/30/20 13:00 05/30/20 14:53 Temperature Temperature Source Pulse Rate Pulse Rate [Right Finger] 77 79 Pulse Rhythm Pulse Rhythm [Right Finger] Regular Pulse Strength Respiratory Rate 20 18 Respiratory Effort / Characteristics Non-Labored Spontaneous Non-Labored Spontaneous Respiratory Depth Normal Respiratory Pattern Blood Pressure Blood Pressure [Left Arm] 120/77 Blood Pressure Mean Blood Pressure Mean [Left Arm] 91 Blood Pressure Position Blood Pressure Position [Left Arm] Pulse Oximetry 94 94 Oxygen Delivery Method Room Air Room Air Room Air Oxygen Flow Rate 0 Sepsis Recent Fever Within 48 Hours Sepsis New/Unexplained Change in Mental Status Sepsis Action Taken by Nursing 05/30/20 15:22 Temperature Temperature Source Pulse Rate 99 H Pulse Rate [Right Finger] Pulse Rhythm Pulse Rhythm [Right Finger] Pulse Strength Respiratory Rate 20 Respiratory Effort / Characteristics Respiratory Depth Respiratory Pattern Blood Pressure 160/62 H Blood Pressure [Left Arm] Blood Pressure Mean Blood Pressure Mean [Left Arm] Blood Pressure Position Blood Pressure Position [Left Arm] Pulse Oximetry Oxygen Delivery Method Room Air Oxygen Flow Rate Sepsis Recent Fever Within 48 Hours Sepsis New/Unexplained Change in Mental Status Sepsis Action Taken by Nursing Laboratory Data Result diagrams: 05/30/20 09:50 05/30/20 09:50 Lab Results 05/30/20 05/30/20 05/30/20 Range/Units 09:50 09:50 09:50 WBC 5.57 (4.8-10.8) K/uL RBC 4.04 L (4.2-5.4) M/uL Hgb 9.9 L (12.0-16.0) g/dL Hct 31.3 L (37-47) % MCV 77.5 L (80-100) fL MCH 24.5 L (25-34) pg MCHC 31.6 L (32-36) g/dL RDW Std Deviation 52.8 H (36.4-46.3) fL RDW Coeff of Justa 18.7 H (11.5-14.5) % Plt Count 253 (130-400) K/uL MPV 9.5 (7.4-10.4) fL Immature Gran % (Auto) 0.2 % Neut % (Auto) 89.3 % Lymph % (Auto) 8.4 % [place] % (Auto) 1.4 % Eos % (Auto) 0.2 % Baso % (Auto) 0.5 % Neut # (Auto) 4.97 (1.4-6.5) K/uL Lymph # (Auto) 0.47 L (1.2-3.4) K/uL [place] # (Auto) 0.08 L (0.11-0.59) K/uL Eos # (Auto) 0.01 (0-0.5) K/uL Baso # (Auto) 0.03 (0-0.2) K/uL Immature Gran # (Auto) 0.01 (0.00-0.02) K/uL Sodium 144 (136-145) mmol/L Potassium 4.0 (3.5-5.1) mmol/L Chloride 115 H (98-107) mmol/L Carbon Dioxide 23 (21-32) mmol/L Anion Gap 6.0 (3-11) BUN 17 (7-18) mg/dl Creatinine 0.73 (0.6-1.2) mg/dl Est Cr Clr Drug Dosing Not Reportable Est GFR ( Amer) 85.8 Est GFR (Non-Af Amer) 74.1 BUN/Creatinine Ratio 23.5 H (10-20) Glucose 170 H (70-99) mg/dl Calcium 8.9 (8.5-10.1) mg/dl Total Bilirubin 0.3 (0.2-1) mg/dl AST 33 (15-37) U/L ALT 45 (12-78) U/L Alkaline Phosphatase 64 (45-117) U/L Troponin I 0.056 H* (0-0.045) ng/ml NT-Pro-B Natriuret Pep 6178 H (0-1800) pg/ml Total Protein 8.2 (6.4-8.2) gm/dl Albumin 3.7 (3.4-5.0) gm/dl Globulin 4.5 H (2.5-4.0) gm/dl Albumin/Globulin Ratio 0.8 L (0.9-2) Lipase 134 (73-393) U/L COVID-19 Eval Order SARS-CoV-2, RNA, NAAT (NEGATIVE) 05/30/20 05/30/20 Range/Units 13:30 13:30 WBC (4.8-10.8) K/uL RBC (4.2-5.4) M/uL Hgb (12.0-16.0) g/dL Hct (37-47) % MCV (80-100) fL MCH (25-34) pg MCHC (32-36) g/dL RDW Std Deviation (36.4-46.3) fL RDW Coeff of Justa (11.5-14.5) % Plt Count (130-400) K/uL MPV (7.4-10.4) fL Immature Gran % (Auto) % Neut % (Auto) % Lymph % (Auto) % [place] % (Auto) % Eos % (Auto) % Baso % (Auto) % Neut # (Auto) (1.4-6.5) K/uL Lymph # (Auto) (1.2-3.4) K/uL [place] # (Auto) (0.11-0.59) K/uL Eos # (Auto) (0-0.5) K/uL Baso # (Auto) (0-0.2) K/uL Immature Gran # (Auto) (0.00-0.02) K/uL Sodium (136-145) mmol/L Potassium (3.5-5.1) mmol/L Chloride (98-107) mmol/L Carbon Dioxide (21-32) mmol/L Anion Gap (3-11) BUN (7-18) mg/dl Creatinine (0.6-1.2) mg/dl Est Cr Clr Drug Dosing Est GFR ( Amer) Est GFR (Non-Af Amer) BUN/Creatinine Ratio (10-20) Glucose (70-99) mg/dl Calcium (8.5-10.1) mg/dl Total Bilirubin (0.2-1) mg/dl AST (15-37) U/L ALT (12-78) U/L Alkaline Phosphatase (45-117) U/L Troponin I (0-0.045) ng/ml NT-Pro-B Natriuret Pep (0-1800) pg/ml Total Protein (6.4-8.2) gm/dl Albumin (3.4-5.0) gm/dl Globulin (2.5-4.0) gm/dl Albumin/Globulin Ratio (0.9-2) Lipase (73-393) U/L COVID-19 Eval Order [facility]19 [facility] SARS-CoV-2, RNA, NAAT NEGATIVE (NEGATIVE) Administered Medications Discontinued Medications Albuterol (Albuterol 0.083% Nebu Soln 3 Ml Vial) 2.5 mg NEB NOW STA Stop: 05/30/20 10:31 Last Admin: 05/30/20 11:47 Dose: Not Given Documented by: [id number] Albuterol (Albut/Ipratrop 3mg/0.5mg Neb 3 Ml Vial) 3 ml NEB NOW STA Stop: 05/30/20 12:11 Last Admin: 05/30/20 14:52 Dose: 3 ml Documented by: [id number] Aspirin (Aspirin Chew 324 Mg) 324 mg PO NOW STA Stop: 05/30/20 10:47 Last Admin: 05/30/20 11:35 Dose: 324 mg Documented by: [id number] Discharge Plan Visit Data Chief Complaint: Shortness of Breath/Dyspnea Stated Complaint: SOB ED Provider: Alf Sims Discharge Problem: Elevated troponin, H/O aortic valve replacement, CHF (congestive heart failure), Pleural effusion, Aortic stenosis Patient Disposition: Admitted As Inpatient Discharge Instructions Interventions: ED Discharge Assessment Last Done: 05/30/20 15:22 Forms Stand Alone Forms: My StatSheet Prescriptions Prescriptions: No Action oxybutynin chloride 5 mg tablet 5 mg PO BID Qty: 60 RF: 5 dextran 70-hypromellose 0.1-0.3 % drops 1 drops OP UD RF: 0 krill oil 500 mg capsule 500 mg PO QAM RF: 0 cholecalciferol (vitamin D3) 25 mcg (1,000 unit) tablet 1,000 units PO QAM RF: 0 white petrolatum-mineral oil 57.3-42.5 % ointment 1 appln OP HS RF: 0 omeprazole 20 mg capsule,delayed release(DR/EC) 20 mg PO DAILY RF: 0 Hair,Skin and Nails 1 mg iron-66.7 mcg-1,000 mcg Tablet 1 tab PO DAILY RF: 0 celecoxib 100 mg capsule 100 mg PO BID RF: 0 sumatriptan succinate [Imitrex] 100 mg tablet See Rx Instructions .ROUTE .COMPLEX PRN (Reason: Migraine Headache) RF: 0 metoprolol succinate [Toprol XL] 25 mg tablet extended release 24 hr 25 mg PO DAILY RF: 0 topiramate [Topamax] 50 mg tablet 50 mg PO BID RF: 0 Eliquis 5 mg tablet 5 mg PO BID RF: 0 Referrals Referrals: Helen Moreno MD [Primary Care Provider] - Discharge Problem: CHF (congestive heart failure) Qualifiers: Heart failure type: unspecified Heart failure chronicity: unspecified Qualified Code(s): I50.9 - Heart failure, unspecified Aortic stenosis Qualifiers: Cardiac valve disease etiology: etiology unspecified Qualified Code(s): I35.0 - Nonrheumatic aortic (valve) stenosis
[2020-05-30 10:01] LABS: Basophils # (auto) 0.03 K/uL (0-0.2); Basophils % (auto) 0.5 %; Eosinophils # (auto) 0.01 K/uL (0-0.5); Eosinophils % (auto) 0.2 %; Hematocrit (blood only) 31.3 % (37-47); Hemoglobin 9.9 g/dL (12.0-16.0); Immature Granulocytes # (auto) 0.01 K/uL (0.00-0.02); Immature Granulocytes % (auto) 0.2 %; Lymphocytes # (auto) 0.47 K/uL (1.2-3.4); Lymphocytes % (auto) 8.4 %; Mean Corpuscular Hemoglobin 24.5 pg (25-34); Mean Corpuscular Hgb Conc 31.6 g/dL (32-36); Mean Corpuscular Volume 77.5 fL (80-100); Mean Platelet Volume 9.5 fL (7.4-10.4); Monocytes # (auto) 0.08 K/uL (0.11-0.59); Monocytes % (auto) 1.4 %; Neutrophils # (auto) 4.97 K/uL (1.4-6.5); Neutrophils % (auto) 89.3 %; Platelet Count 253 K/uL (130-400); RDW Coefficient of Variation 18.7 % (11.5-14.5); RDW Standard Deviation 52.8 fL (36.4-46.3); Red Blood Count 4.04 M/uL (4.2-5.4); White Blood Count 5.57 K/uL (4.8-10.8)
[2020-05-30 10:25] LABS: Alanine Aminotransferase 45 U/L (12-78); Albumin Level 3.7 gm/dl (3.4-5.0); Aspartate Aminotransferase 33 U/L (15-37); BUN Creatinine Ratio 23.5 (10-20); Blood Urea Nitrogen 17 mg/dl (7-18); Calcium 8.9 mg/dl (8.5-10.1); Carbon Dioxide 23 mmol/L (21-32); Chloride 115 mmol/L (98-107); Est GFR (African American) 85.8; Est GFR (Non-African American) 74.1; Glucose 170 mg/dl (70-99); Lipase 134 U/L (73-393); Sodium 144 mmol/L (136-145)
[2020-05-30] MEDS ORDERED: ALBUTEROL 0.083% NEBU SOLN 3 ML VIAL NEB STA (10:30)
[2020-05-30 10:43] LABS: Albumin Globulin Ratio 0.8 (0.9-2); Alkaline Phosphatase 64 U/L (45-117); Bilirubin,Total 0.3 mg/dl (0.2-1); Globulin 4.5 gm/dl (2.5-4.0); Total Protein 8.2 gm/dl (6.4-8.2); Troponin I 0.056 ng/ml (0-0.045)
[2020-05-30] MEDS ORDERED: ASPIRIN CHEW 324 MG PO STA (10:46)
--- NOTE | 2020-05-30 10:59 | XRay Report ---
SINGLE VIEW CHEST CLINICAL HISTORY: Atypical chest pain. FINDINGS: An AP, portable, upright chest radiograph is compared to study dated 08/23/2019. The examinat ion is degraded by portable technique and patient rotation. The patient is status post midline sterno amalia. The heart is enlarged noting atherosclerotic calcification of the thoracic aorta. There is pulm onary vascular congestion. There are small pleural effusions with bibasilar consolidation. No pneumot horax is seen. The skeletal structures are osteopenic. The bony thorax is grossly intact. IMPRESSION: 1. Cardiomegaly with pulmonary vascular congestion. 2. Pleural effusions with bibasilar consolidation. This could represent atelectasis and/or an infecti ous/inflammatory pneumonitis. Clinical correlation will be required and radiographic follow-up to res olution is recommended. ACT 112: Negative or not required by law. Electronically signed by: Damian Russo M.D. 05/30/2020 10:58 AM
--- NOTE | 2020-05-30 12:00 | History & Physical Report ---
Date of Service May 30, 2020 Assessment & Plan (1) Shortness of breath: Very exertional nature with angiographically normal-appearing coronary arteries on cath in November 2019. Patient feels this is similar to previous asthma exacerbations although also notes not having an exacerbation for 10-15 years - agree to treat as such given possible trigger and reversibility much easier than her severe aortic stenosis however suspect this is more progression of her aortic stenosis now with mendel vular heart failure. Additional possibility of her multiple pulmonary and mediastinal nodules noted on CTA in December 2019 - patient declines further workup for this currently. (2) Acute heart failure with preserved ejection fraction: Secondary to severe stenosis of the bioprosthetic aortic valve and moderate mitral regurgitation on echocardiogram in September 2019. Likely progressed but given nonsurgical candidate will defer repeating TTE to cardiology. Lasix 20 mg IV Consult cardiology - discussed with Dr. Schuster (3) Severe aortic stenosis: Previously worked up at [facility] and reportedly nonsurgical candidate unless she has her suspected metastatic disease evaluated and determined to have life expectancy beyond 1 year. Management as above. (4) H/O aortic valve replacement: (5) Bilateral pleural effusion: Likely contributing towards shortness of breath as above. Suspect CHF due to very orthopneic and exertional nature of her symptoms, however discussed these may also be malignant. Patient declines further work-up for her malignancy at this time. (6) Asthma exacerbation: Apart from her insistence this feels like an asthma exacerbation, labs, imaging and examination are much more suggestive of heart failure associated with her aortic stenosis and possible malignancy. However she has noticed some improvement with duo nebs therefore we will continue these 4 times daily in addition to continuing prednisone 50 mg daily p.o. with additional methylprednisolone 40 mg IV now to her prednisone taken overnight. (7) Mass: Noted on CTA in December 2019. 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 Patient does not wish this further worked up. (9) Atrial fibrillation: Paroxysmal. Currently in normal sinus rhythm. Continue Eliquis for anticoagulation. (10) HTN (hypertension): Continue her usual metoprolol succinate 25 mg p.o. daily (11) History of migraine: Continue Topamax 50 mg p.o. twice daily (12) Epistaxis: Recent history of this requiring cauterization by Dr. Chow 3 days ago. Continue on Eliquis as patient has restarted full dose of this now. Recommend holding Celebrex as patient feels she could do without this medication. Admission and Anticipated Discharge Date Admission Date: May 30, 2020 History of Present Illness Chief Complaint: "I have asthma and I couldn't get any air" Primary Care Provider: Helen Moreno MD Roya Robert is an 85-year-old female who presents to the ER with worsening shortness of breath over the last week. She reports a history of asthma with possible exacerbation related to a new couch and recent nasal surgery. She reports her shortness of breath much worse on any exertion, lying flat and at nighttime. She denies any associated chest pain, nausea, presyncope/syncope or diaphoresis. She took some prednisone 50 mg p.o. last night leftover from prior episode of COVID-19 and feels she is improved with this as well as some minimal improvement with her nebulizer at home. She has a notable history of COVID-19 in June 2019 with full recovery and has since received both doses of the COVID-19 vaccination. She also has a known history of severe aortic stenosis of her bioprosthetic valve. This was recently worked up at [facility] by cardiothoracic surgery. As part of this evaluation she underwent CT angiogram on December 21, 2019. This unfortunately showed concerning features for metastatic disease. 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 There are additional masses in the left posterior mediastinum as well as right pericardium, pulmonary nodules and enlarged bilateral hilar lymph nodes. The patient declined further work-up for this although is relatively unclear on what follow-up she has had. In the ER chest x-ray concerning for pulmonary vascular congestion and bilateral pleural effusions with bibasilar consolidation. She was referred to medicine for admission and ongoing management of shortness of breath, elevated troponin and pleural effusions. Allergies Allergy/AdvReac Type Severity Reaction Status Date / Time adhesive tape Allergy Intermediate BURN SKIN Verified 05/30/20 10:07 Penicillins Allergy Intermediate swelling Verified 05/30/20 10:07 Home Medications Medication Instructions Recorded Confirmed Type dextran 70-hypromellose 0.1 %-0.3 1 drops OP UD ml 08/22/18 05/30/20 History % eye drops krill oil 500 mg capsule 500 mg PO QAM cap 09/21/18 05/30/20 History cholecalciferol (vitamin D3) 25 1,000 units PO QAM tab 01/25/19 05/30/20 Hi story mcg (1,000 unit) tablet white petrolatum-mineral oil 57.3 1 appln OP HS gm 01/25/19 05/30/20 History %-42.5 % eye ointment omeprazole 20 mg PO DAILY 08/23/19 05/30/20 History oxybutynin chloride 5 mg tablet 5 mg PO BID #60 tab 11/03/19 05/30/20 Rx Eliquis 5 mg PO BID 05/27/20 05/30/20 History metoprolol succinate [Toprol XL] 25 mg PO DAILY 05/27/20 05/30/20 History sumatriptan succinate [Imitrex] See Rx Instructions .ROUTE 05/27/20 05/30/20 History .COMPLEX PRN topiramate [Topamax] 50 mg PO BID 05/27/20 05/30/20 History celecoxib 100 mg PO BID 05/30/20 05/30/20 History mv,Ca,min-iron cbrz-YD-[id number] 1 tab PO DAILY 05/30/20 05/30/20 History [Hair,Skin and Nails] Past Med/Surg History Medical History Acute sinusitis Anemia Anxiety and depression Aortic valve disease S/P bovine pericardial tissue valve in 2002. September 2019 echo revealed severe stenosis of the bioprosthesis, referred to CT surgery for TAVR. Unfortunately, due to finding of mass in buttocks and lung lesions on pre-op CT, surgery postponed until mass etiology identified. Patient refusing biopsy. Asthma NO RECENT PROBLEMS "DOES NOT USE INHALER" Atrial fibrillation FOLLOWS WITH DR. JESUS Chronic anticoagulation Classic migraine with aura Stable and improved on Topamax, seen by Dr Salamanca 03/30/20. COVID-19 Epistaxis Esophageal motility disorder Eustachian tube dysfunction GERD (gastroesophageal reflux disease) Controlled with PPI. History of COVID-04 AUG 2019 (TESTED NEAR [place] AT A TENT) SYMPTOMS>FATIGUE, CONGESTION, FEVER History of meningioma OF BRAIN Hx of gastric ulcer Hx of vertigo Hyperlipidemia Osteoarthritis Paroxysmal atrial fibrillation Sjogrens syndrome TIA (transient ischemic attack) ? DATE Urinary, incontinence, stress female Surgical History H/O aortic valve replacement 2003 DONE AT [facility] History of appendectomy History of brain surgery Meningioma excision, 2009 AT [facility] History of cardiac cath LAST ONE 2019 AT [facility] for pre-op for TAVR. History of cataract surgery RT/LEFT History of colonoscopy History of knee replacement History of total knee replacement RT/LEFT Family History Father Family history of diabetes mellitus Grandmother (Paternal) Family history of diabetes mellitus Other Allergies Asthma Heart disease No family history of adverse response to anesthesia No family history of bleeding disorder Stroke Denies family history of Ovarian cancer Prostate cancer Hearing loss Myocardial infarction Breast cancer Colorectal cancer Cancer Hypertension Social History Smoking Status: Never smoker Second Hand Exposure: No; Hx Alcohol Use: Yes Alcohol type: beer Hx Substance Use: No Preferred Language: Sinhala Communication Ability: Effective Seo Analyst Required: No Beliefs That Will Affect Care: None marital status: / Current Living Situation: Alone current occupational status: retired How many Children do You have: 5 Other Information That Helps Us Care for You: No Feels Safe at Home: Yes Safety Concerns: Feels Safe At This Time caffeine: Yes Dental Care, Regularly: Yes Physical Activity Frequency: Daily Seatbelt Use: always Sunscreen Use: No Assistive Devices: None Review of Systems Review of Systems: All systems reviewed & are unremarkable except as noted in HPI & below Musculoskeletal: Midthoracic mild back pain Physical Exam Constitutional: well developed, + acute distress (Leaning forward to avoid shortness of breath when she lies flat) and + thin; + not well nourished Eyes: + anicteric sclerae; normal pupil size ENMT: external ear and nose normal, oropharynx normal Neck: trachea midline Respiratory: + uses accessory muscles and able to speak in complete sentences; no retractions, no cough and not tachypneic Auscultation: + crackles (Bibasal); no diminished lung sounds, no rales, no rhonchi and no wheezes Cardiovascular: Rate/Rhythm: regular rate and regular rhythm Heart Sounds: + murmur (Harsh holosystolic throughout loudest RUSB) Vessels: + JVD Extremities: normal capillary refill and + pedal edema (1+ ankles bilaterally equal); no calf tenderness Gastrointestinal (Abdomen): normal bowel sounds, soft, nontender, no hepatosplenomegaly Musculoskeletal: no cyanosis or clubbing, extremities motor strength 5/5 Skin: no rashes, warm and dry Neurologic: moves all extremities and awake; no focal motor deficits (No lateralizing weakness) and not confused Psychiatric: A+Ox3, euthymic affect Results & Data Results & Data ([place]) Vital Signs (Past 12 Hours) Vital Signs Temp Pulse Pulse Resp BP BP Pulse Ox 05/30/20 11:41 85 135/77 95 05/30/20 09:23 36.4 C L 80 24 166/61 H 96 Diagnostic Findings SINGLE VIEW CHEST IMPRESSION: 1. Cardiomegaly with pulmonary vascular congestion. 2. Pleural effusions with bibasilar consolidation. This could represent atelectasis and/or an infectious/inflammatory pneumonitis. Clinical correlation will be required and radiographic follow-up to resolution is recommended. Medications Administered ER medications given: None ECG Indication: SOB/dyspnea Rate (beats per minute): 90 Rhythm: normal sinus Findings: + PAC; no acute ischemic change Comparison ECG Date: from (August 23, 2019) Change: no significant change Code Status & VTE Plan Code Status DNR/DNI VTE Prophylaxis Plan VTE Prophylaxis will be ordered: Yes PG Care Time/CCT Total # of Minutes Spent Total Time Spent with Patient: Total time spent is greater than 50% in coordination of care (as documented) at patient's floor/unit and/or counseling patient: Coding Level of Care Code 66086 OBS Care - Level 3 Diagnoses Shortness of breath R06.02 Acute heart failure with preserved ejection fraction I50.31 Severe aortic stenosis I35.0 H/O aortic valve replacement Z95.2 Bilateral pleural effusion J90 Asthma exacerbation J45.901 Mass Mediastinal mass J98.59 Atrial fibrillation I48.0 Atrial fibrillation type: paroxysmal HTN (hypertension) I10 Hypertension type: essential hypertension History of migraine Z86.69 Epistaxis R04.0 (1) Atrial fibrillation Atrial fibrillation type: paroxysmal Qualified Code(s): I48.0 - Paroxysmal atrial fibrillation (2) HTN (hypertension) Hypertension type: essential hypertension Qualified Code(s): I10 - Essential (primary) hypertension
[2020-05-30] MEDS ORDERED: ALBUT/IPRATROP 3MG/0.5MG NEB 3 ML VIAL NEB STA (12:10)
[2020-05-30] MEDS ORDERED: METOPROLOL SUCC 25MG EXT REL TAB PO STA (12:12)
[2020-05-30] MEDS ORDERED: PANTOprazole 40 MG TAB PO STA (12:12)
[2020-05-30] MEDS ORDERED: FUROSEMIDE 40 MG/4 ML VIAL IV STA (12:12)
[2020-05-30] MEDS ORDERED: TOPIRAMATE 50 MG TAB PO STA (12:12)
[2020-05-30] MEDS ORDERED: OXYBUTYNIN CHLORIDE 5 MG TAB PO STA (12:13)
[2020-05-30] MEDS ORDERED: ALBUT/IPRATROP 3MG/0.5MG NEB 3 ML VIAL ONE (14:49)
[2020-05-30] MEDS ORDERED: ACETAMINOPHEN 325 MG TAB PO PRN (15:56)
[2020-05-30] MEDS ORDERED: Nursing to Pharmacy Communication SCH (16:45)
[2020-05-30] MEDS ORDERED: FUROSEMIDE 20 MG in SYRINGE 0 ML IV ONE (17:00)
[2020-05-30] MEDS ORDERED: methylPREDNISolone 40 MG in SYRINGE 0 ML IV ONE (17:00)
--- NOTE | 2020-05-30 17:12 | Cardiology Consultation ---
Date of Consultation May 30, 2020 Assessment & Plan (1) Acute diastolic CHF (congestive heart failure): (2) Elevated troponin: (3) Aortic stenosis: (4) HTN (hypertension): (5) Paroxysmal atrial fibrillation: (6) S/P AVR: (7) Cancer: ASSESSMENT/PLAN: 1. Acute diastolic CHF: Presentation is consistent with heart failure. She appears mildly hypervolemic. She received Lasix 20 mg IV x1 in the emergency department. Will reassess tomorrow to determine further dosing. Strict I&Os. Daily weights. Low-sodium diet. Likely related to her severe stenosis of her bioprosthetic aortic valve. 2. Elevated troponin: Likely due to severe bioprosthetic aortic valve stenosis and heart failure. No CAD. She did not present with acute coronary syndrome. No ischemic evaluation necessary. 3. Bioprosthetic aortic valve with severe stenosis: She was evaluated [place] [facility] [place] for the possibility of TAVR across her bioprosthetic aortic valve. CT surgery deemed her to be too high risk for surgical aortic valve replacement. She was then found to have several masses concerning for metastatic cancer and aortic valve replacement is no longer planned as she does not wish to undergo further investigation of the malignancy, and/or treatment if an option. Because she does not wish to follow through with these more aggressive measures, will not repeat echocardiogram at this time as it will not likely alter her course or her management. 4. Hypertension: Blood pressure has been normotensive to mildly hypertensive. Diuretic as above. 5. Paroxysmal atrial fibrillation: Sinus rhythm with ectopy currently. On anticoagulation for stroke risk reduction. Continue home dose of beta-arsh. 6. Cancer: CT imaging at [facility] concerning for metastatic cancer. She is adamant that she does not want to undergo biopsy or treatment. 7. Disposition: Cardiology will continue to follow. Recommend palliative care consultation which was discussed with her and her daughter, Jessi via telephone. They both are agreeable for palliative care consultation given the fact that she has severe bioprosthetic aortic valve stenosis, and likely metastatic cancer per Radiology report but does not wish to undergo further aggressive measures at this time. Patient care discussed with Dr. Chan of the primary hospitalist service. On discharge, she should follow-up with her primary protective services officer, Dr. Jesus. Recommend heart failure program. 50 min spent for today's consultation, including [id number] time with the patient, telephone call with her daughter, chart review, image review, coordinating care with hospitalist service, and documentation. Thank you for allowing me to participate in the care of your patient. Please call for any other questions or concerns. Sincerely, Toni Schuster M.D. History of Present Illness Reason for Consultation: "Aortic stenosis, acute CHF" Requesting Physician: Ishaan Chan MD Attending Physician: Ishaan Chan MD History of Present Illness Mrs. 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 Her primary protective services officer is Dr. Jesus. She has been followed by Dr. Jesus for her bioprosthetic aortic valve and paroxysmal atrial fibrillation. 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 She was found to have no significant CAD and was evaluated [facility] recommended TAVR but CT imaging in anticipation of TAVR demonstrated masses concerning for metastatic cancer. She has opted to decline biopsy and states today that she would not to undergo treatment for cancer at this point in her life. She states that she has discussed this with her family as well. She was admitted on 05/30/2020 for shortness of breath concerning for CHF. She states that this is just plain asthma. She admits that she has had asthma for many years but has not had any issues with her asthma for at least 12-15 years. For the past 2 or 3 days she has had increased dyspnea with exertion and also had significant orthopnea overnight. She took albuterol treatment earlier last night with brief improvement but her symptoms later worsened. She found some prednisone 50 mg tablets at home and took a dose. She denies chest pain, syncope, near-syncope, palpitations, edema, melena, hematochezia, hematuria, or epistaxis. She recently underwent cauterization by ENT for recurrent epistaxis while on Eliquis. While here, she has received Lasix 20 mg IV x1 and also has been written for albuterol nebulizers and steroids. Overall, she feels better than presentation. She is hoping to go to [place] later this week with her daughter, Jessi. Review of systems: As above. Review of systems otherwise negative/unremarkable. Family history: No known premature CAD. Eleven siblings. Social history: She denies tobacco or alcohol abuse. She lives alone. She has 4 children, 2 sons and 2 daughters. She spends much time with her daughter, Jessi, and has asked that I contact her via telephone. She was alone in her hospital room. Allergies Allergy/AdvReac Type Severity Reaction Status Date / Time adhesive tape Allergy Intermediate BURN SKIN Verified 05/30/20 10:07 Penicillins Allergy Intermediate swelling Verified 05/30/20 10:07 Home Medications Medication Instructions Recorded Confirmed Type dextran 70-hypromellose 0.1 %-0.3 1 drops OP UD ml 08/22/18 05/30/20 History % eye drops krill oil 500 mg capsule 500 mg PO QAM cap 09/21/18 05/30/20 History cholecalciferol (vitamin D3) 25 1,000 units PO QAM tab 01/25/19 05/30/20 History mcg (1,000 unit) tablet white petrolatum-mineral oil 57.3 1 appln OP HS gm 01/25/19 05/30/20 History %-42.5 % eye ointment omeprazole 20 mg PO DAILY 08/23/19 05/30/20 History oxybutynin chloride 5 mg tablet 5 mg PO BID #60 tab 11/03/19 05/30/20 Rx Eliquis 5 mg PO BID 05/27/20 05/30/20 History metoprolol succinate [Toprol XL] 25 mg PO DAILY 05/27/20 05/30/20 History sumatriptan succinate [Imitrex] See Rx Instructions .ROUTE 05/27/20 05/30/20 History .COMPLEX PRN topiramate [Topamax] 50 mg PO BID 05/27/20 05/30/20 History celecoxib 100 mg PO BID 05/30/20 05/30/20 History mv,Ca,min-iron [id number] 1 tab PO DAILY 05/30/20 05/30/20 History [Hair,Skin and Nails] Patient History Medical History (Updated 05/30/20 @ 17:02 by Deonte Schuster MD) Acute sinusitis Anemia Anxiety and depression Aortic valve disease S/P bovine pericardial tissue valve in 2002. September 2019 echo revealed severe stenosis of the bioprosthesis, referred to CT surgery for TAVR. Unfortunately, due to finding of mass in buttocks and lung lesions on pre-op CT, surgery postponed until mass etiology identified. Patient refusing biopsy. Asthma NO RECENT PROBLEMS "DOES NOT USE INHALER" Atrial fibrillation FOLLOWS WITH DR. JESUS Chronic anticoagulation Classic migraine with aura Stable and improved on Topamax, seen by Dr Salamanca 03/30/20. COVID-19 Epistaxis Esophageal motility disorder Eustachian tube dysfunction GERD (gastroesophageal reflux disease) Controlled with PPI. History of COVID-04 AUG 2019 (TESTED NEAR LOA AT A TENT) SYMPTOMS>FATIGUE, CONGESTION, FEVER History of meningioma OF BRAIN Hx of gastric ulcer Hx of vertigo Hyperlipidemia Osteoarthritis Paroxysmal atrial fibrillation Sjogrens syndrome TIA (transient ischemic attack) ? DATE Urinary, incontinence, stress female Surgical History (Updated 05/30/20 @ 15:45 by Alf Sims DO) H/O aortic valve replacement 2002 DONE AT [place] History of appendectomy History of brain surgery Meningioma excision, 2008 AT [facility] History of cardiac cath LAST ONE 2019 AT [facility] for pre-op for TAVR. History of cataract surgery RT/LEFT History of colonoscopy History of knee replacement History of total knee replacement RT/LEFT Family History Father Family history of diabetes mellitus Grandmother (Paternal) Family history of diabetes mellitus Other Allergies Asthma Heart disease No family history of adverse response to anesthesia No family history of bleeding disorder Stroke Denies family history of Ovarian cancer Prostate cancer Hearing loss Myocardial infarction Breast cancer Colorectal cancer Cancer Hypertension Social History Smoking Status: Never smoker Second Hand Exposure: No; Hx Alcohol Use: Yes Alcohol type: beer Hx Substance Use: No Preferred Language: Finnish Communication Ability: Effective [employer] Program Coordinator Required: No Beliefs That Will Affect Care: None marital status: / Current Living Situation: Alone current occupational status: retired How many Children do You have: 5 Other Information That Helps Us Care for You: No Feels Safe at Home: Yes Safety Concerns: Feels Safe At This Time caffeine: Yes Dental Care, Regularly: Yes Physical Activity Frequency: Daily Seatbelt Use: always Sunscreen Use: No Assistive Devices: None Physical Exam Physical Exam: Gen.: No acute distress. Alert and oriented. HEENT: Anicteric sclera. Neck: No JVD. Bilateral bruits vs radiation of cardiac murmur. Sluggish carotid upstrokes bilaterally. Cardiac: PMI was nondisplaced. No ventricular heave. Regular rate and rhythm. Normal S1. S2 not audible. 3/6 late peaking systolic ejection murmur heard best at right upper sternal border. No rubs or gallops. Pulmonary: Bibasilar rales, otherwise clear. Abdomen: Soft, nontender, nondistended, with normoactive bowel sounds. No bruits noted. Extremities: 2+ radial pulses bilaterally. 2+ posterior tibialis pulses bilaterally. No pitting edema or cyanosis. No palpable cords. Psychiatric: Affect appears appropriate. Results & Data ([facility]) Vital Signs (Past 12 Hours) Vital Signs Temp Pulse Pulse Resp BP BP Pulse Ox 05/30/20 15:22 99 H 20 160/62 H 05/30/20 14:53 79 18 94 05/30/20 13:00 77 20 120/77 94 05/30/20 11:41 85 135/77 95 05/30/20 09:23 36.4 C L 80 24 166/61 H 96 Laboratory Results Laboratory Results - last 24 hr 05/30/20 05/30/20 05/30/20 09:50 09:50 09:50 WBC 5.57 RBC 4.04 L Hgb 9.9 L Hct 31.3 L MCV 77.5 L MCH 24.5 L MCHC 31.6 L RDW Std Deviation 52.8 H RDW Coeff of Justa 18.7 H Plt Count 253 MPV 9.5 Immature Gran % (Auto) 0.2 Neut % (Auto) 89.3 Lymph % (Auto) 8.4 [place] % (Auto) 1.4 Eos % (Auto) 0.2 Baso % (Auto) 0.5 Neut # (Auto) 4.97 Lymph # (Auto) 0.47 L [place] # (Auto) 0.08 L Eos # (Auto) 0.01 Baso # (Auto) 0.03 Immature Gran # (Auto) 0.01 Sodium 144 Potassium 4.0 Chloride 115 H Carbon Dioxide 23 Anion Gap 6.0 BUN 17 Creatinine 0.73 Est Cr Clr Drug Dosing Not Reportable Est GFR ( Amer) 85.8 Est GFR (Non-Af Amer) 74.1 BUN/Creatinine Ratio 23.5 H Glucose 170 H Calcium 8.9 Total Bilirubin 0.3 AST 33 ALT 45 Alkaline Phosphatase 64 Troponin I 0.056 H* NT-Pro-B Natriuret Pep 6178 H Total Protein 8.2 Albumin 3.7 Globulin 4.5 H Albumin/Globulin Ratio 0.8 L Lipase 134 COVID-19 Eval Order SARS-CoV-2, RNA, NAAT 05/30/20 05/30/20 13:30 13:30 WBC RBC Hgb Hct MCV MCH MCHC RDW Std Deviation RDW Coeff of Justa Plt Count MPV Immature Gran % (Auto) Neut % (Auto) Lymph % (Auto) [place] % (Auto) Eos % (Auto) Baso % (Auto) Neut # (Auto) Lymph # (Auto) [place] # (Auto) Eos # (Auto) Baso # (Auto) Immature Gran # (Auto) Sodium Potassium Chloride Carbon Dioxide Anion Gap BUN Creatinine Est Cr Clr Drug Dosing Est GFR ( Amer) Est GFR (Non-Af Amer) BUN/Creatinine Ratio Glucose Calcium Total Bilirubin AST ALT Alkaline Phosphatase Troponin I NT-Pro-B Natriuret Pep Total Protein Albumin Globulin Albumin/Globulin Ratio Lipase COVID-19 Eval Order Covid19 [facility] SARS-CoV-2, RNA, NAAT NEGATIVE Diagnostic Findings Chest x-ray image personally reviewed from 05/30/2020: Prominent pulmonary vasculature noted. small bilateral pleural effusions. Per Radiology, bibasilar consolidation as well. 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 Left posterior mediastinum 4.3 x 2.7 x 2.4 cm and 4 x 2.1 x 3.3 cm irregular soft tissue density along the right pericardium and anterior right hemidiaphragm, suggestive of metastatic disease. Shaggy pulmonary nodules right lower lobe up to 1 cm concerning for metastatic disease. Enlarged bilateral hilar lymph nodes up to 1.4 cm, which may represent metastases. ECG personally reviewed: ECG 05/30/2020: Sinus rhythm with PACs 90 beats per minute. Left axis deviation. LVH. Echo 09/18/2019: Normal biventricular systolic function. Severe stenosis of bioprosthetic aortic valve. Mild AI. Moderate MR and TR. Cardiac catheterization 12/03/2019: No significant CAD. Dominant circumflex. Medications Administered Current Inpatient Medications Acetaminophen (Acetaminophen 325 Mg Tab) 650 mg PO Q4H PRN PRN Reason: Pain or Fever Stop: 06/29/20 15:55 Albuterol (Albut/Ipratrop 3mg/0.5mg Neb 3 Ml Vial) 3 ml NEB QIDR LYNETTE Stop: 06/29/20 18:59 Apixaban (Apixaban 5 Mg Tablet) 5 mg PO BID LYNETTE Stop: 06/29/20 20:59 Furosemide 20 mg/ Syringe 2 mls @ 4 mls/min IV ONE ONE Stop: 05/30/20 17:01 Methylprednisolone 40 mg/ (Syringe) 0.64 mls @ 1.5 mls/min IV ONE ONE Stop: 05/30/20 17:01 Metoprolol Succinate (Metoprolol Succ 25mg Ext Rel Tab) 25 mg PO DAILY LYNETTE Stop: 06/30/20 08:59 Multi-Ingredient Cream (Artificial Tears Op Oint 3.5 Gm Tube) 1 appln OP HS LYNETTE Stop: 06/29/20 20:59 Multivitamins/Minerals (Cerovite Adv Formula Tab) 1 tab PO DAILY LYNETTE Stop: 06/30/20 08:59 Oxybutynin Chloride (Oxybutynin Chloride 5 Mg Tab) 5 mg PO BID LYNETTE Stop: 06/29/20 20:59 Pantoprazole Sodium (Pantoprazole 40 Mg Tab) 40 mg PO DAILY LYNETTE Stop: 06/30/20 08:59 Prednisone (Prednisone 50 Mg Tab) 50 mg PO QAM LYNETTE Stop: 06/04/20 08:59 Topiramate (Topiramate 50 Mg Tab) 50 mg PO BID LYNETTE Stop: 06/29/20 20:59 Vitamin D (Cholecalciferol 1,000 Units 25 Mcg Tab) 1,000 units PO QAM LYNETTE Stop: 06/30/20 08:59 PG Care Time/CCT Total # of Minutes Spent Total Time Spent with Patient: Total time spent is greater than 50% in coordination of care (as documented) at patient's floor/unit and/or counseling patient: Coding Level of Care Code 18115 Office/Outpt Visit, Est Diagnoses Acute diastolic CHF (congestive heart failure) I50.31 Elevated troponin R77.8 Aortic stenosis I35.0 Cardiac valve disease etiology: etiology unspecified HTN (hypertension) I10 Hypertension type: essential hypertension Paroxysmal atrial fibrillation I48.0 S/P AVR Z95.2 Cancer C80.1 (1) Aortic stenosis Cardiac valve disease etiology: etiology unspecified Qualified Code(s): I35.0 - Nonrheumatic aortic (valve) stenosis (2) HTN (hypertension) Hypertension type: essential hypertension Qualified Code(s): I10 - Essential (primary) hypertension
[2020-05-30] MEDS: ALBUT/IPRATROP 3MG/0.5MG NEB 3 ML VIAL NEB SCH (19:25)
[2020-05-30] MEDS ORDERED: ARTIFICIAL TEARS OP OINT 3.5 GM TUBE OP SCH (21:00)
[2020-05-30] MEDS: APIXABAN 5 MG TABLET PO SCH (21:17)
[2020-05-30] MEDS: OXYBUTYNIN CHLORIDE 5 MG TAB PO SCH (21:17)
[2020-05-30] MEDS: TOPIRAMATE 50 MG TAB PO SCH (21:18)
--- NOTE | 2020-05-31 06:22 | Electrocardiogram Report ---
Test Reason : Blood Pressure : / mmHG Vent. Rate : 090 BPM Atrial Rate : 090 BPM P-R Int : 160 ms QRS Dur : 106 ms QT Int : 390 ms P-R-T Axes : 000 -38 071 degrees QTc Int : 477 ms Sinus rhythm with Premature atrial complexes Left axis deviation Moderate voltage criteria for LVH, may be normal variant Abnormal ECG When compared with ECG of 23-AUG-2019 20:45, No significant change was found Confirmed by Deonte Schuster ([id number]) on 05/31/2020 6:21:39 AM Referred By: Helen Moreno Confirmed By:Deonte Schuster
[2020-05-31] MEDS: ALBUT/IPRATROP 3MG/0.5MG NEB 3 ML VIAL NEB SCH (07:25)
[2020-05-31] MEDS: OXYBUTYNIN CHLORIDE 5 MG TAB PO SCH (08:41)
[2020-05-31] MEDS: TOPIRAMATE 50 MG TAB PO SCH (08:41)
[2020-05-31] MEDS: APIXABAN 5 MG TABLET PO SCH (08:41)
[2020-05-31 08:58] LABS: Basophils # (auto) 0.02 K/uL (0-0.2); Basophils % (auto) 0.4 %; Eosinophils # (auto) 0.05 K/uL (0-0.5); Hematocrit (blood only) 30.4 % (37-47); Hemoglobin 9.4 g/dL (12.0-16.0); Lymphocytes # (auto) 1.05 K/uL (1.2-3.4); Lymphocytes % (auto) 21.1 %; Mean Corpuscular Hemoglobin 24.2 pg (25-34); Mean Corpuscular Hgb Conc 30.9 g/dL (32-36); Mean Corpuscular Volume 78.4 fL (80-100); Mean Platelet Volume 9.9 fL (7.4-10.4); Monocytes # (auto) 0.55 K/uL (0.11-0.59); Monocytes % (auto) 11.1 %; Neutrophils % (auto) 66.4 %; Platelet Count 253 K/uL (130-400); RDW Coefficient of Variation 18.9 % (11.5-14.5); RDW Standard Deviation 54.1 fL (36.4-46.3); Red Blood Count 3.88 M/uL (4.2-5.4); White Blood Count 4.97 K/uL (4.8-10.8)
[2020-05-31] MEDS ORDERED: predniSONE 50 MG TAB PO SCH (09:00)
[2020-05-31] MEDS ORDERED: CEROVITE ADV FORMULA TAB PO SCH (09:00)
[2020-05-31] MEDS ORDERED: PANTOprazole 40 MG TAB PO SCH (09:00)
[2020-05-31] MEDS ORDERED: CHOLECALCIFEROL 1,000 UNITS 25 MCG TAB PO SCH (09:00)
[2020-05-31] MEDS ORDERED: ALBUT/IPRATROP 3MG/0.5MG NEB 3 ML VIAL NEB PRN (09:00)
[2020-05-31] MEDS ORDERED: METOPROLOL SUCC 25MG EXT REL TAB PO SCH (09:00)
[2020-05-31] MEDS ORDERED: NON-FORMULARY MEDICATION (Krill Oil 500 mg capsule) PO SCH (09:00)
[2020-05-31 09:31] LABS: BUN Creatinine Ratio 30.3 (10-20); Calcium 9.3 mg/dl (8.5-10.1); Creatinine Clr Calc Pharmacy 47.7 ml/min; Est GFR (African American) 84.4; Est GFR (Non-African American) 72.8; Potassium 3.4 mmol/L (3.5-5.1)
[2020-05-31] MEDS ORDERED: POTASSIUM CHLORIDE CRTAB 20 MEQ TABCR PO STA (09:53)
--- NOTE | 2020-05-31 09:53 | Cardiology Progress Note ---
Date of Service May 31, 2020 Assessment & Plan (1) Acute diastolic CHF (congestive heart failure): (2) Elevated troponin: (3) Aortic stenosis: (4) HTN (hypertension): (5) Paroxysmal atrial fibrillation: (6) S/P AVR: (7) Cancer: ASSESSMENT/PLAN: 1. Acute diastolic CHF: Presentation is consistent with heart failure. She appears euvolemic. She received Lasix 20 mg IV x1 in the emergency department. Difficult to know if she will need daily diuretic at home. For now, start Lasix 10 mg p.o. daily with close follow-up in the Heart failure program. Strict I&Os. Daily weights. Low-sodium diet. Likely related to her severe stenosis of her bioprosthetic aortic valve. Potassium chloride 20 mEq x1 ordered for mild hypokalemia. 2. Elevated troponin: Likely due to severe bioprosthetic aortic valve stenosis and heart failure. No CAD. She did not present with acute coronary syndrome. No ischemic evaluation necessary. 3. Bioprosthetic aortic valve with severe stenosis: [place] [facility] [place] for the possibility of TAVR across her bioprosthetic aortic valve. CT surgery deemed her to be too high risk for surgical aortic valve replacement. She was then found to have several masses concerning for metastatic cancer and aortic valve replacement is no longer planned as she does not wish to undergo further investigation of the malignancy, and/or treatment if an option. Because she does not wish to follow through with these more aggressive measures, will not repeat echocardiogram at this time as it will not likely alter her course or her management. 4. Hypertension: Blood pressure has been reasonably controlled. Adjusting diuretic as above. 5. Paroxysmal atrial fibrillation: Sinus rhythm here. On anticoagulation for stroke risk reduction. Continue home dose of beta-arsh. 6. Probable Cancer: CT imaging [place] [facility] concerning for metastatic cancer. She is adamant that she does not want to undergo biopsy or treatment. 7. Disposition: From a cardiac standpoint, she appears to be ready for discharge today. Close follow-up in the Heart failure program in with her primary print decorator, Dr. White. Patient care discussed with Ms. Miller of the HF program. Palliative care consultation is pending. Recommend Lasix 10 mg once daily at home. Admission and Anticipated Discharge Date Admission Date: May 30, 2020 Subjective She feels much better today. She feels back to baseline. She denies orthopnea however did not try to lay flat last night. She denies shortness of breath, syncope, near-syncope, chest pain, palpitations, edema, or bleeding. She is hoping to go home today. Review of systems: As above. Physical Exam Physical Exam: Gen.: No acute distress. Alert and oriented. HEENT: Anicteric sclera. Neck: No JVD. Cardiac: PMI was nondisplaced. No ventricular heave. Regular. Normal S1. S2 not audible. 3/6 late peaking systolic ejection murmur heard best at right upper sternal border. No rubs or gallops. Pulmonary: Bibasilar rales, otherwise clear. Abdomen: Soft, nontender, nondistended, with normoactive bowel sounds. No bruits noted. Extremities: 2+ radial pulses bilaterally. 2+ posterior tibialis pulses bilaterally. No pitting edema or cyanosis. Psychiatric: Affect appears appropriate. Results & Data ([facility]) Vital Signs (Past 12 Hours) Vital Signs Temp Pulse Pulse Resp BP Pulse Ox 05/31/20 07:28 79 16 97 05/31/20 07:17 36.7 C 58 L 18 137/61 96 05/31/20 03:06 37.0 C 91 H 18 95/50 L 92 05/30/20 23:35 37.3 C 76 18 106/46 L 93 05/30/20 22:31 68 Intake & Output 05/29/20 05/30/20 05/31/20 06/01/20 06:59 06:59 06:59 06:59 Intake Total 1025 / 1025 Output Total 1750 / 1750 400 / 400 Balance -725 / -725 -400 / -400 Weight 145 lb 1.027 oz Laboratory Results Laboratory Results - last 24 hr 05/30/20 05/30/20 05/30/20 09:50 09:50 09:50 WBC 5.57 RBC 4.04 L Hgb 9.9 L Hct 31.3 L MCV 77.5 L MCH 24.5 L MCHC 31.6 L RDW Std Deviation 52.8 H RDW Coeff of Justa 18.7 H Plt Count 253 MPV 9.5 Immature Gran % (Auto) 0.2 Neut % (Auto) 89.3 Lymph % (Auto) 8.4 [place] % (Auto) 1.4 Eos % (Auto) 0.2 Baso % (Auto) 0.5 Neut # (Auto) 4.97 Lymph # (Auto) 0.47 L [place] # (Auto) 0.08 L Eos # (Auto) 0.01 Baso # (Auto) 0.03 Immature Gran # (Auto) 0.01 Sodium 144 Potassium 4.0 Chloride 115 H Carbon Dioxide 23 Anion Gap 6.0 BUN 17 Creatinine 0.73 Est Cr Clr Drug Dosing Not Reportable Est GFR ( Amer) 85.8 Est GFR (Non-Af Amer) 74.1 BUN/Creatinine Ratio 23.5 H Glucose 170 H Calcium 8.9 Total Bilirubin 0.3 AST 33 ALT 45 Alkaline Phosphatase 64 Troponin I 0.056 H* NT-Pro-B Natriuret Pep 6178 H Total Protein 8.2 Albumin 3.7 Globulin 4.5 H Albumin/Globulin Ratio 0.8 L Lipase 134 COVID-19 Eval Order SARS-CoV-2, RNA, NAAT 05/30/20 05/30/20 05/31/20 13:30 13:30 08:25 WBC 4.97 RBC 3.88 L Hgb 9.4 L Hct 30.4 L MCV 78.4 L MCH 24.2 L MCHC 30.9 L RDW Std Deviation 54.1 H RDW Coeff of Justa 18.9 H Plt Count 253 MPV 9.9 Immature Gran % (Auto) 0.0 Neut % (Auto) 66.4 Lymph % (Auto) 21.1 [place] % (Auto) 11.1 Eos % (Auto) 1.0 Baso % (Auto) 0.4 Neut # (Auto) 3.30 Lymph # (Auto) 1.05 L [place] # (Auto) 0.55 Eos # (Auto) 0.05 Baso # (Auto) 0.02 Immature Gran # (Auto) 0.00 Sodium Potassium Chloride Carbon Dioxide Anion Gap BUN Creatinine Est Cr Clr Drug Dosing Est GFR ( Amer) Est GFR (Non-Af Amer) BUN/Creatinine Ratio Glucose Calcium Total Bilirubin AST ALT Alkaline Phosphatase Troponin I NT-Pro-B Natriuret Pep Total Protein Albumin Globulin Albumin/Globulin Ratio Lipase COVID-19 Eval [facility] SARS-CoV-2, RNA, NAAT NEGATIVE 05/31/20 08:25 WBC RBC Hgb Hct MCV MCH MCHC RDW Std Deviation RDW Coeff of Justa Plt Count MPV Immature Gran % (Auto) Neut % (Auto) Lymph % (Auto) [place] % (Auto) Eos % (Auto) Baso % (Auto) Neut # (Auto) Lymph # (Auto) [place] # (Auto) Eos # (Auto) Baso # (Auto) Immature Gran # (Auto) Sodium 142 Potassium 3.4 L Chloride 112 H Carbon Dioxide 22 Anion Gap 8.0 BUN 22 H Creatinine 0.74 Est Cr Clr Drug Dosing 47.7 Est GFR ( Amer) 84.4 Est GFR (Non-Af Amer) 72.8 BUN/Creatinine Ratio 30.3 H Glucose 93 Calcium 9.3 Total Bilirubin AST ALT Alkaline Phosphatase Troponin I NT-Pro-B Natriuret Pep 38250 H Total Protein Albumin Globulin Albumin/Globulin Ratio Lipase COVID-19 Eval Order SARS-CoV-2, RNA, NAAT Diagnostic Findings Telemetry personally reviewed: Sinus rhythm. Medications Administered Current Inpatient Medications Acetaminophen (Acetaminophen 325 Mg Tab) 650 mg PO Q4H PRN PRN Reason: Pain or Fever Stop: 06/29/20 15:55 Albuterol (Albut/Ipratrop 3mg/0.5mg Neb 3 Ml Vial) 3 ml NEB Q4H PRN PRN Reason: Shortness Of Breath Or Wheezin Stop: 06/30/20 08:59 Apixaban (Apixaban 5 Mg Tablet) 5 mg PO BID [facility] Stop: 06/29/20 20:59 Last Admin: 05/31/20 08:41 Dose: 5 mg Documented by: Metoprolol Succinate (Metoprolol Succ 25mg Ext Rel Tab) 25 mg PO DAILY LYNETTE Stop: 06/30/20 08:59 Last Admin: 05/31/20 08:40 Dose: 25 mg Documented by: Multi-Ingredient Cream (Artificial Tears Op Oint 3.5 Gm Tube) 1 appln OP HS [facility] Stop: 06/29/20 20:59 Last Admin: 05/30/20 21:18 Dose: 1 appln Documented by: Multivitamins/Minerals (Cerovite Adv Formula Tab) 1 tab PO DAILY [facility] Stop: 06/30/20 08:59 Last Admin: 05/31/20 08:40 Dose: 1 tab Documented by: Oxybutynin Chloride (Oxybutynin Chloride 5 Mg Tab) 5 mg PO BID LYNETTE Stop: 06/29/20 20:59 Last Admin: 05/31/20 08:41 Dose: 5 mg Documented by: Pantoprazole Sodium (Pantoprazole 40 Mg Tab) 40 mg PO DAILY LYNETTE Stop: 06/30/20 08:59 Last Admin: 05/31/20 08:41 Dose: 40 mg Documented by: Prednisone (Prednisone 50 Mg Tab) 50 mg PO QAM LYNETTE Stop: 06/04/20 08:59 Last Admin: 05/31/20 08:40 Dose: 50 mg Documented by: Topiramate (Topiramate 50 Mg Tab) 50 mg PO BID LYNETTE Stop: 06/29/20 20:59 Last Admin: 05/31/20 08:41 Dose: 50 mg Documented by: Vitamin D (Cholecalciferol 1,000 Units 25 Mcg Tab) 1,000 units PO QAM [facility] Stop: 06/30/20 08:59 Last Admin: 05/31/20 08:40 Dose: 1,000 units Documented by: PG Care Time/CCT Total # of Minutes Spent Total Time Spent with Patient: Total time spent is greater than 50% in coordination of care (as documented) at patient's floor/unit and/or counseling patient: Coding Level of Care Code 06010 Office/Outpt Visit, Est Diagnoses Acute diastolic CHF (congestive heart failure) I50.31 Elevated troponin R77.8 Aortic stenosis I35.0 Cardiac valve disease etiology: etiology unspecified HTN (hypertension) I10 Hypertension type: essential hypertension Paroxysmal atrial fibrillation I48.0 S/P AVR Z95.2 Cancer C80.1 (1) Aortic stenosis Cardiac valve disease etiology: etiology unspecified Qualified Code(s): I35.0 - Nonrheumatic aortic (valve) stenosis (2) HTN (hypertension) Hypertension type: essential hypertension Qualified Code(s): I10 - Essential (primary) hypertension
--- NOTE | 2020-05-31 12:16 | Discharge Summary ---
Date of Service May 31, 2020 Admission HPI Per Admitting Provider Roya Robert is an 85-year-old female who presents to the ER with worsening shortness of breath over the last week. She reports a history of asthma with possible exacerbation related to a new couch and recent nasal surgery. She reports her shortness of breath much worse on any exertion, lying flat and at nighttime. She denies any associated chest pain, nausea, presyncope/syncope or diaphoresis. She took some prednisone 50 mg p.o. last night leftover from prior episode of COVID-19 and feels she is improved with this as well as some minimal improvement with her nebulizer at home. She has a notable history of COVID-19 in June 2019 with full recovery and has since received both doses of the COVID-19 vaccination. She also has a known history of severe aortic stenosis of her bioprosthetic valve. This was recently worked up at [facility] by cardiothoracic surgery. As part of this evaluation she underwent CT angiogram on December 21, 2019. This unfortunately showed concerning features for metastatic disease. 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 There are additional masses in the left posterior mediastinum as well as right pericardium, pulmonary nodules and enlarged bilateral hilar lymph nodes. The patient declined further work-up for this although is relatively unclear on what follow-up she has had. In the ER chest x-ray concerning for pulmonary vascular congestion and bilateral pleural effusions with bibasilar consolidation. She was referred to medicine for admission and ongoing management of shortness of breath, elevated troponin and pleural effusions. Principal Diagnosis Acute heart failure due to severe aortic stenosis, COPD exacerbation Discharge Exam Constitutional WD/WN, vitals as above Neck trachea midline, no thyromegaly Respiratory normal respiratory effort; no respiratory distress and no labored breathing Auscultation: + wheezes (faint end exhalation); no crackles, no rales and no rhonchi Cardiovascular Rate/Rhythm: regular rate and regular rhythm Heart Sounds: normal S1, normal S2 and + murmur Vessels: no JVD Extremities: normal capillary refill; no edema Gastrointestinal (Abdomen) normal bowel sounds, soft, nontender, no hepatosplenomegaly Musculoskeletal no cyanosis or clubbing, extremities motor strength 5/5 Skin no rashes, warm and dry Neurologic patellar DTR's 2+ bilat, sensation intact and PERRL, EOMI, accommodation nl, no face palsy, no dysarthria Psychiatric A+Ox3, euthymic affect Lymphatic no cervical or axillary lymphadenopathy Discharge Data Allergies Allergy/AdvReac Type Severity Reaction Status Date / Time adhesive tape Allergy Intermediate BURN SKIN Verified 05/30/20 10:07 Penicillins Allergy Intermediate swelling Verified 05/30/20 10:07 Consultations 05/30/20 11:24 ED Decision to Admit Stat 05/30/20 15:56 Consult Cardiology Routine 05/30/20 16:46 Consult Palliative Care Routine Hospital Course (1) Shortness of breath: Very exertional nature with angiographically normal-appearing coronary arteries on cath in November 2019 responded well to Lasix 20mg IV, d/w cardiology, will discharge on Lasix 10mg PO daily breathing is back to baseline will also continue to treat asthma exacerbation with Prednisone taper can take Ativan PRN for severe dyspnea, panic attacks, her goal is to be at home (2) Acute heart failure with preserved ejection fraction: Secondary to severe stenosis of the bioprosthetic aortic valve and moderate mitral regurgitation on echocardiogram in September 2019. Likely progressed but given nonsurgical candidate will defer repeating TTE to cardiology. Lasix 20 mg IV, great response d/c home on Lasix 10mg PO daily, potassium 20 daily follow up with Lizeth JONES heart failure clinic (3) Severe aortic stenosis: Previously worked up at [facility] and reportedly nonsurgical candidate unless she has her suspected metastatic disease evaluated and determined to have life expectancy beyond 1 year. Management as above. Lasix for volume Ativan for panic attacks related to breathing (4) H/O aortic valve replacement: (5) Bilateral pleural effusion: Likely contributing towards shortness of breath as above. Suspect CHF due to very orthopneic and exertional nature of her symptoms, however discussed these may also be malignant. Patient declines further work-up for her m alignancy at this time. (6) Asthma exacerbation: Apart from her insistence this feels like an asthma exacerbation, labs, imaging and examination are much more suggestive of heart failure associated with her aortic stenosis and possible malignancy. very faint wheezing on exam will send on Prednisone taper (7) Mass: Noted on CTA in December 2019. 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 Patient does not wish this further worked up. (9) Atrial fibrillation: Paroxysmal. Currently in normal sinus rhythm. Continue Eliquis for anticoagulation. (10) HTN (hypertension): Continue her usual metoprolol succinate 25 mg p.o. daily (11) History of migraine: Continue Topamax 50 mg p.o. twice daily (12) Epistaxis: Recent history of this requiring cauterization by Dr. Chow 3 days ago. Continue on Eliquis as patient has restarted full dose of this now. Recommend holding Celebrex as patient feels she could do without this medication. Total Time Total Time Spent Total Time Spent (In Minutes): 25 Total Time Includes: Examination of the Patient, Discharge Planning, Medication Reconciliation and Communication With Other Providers (cardiology) Discharge Plan Discharge Items Patient Disposition: Home - Self-Care Reason For Visit: ACUTE CHF SEVERE AORTIC STENOSIS Discharge Diagnosis: Acute heart failure due to severe aortic stenosis Condition on Discharge: Good Goals: control heart failure with Lasix Activity: Resume your previous activity Non-emergency contact: Primary Care Provider and Project Management Intern Call non-emergency contact if: you have any medication questions and your symptoms worsen Follow-up/Referrals: Helen Moreno MD [Primary Care Provider] - (one week) Lizeth Miller PA-C [Physician Pleat Patternmaker] - 06/07/20 2:00 pm (Congestive Heart Failure Program Appointment Information Early follow up is essential to managing your heart failure. An appointment has been scheduled for you with the [facility] Heart Failure Program within 7 days of discharge. Anticipate this visit to be 30-60 minutes long. Please expect a cleaner assistant phone call from one of our nurses approximately 48 hours from discharge. They will also be placing an order for lab work to be completed 1-2 days prior to your heart failure follow up appointment. Please be sure to have this done so we can go over the results when you come in. Office Location The cardiology office building is located in front of the hospital at [address] Bring the following with you to your follow-up doctor appointments: Please bring your daily weight log any discharge paperwork all of your medication bottles with you to this visit. ) Diet: Heart Healthy Addtl Attending Provider Instructions: Medications: - LASIX: 10mg daily to control volume, prevent acute heart failure - POTASSIUM: 20mEq daily to keep potassium normal, prevent leg cramps - PREDNISONE: 40mg daily for 5 more days, then slowly taper, take 30mg daily x 3 days, 20mg daily x 3 days then 10mg daily x 3 days this if for possible asthma exacerbation - ATIVAN: 0.5mg every 8 hours as needed for extreme anxiety or panic attack related to breathing if you are not better after 20 minutes you can repeat the 0.5mg dose this is only to be used for panic attacks, severe anxiety Acute heart failure due to severe aortic stenosis great response to Lasix 10mg IV breathing well on room air, appear euvolemic today cardiology recommends taking lasix 10mg daily with potassium you should step on scale every morning to keep track of your weight and discuss with Lizeth JONES if you have leg cramps on the Lasix and if you feel you are too dry, call Lizeth Miller to discuss there could be other options that could work like taking lasix every other day or only taking as needed if weight goes up for now try taking 10mg every morning until told otherwise Addtl Consulting Senior Practice Director Provider Instructions: Call your Primary Care doctor if any of the following symptoms or problems start or get worse: * Shortness of breath or difficulty breathing * Wake up at night short of breath * Chest pain * Cough * Swelling of your hands, feet, or legs * More fatigued or tired with your normal activity * Palpitations - sudden fast heart beats WEIGHT * Weigh yourself every morning after using the bathroom. * Use the same scale. * Wear the same amount of clothing. * Write your weight down on a chart. * Call your Primary Care doctor if you gain more than 2-3 pounds in 1-2 days. MEDICATIONS * Use this discharge instruction sheet for medication instructions. * Take your medications at the time your doctor ordered. * Do not skip a dose of your medicines. * If you miss a dose of medicine, take it as soon as possible, but DO NOT DOUBLE A DOSE. * Read your medicine information when you get home. * Know all of the side effects of your medicine. If in doubt, ask your pharmacist * Call your Primary Care doctor's office if you have any side effects. * Be sure all of your doctors know what medicine and herbs you take (including cold, flu, and herbal medicine). Take the following with you to your follow-up doctor appointments: * Weight Chart * Medication List * List of questions Do not drink excessive alcohol, beer or wine. Pending Studies at Discharge: No Stand-Alone Forms: My [facility] [employer], Smoking Cessation Medications and DC Order Prescriptions: New furosemide 20 mg Tablet 10 mg PO QAM 30 Days Qty: 15 RF: 3 potassium chloride 20 mEq tablet extended release 20 meq PO DAILY Qty: 30 RF: 3 prednisone 10 mg tablet 40 mg PO UD 14 Days Qty: 38 RF: 0 lorazepam [Ativan] 0.5 mg tablet 0.5 mg PO Q8H PRN (Reason: anxiety) Qty: 60 RF: 0 Continued oxybutynin chloride 5 mg tablet 5 mg PO BID Qty: 60 RF: 5 dextran 70-hypromellose 0.1-0.3 % drops 1 drops OP UD RF: 0 krill oil 500 mg capsule 500 mg PO QAM RF: 0 cholecalciferol (vitamin D3) 25 mcg (1,000 unit) tablet 1,000 units PO QAM RF: 0 white petrolatum-mineral oil 57.3-42.5 % ointment 1 appln OP HS RF: 0 omeprazole 20 mg capsule,delayed release(DR/EC) 20 mg PO DAILY RF: 0 Hair,Skin and Nails 1 mg iron-66.7 mcg-1,000 mcg Tablet 1 tab PO DAILY RF: 0 celecoxib 100 mg capsule 100 mg PO BID RF: 0 sumatriptan succinate [Imitrex] 100 mg tablet See Rx Instructions .ROUTE .COMPLEX PRN (Reason: Migraine Headache) RF: 0 metoprolol succinate [Toprol XL] 25 mg tablet extended release 24 hr 25 mg PO DAILY RF: 0 topiramate [Topamax] 50 mg tablet 50 mg PO BID RF: 0 Eliquis 5 mg tablet 5 mg PO BID RF: 0 Discharge Orders: Discharge Order (Routine); Ordered 05/31/20 Ordered By: Sridhar Chilel/Other Patient Handouts: Heart Failure Meds Admission Data Admit Date/Time: 05/30/20 11:56 Attending Provider: Sridhar Quinones Admit Provider: Ishaan Chan Primary Care Provider: Helen Moreno Other Providers: Ishaan Chan ; Deonte Schuster ; Danya Meléndez Other Interventions: Discharge Summary Assessment (RN) Last Done: 05/31/20 12:31 Coding Level of Care Code 49936 OBS Care - Discharge Diagnoses Shortness of breath R06.02 Acute heart failure with preserved ejection fraction I50.31 Severe aortic stenosis I35.0 H/O aortic valve replacement Z95.2 Bilateral pleural effusion J90 Asthma exacerbation J45.901 Mass Mediastinal mass J98.59 Atrial fibrillation I48.0 Atrial fibrillation type: paroxysmal HTN (hypertension) I10 Hypertension type: essential hypertension History of migraine Z86.69 Epistaxis R04.0
[2020-06-01] MEDS ORDERED: FUROSEMIDE 20 MG TAB PO SCH (09:00)
== END 2020-05-31 14:48 | disposition home or self-care (01) ==
LOC: ED 09:18 → 2N 09:18 → SUATTDRO 11:56 → 2N 15:22